=== PATIENT | female | born 1935 | race Caucasian/White ===

== ENCOUNTER → 2017-06-05 | Outpatient (CLI) | payer OTHER, BC ==
[2017-06-05 12:34] LABS: HEMATOCRIT 41.5 % (37-47); HEMOGLOBIN 13.8 g/dL (12.0-16.0); MEAN CELL VOLUME 87.2 fL (80-100); MEAN CORPUSCULAR HGB CONC 33.3 g/dl (32-36); MEAN PLATELET VOLUME 10.5 fL (7.4-10.4); PLATELET COUNT 301 K/uL (130-400); RED CELL DISTRIBUTION WIDTH CV 14.5 % (11.5-14.5); RED CELL DISTRIBUTION WIDTH SD 46.3 fL (36.4-46.3); WHITE BLOOD COUNT 5.52 K/uL (4.8-10.8)
[2017-06-05 13:44] LABS: BLOOD UREA NITROGEN 14 mg/dl (7-18); CARBON DIOXIDE 29 mmol/L (21-32); GLUCOSE 117 mg/dl (70-99); POTASSIUM 3.5 mmol/L (3.5-5.1); SODIUM 137 mmol/L (136-145)
== END | disposition home or self-care (01) ==
LOC: C.LABOAKS 12:55
PROVIDERS: ATTEND Nurse Practitioner
DX: I10 Essential (primary) hypertension (principal); R53.83 Other fatigue

== ENCOUNTER 2018-06-11 19:10 | Inpatient (IN) ==
[2018-06-11] MEDS ORDERED: SODIUM CHLORIDE 0.9% 500 ML IV SCH ×2 (19:45→21:30)
[2018-06-11 19:55] LABS: Basophils # (auto) 0.02 K/uL (0-0.2); Basophils % (auto) 0.2 %; Eosinophils # (auto) 0.15 K/uL (0-0.5); Eosinophils % (auto) 1.2 %; Hematocrit (blood only) 45.5 % (37-47); Hemoglobin 16.1 g/dL (12.0-16.0); Immature Granulocytes % (auto) 0.8 %; Lymphocytes # (auto) 1.62 K/uL (1.2-3.4); Lymphocytes % (auto) 12.6 %; Mean Corpuscular Hgb Conc 35.4 g/dL (32-36); Mean Corpuscular Volume 82.6 fL (80-100); Mean Platelet Volume 9.8 fL (7.4-10.4); Monocytes # (auto) 0.88 K/uL (0.11-0.59); Monocytes % (auto) 6.9 %; Neutrophils # (auto) 10.06 K/uL (1.4-6.5); Neutrophils % (auto) 78.3 %; Platelet Count 350 K/uL (130-400); RDW Coefficient of Variation 14.3 % (11.5-14.5); RDW Standard Deviation 43.1 fL (36.4-46.3); Red Blood Count 5.51 M/uL (4.2-5.4); White Blood Count 12.83 K/uL (4.8-10.8)
--- NOTE | 2018-06-11 20:05 | XRay Report ---
XR chest 1V portable CLINICAL HISTORY: weak eval for pna pain COMPARISON STUDY: No previous studies for comparison. FINDINGS: The bones soft tissues and hemidiaphragms are normal. The cardiomediastinal silhouette is n ormal. The lungs are clear. The pulmonary vasculature is normal. IMPRESSION: Negative chest. The above report was generated using voice recognition software. It may contain grammatical, syntax or spelling errors. Electronically signed by: Sanjay Abrams M.D. 06/11/2018 8:03 PM
[2018-06-11 20:12] LABS: iSTAT Creatinine 0.8 mg/dl (0.6-1.3); iSTAT Ionized Calcium 1.15 mmol/l (1.12-1.32)
[2018-06-11 20:13] LABS: Alanine Aminotransferase 40 U/L (12-78); Albumin Level 3.6 gm/dl (3.4-5.0); Aspartate Aminotransferase 31 U/L (15-37); Blood Urea Nitrogen 35 mg/dl (7-18); Calcium 9.3 mg/dl (8.5-10.1); Carbon Dioxide 25 mmol/L (21-32); Chloride 100 mmol/L (98-107); Est GFR (Non-African American) 54.4; Glucose 164 mg/dl (70-99); Sodium 137 mmol/L (136-145)
[2018-06-11 20:16] LABS: Magnesium 2.5 mg/dl (1.8-2.4)
[2018-06-11 20:21] LABS: Albumin Globulin Ratio 0.8 (0.9-2); Alkaline Phosphatase 115 U/L (45-117); Creatine Kinase MB 1.3 ng/ml (0.5-3.6); Globulin 4.3 gm/dl (2.5-4.0); Total Protein 7.9 gm/dl (6.4-8.2)
[2018-06-11] MEDS ORDERED: POTASSIUM CHLORIDE 10 MEQ TABCR PO STA (20:28)
[2018-06-11] MEDS ORDERED: METOPROLOL TARTRATE 1 MG/ML VIAL IV ONE (21:08)
[2018-06-11] MEDS ORDERED: POTASSIUM CHLORIDE / WTR 10 MEQ/100 ML PLCT IV STA (21:29)
[2018-06-11] MEDS ORDERED: METOPROLOL TARTRATE 1 MG/ML VIAL IV PRN (21:29)
[2018-06-11] MEDS ORDERED: LOSARTAN POTASSIUM 25 MG TAB PO STA (21:29)
[2018-06-11] MEDS ORDERED: ONDANSETRON INJ 2 MG/ML 2 ML VIAL IV PRN (22:43)
[2018-06-11] MEDS ORDERED: PIPERACILL/TAZOBAC CONSULT ACTIVE PRN (22:43)
[2018-06-11] MEDS ORDERED: SERTRALINE HCL 50 MG TABLET PO ONE (22:43)
[2018-06-11] MEDS ORDERED: NITROGLYCERIN SL 0.4 MG/TAB TAB SL PRN (22:43)
[2018-06-11] MEDS ORDERED: ACETAMINOPHEN 325 MG TAB PO PRN (22:43)
[2018-06-11] MEDS: NSS + 20MEQ KCL 20 MEQ/1,000 ML BAG IV SCH (22:45)
[2018-06-11] MEDS ORDERED: PATIENT'S HEIGHT AND/OR WEIGHT NEEDED SCH (23:00)
[2018-06-11] MEDS ORDERED: PIPERACILLIN/TAZOBACTAM 3.375 GM in DEXTROSE 5% 100 ML IV SCH (23:00)
[2018-06-11 23:12] LABS: Troponin I < 0.015 ng/ml (0-0.045)
[2018-06-11 23:13] LABS: INR 1.1 (0.9-1.1); Partial Thromboplastin Time 25.9 Seconds (21.0-31.0); Prothrombin Time 11.1 Seconds (9.0-12.0)
[2018-06-11] MEDS: HEPARIN SOD 5,000 UNIT/0.5 ML VIAL SQ SCH (23:44)
--- NOTE | 2018-06-11 23:52 | History and Physical Report ---
DATE OF ADMISSION: 06/11/2018 CHIEF COMPLAINT: Weakness. HISTORY OF PRESENT ILLNESS: This is an 82-year-old female with past medical history significant for hypertension, depression, recent diagnosis of shingles on her back about a month ago, finished prednisone and gabapentin, who lives at [facility]. She walks with a walker. Daughter helps her going out and getting food. On Sunday she went out to eat food and came back and sat on the couch and she is did not feel like getting up and she sat on the couch for whole until today. She did not feel like calling anyone. She did not eat anything. She did not take any medications. She wetted herself with bowel and bladder movements and today she decided to call her daughter and the daughter came and checked her and and cleaned her and brought the patinet to the ER. In the ER her labs showed hypokalemia. Vitals were stable, white count of 12, rest of the labs were okay. The patient went into SVT in the ER and the ER physician did a carotid massage which broke it, but later when I saw her, again she was in SVT ried carotid massage but was still in SVT.Given a dose of IV Lopressor, which brought her back to sinus rhythm. The patient also had decubitus ulcers in the coccyx region. Daughter said that they are there for 1 month. The patient denies any headache. No blurred visions. No earache. No runny nose, no sore throat, no difficulty swallowing. Denies any chest pain, no shortness of breath, no cough, no fever, no chills, no nausea, no vomiting, no abdominal pain and no swelling in the legs or rash. Currently resting comfortably and hemodynamically stable. ALLERGIES: No known drug allergies. PAST MEDICAL HISTORY: As mentioned above. PAST SURGICAL HISTORY: She had a right hip surgery. MEDICATIONS: The patient is on chlorthalidone 25 mg seems to be taken daily, losartan 50 mg daily, Zoloft 50 and 20 mg tablets daily, Crestor taking daily. Daughter says she is not taking her medications as was supposed to take them FAMILY HISTORY: Noncontributory. SOCIAL HISTORY: She states quit smoking about 2 years ago. Prior to that smoked on and off for a long time about pack a day. Alcohol occasional. Lives at the [facility]. REVIEW OF SYMPTOMS: As per HPI. Rest of review of systems negative. PHYSICAL EXAMINATION: GENERAL: The patient is of moderate build, not in acute distress. VITAL SIGNS: Temperature 36.8, pulse 84, respiratory rate 18, blood pressure 131/74, oxygen 97% on room air. HEENT: No pallor, no icterus. Pupils equal, round, and reactive to light. NECK: No JVD, no neck masses, no carotid bruits. CARDIOVASCULAR: S1, S2 heard, regular rate and rhythm, no murmur, no gallop. RESPIRATORY SYSTEM: Normal effort. No accessory muscle use. No wheezing, no crackles. ABDOMEN: Soft, bowel sounds present. Nontender. No distention. CENTRAL NERVOUS SYSTEM: Cranial nerves II-XII grossly intact. Nonfocal. EXTREMITIES: No edema, no erythema. Skin Stage 3-4 decubitus ulcers in coccyx region LABORATORY DATA: WBC 12.8, hemoglobin 16.1, hematocrit 45.5, platelets 350. Sodium 137, potassium 3, chloride 100, bicarbonate 25, BUN 35, creatinine 0.9, serum glucose 164, calcium 9.3, magnesium 2.5, total bilirubin 1, AST 31, ALT 40, alkaline phosphatase is 115, total creatine kinase 112, CK-MB 1.3, troponin less than 0.003, TSH 2.5. Chest x-ray, negative chest x-ray. EKG: Showed normal sinus rhythm, rate of 88, nonspecific ST abnormalities seen. ASSESSMENT AND PLAN: This is an 82-year-old female who presents with weakness. 1. Weakness. The patient was not able to get up from the couch since last Sunday. Recently had shingles and treated with prednisone and gabapentin, but no longer taking those medications. Her labs are okay, awaiting urinalysis. We will get PT, OT evaluation. Monitor in the hospital. 2. Supraventricular tachycardia. The patient has episodes of supraventricular tachycardia in the ER which was initially broke with carotid massage and second time was given IV Lopressor which helped. We will start her on IV Lopressor p.r.n. It could be from the dehydration or could be from hypokalemia. We will replace the potassium. We will monitor on tele floor. Serial cardiac enzymes, echocardiogram. Consult Cardiology for further recommendations. 3. Decubitus ulcer stage III to IV on the buttock region. We will get the cultures, wound care and was started on Zosyn. 4. Shingles from last 1 month, seems to be healed. The patient says the pain is much improved. Was treated with gabapentin and prednisone, but she says she is no longer taking them. 5. History of hypertension, seems to be on chlorthalidone and losartan, did not take this medication from last Sunday. Holding the chlorthalidone for Hypokalemia. Continue losartan with holding parameters. 6. Depression, on Zoloft. 7. Deep venous thrombosis prophylaxis. Heparin subQ. 8. Disposition: Monitor in tele floor. Level 1. Full code as per discussion with the daughter. PT and OT. Social service to help with discharge planning. WEN
--- NOTE | 2018-06-12 01:04 | Emergency Department Note ---
Entered by Summer Bernal acting as a scribe for History of Present Illness General Chief complaint: Weakness Stated complaint: WEAKNESS, ULCERS ON BUTTOCKS Source: patient Mode of arrival: EMS Limitations: no limitations History of Present Illness Provider complaint: Weakness Onset (ago): day(s) 3 Pain Consistency: + other (worsening) Quality: + other (weakness) Associated symptoms: + other (Additional symptoms: fatigue, sores on buttocks. Denies: abdominal pain, diarrhea, hematochezia, melena); no chest pain, no cough, no fever/chills, no nausea/vomiting and no shortness of breath Treatments prior to arrival: none The patient is an 82 year old female with no significant past medical history who presents to the Emergency Room with complaints of worsening weakness starting 3 days ago. The patient reports that she sat down on a recliner at home 3 days ago and was unable to get up until her daughter visited her today. She states that she thus did not eat and drink for 3 days and had to go to the bathroom on herself. She notes that she is tired but otherwise denies any cough, shortness of breath, abdominal pain, chest pain, vomiting, fevers, diarrhea, hematochezia, and melena. Per daughter, the patient lives by herself in the independent living care side of the [facility]. The daughter reports that she last visited the patient 5 days ago and has called her several times over the past few days. She states that the patient only confessed that she has been stuck in her chair today. The daughter notes that she and nursing staff at the [facility] subsequently went to the patient's home and helped her get up. Per daughter, the patient was able to tolerate jello, meat sticks, and water, and she urinated in the bathroom just before EMS convinced the patient to come to the ED. She adds the urine on the patient's recliner did not appear that dark and that the nurses noted several sores on the patient's buttocks. The patient denies a history of atrial fibrillation, and her daughter states that the patient normally sees the doctor at the [facility]. Home Medications Home Medications Medication Instructions Recorded Confirmed Type chlorthalidone 25 mg PO DIRECTED 06/11/18 06/11/18 History gabapentin 300 mg PO DIRECTED 06/11/18 06/11/18 History losartan 50 mg PO DIRECTED 06/11/18 06/11/18 History prednisone 20 mg PO DIRECTED 06/11/18 06/11/18 History sertraline [Zoloft] 25 mg PO DIRECTED 06/11/18 06/11/18 History sertraline [Zoloft] 50 mg PO DIRECTED 06/11/18 06/11/18 History Allergies Allergy/AdvReac Type Severity Reaction Status Date / Time No Known Allergies Allergy Verified 06/11/18 21:05 Past Med/Surg History Medical History No significant past medical history Social History Preferred Language: Occitan Communication Ability: Effective Digital Sales Director Required: No Beliefs That Will Affect Care: None Current Living Situation: Personal Care Facility Current Living Situation Comment: Lives at [facility] current occupational status: retired Other Information That Helps Us Care for You: No Feels Safe at Home: Yes Safety Concerns: Feels Safe At This Time Smoking Status: Never smoker Do You Dip or Chew Tobacco: No Second Hand Exposure: No Tobacco Cessation Education Requested by Patient: No Hx Alcohol Use: No Hx Substance Use: No Review of Systems See HPI for pertinent positives & negatives. and A total of 10 systems reviewed and were otherwise negative Physical Exam Vital Signs Vital Signs - 24 hr 06/11/18 19:16 06/11/18 19:19 06/11/18 19:24 Temperature 36.8 C Temperature Source Oral Sepsis Recent Fever Within 48 Hours No Sepsis Action Taken by Nursing No Action Required Pulse Rate 98 H 160 H 97 H Pulse Rate [Apical] Pulse Rate from SpO2 Sensor 98 H 159 H Pulse Rhythm [Apical] Pulse Strength [Apical] Respiratory Rate 22 22 22 Respiratory Effort / Characteristics Respiratory Depth Respiratory Pattern Blood Pressure 139/77 139/77 Blood Pressure [Right Arm] Blood Pressure Mean 97 97 Blood Pressure Mean [Right Arm] Pulse Oximetry 96 95 97 Oxygen Delivery Method Room Air 06/11/18 19:30 06/11/18 20:00 06/11/18 20:30 Temperature Temperature Source Sepsis Recent Fever Within 48 Hours Sepsis Action Taken by Nursing Pulse Rate 95 H 150 H 85 Pulse Rate [Apical] Pulse Rate from SpO2 Sensor 102 H Pulse Rhythm [Apical] Pulse Strength [Apical] Respiratory Rate 24 18 23 Respiratory Effort / Characteristics Respiratory Depth Respiratory Pattern Blood Pressure Blood Pressure [Right Arm] Blood Pressure Mean Blood Pressure Mean [Right Arm] Pulse Oximetry 96 Oxygen Delivery Method 06/11/18 20:52 06/11/18 21:04 06/11/18 21:10 Temperature Temperature Source Sepsis Recent Fever Within 48 Hours Sepsis Action Taken by Nursing Pulse Rate 168 H 152 H Pulse Rate [Apical] Pulse Rate from SpO2 Sensor Pulse Rhythm [Apical] Pulse Strength [Apical] Respiratory Rate 24 33 H Respiratory Effort / Characteristics Respiratory Depth Respiratory Pattern Blood Pressure 144/91 H Blood Pressure [Right Arm] Blood Pressure Mean 108 Blood Pressure Mean [Right Arm] Pulse Oximetry 97 Oxygen Delivery Method Room Air 06/11/18 21:13 06/11/18 21:16 06/11/18 21:17 Temperature Temperature Source Sepsis Recent Fever Within 48 Hours Sepsis Action Taken by Nursing Pulse Rate 161 H 84 77 Pulse Rate [Apical] Pulse Rate from SpO2 Sensor Pulse Rhythm [Apical] Pulse Strength [Apical] Respiratory Rate 18 16 Respiratory Effort / Characteristics Respiratory Depth Respiratory Pattern Blood Pressure 144/91 H 131/74 Blood Pressure [Right Arm] Blood Pressure Mean 93 Blood Pressure Mean [Right Arm] Pulse Oximetry Oxygen Delivery Method 06/11/18 21:30 06/11/18 21:31 06/11/18 21:32 Temperature Temperature Source Sepsis Recent Fever Within 48 Hours Sepsis Action Taken by Nursing Pulse Rate 73 72 74 Pulse Rate [Apical] Pulse Rate from SpO2 Sensor Pulse Rhythm [Apical] Pulse Strength [Apical] Respiratory Rate 19 20 16 Respiratory Effort / Characteristics Respiratory Depth Respiratory Pattern Blood Pressure 133/87 Blood Pressure [Right Arm] Blood Pressure Mean 102 Blood Pressure Mean [Right Arm] Pulse Oximetry 97 Oxygen Delivery Method Room Air 06/11/18 21:46 06/11/18 22:00 06/11/18 22:01 Temperature Temperature Source Sepsis Recent Fever Within 48 Hours Sepsis Action Taken by Nursing Pulse Rate 71 70 69 Pulse Rate [Apical] Pulse Rate from SpO2 Sensor Pulse Rhythm [Apical] Pulse Strength [Apical] Respiratory Rate 16 21 19 Respiratory Effort / Characteristics Respiratory Depth Respiratory Pattern Blood Pressure 145/83 H 136/74 Blood Pressure [Right Arm] Blood Pressure Mean 103 94 Blood Pressure Mean [Right Arm] Pulse Oximetry Oxygen Delivery Method 06/11/18 22:51 06/11/18 22:56 06/11/18 23:00 Temperature 36.6 C Temperature Source Oral Sepsis Recent Fever Within 48 Hours Sepsis Action Taken by Nursing Pulse Rate 71 Pulse Rate [Apical] 70 Pulse Rate from SpO2 Sensor Pulse Rhythm [Apical] Regular Pulse Strength [Apical] Normal Respiratory Rate 18 Respiratory Effort / Characteristics Non-Labored Spontaneous Non-Labored Spontaneous Respiratory Depth Normal Normal Respiratory Pattern Agonal Regular Blood Pressure Blood Pressure [Right Arm] 133/79 Blood Pressure Mean Blood Pressure Mean [Right Arm] 97 Pulse Oximetry 98 Oxygen Delivery Method Room Air Room Air Constitutional: Vital signs reviewed. Eyes: Pupils are equal round reactive to light. Conjunctiva are noninjected. ENT: Pharynx is clear without erythema or exudate. Mucous membranes are moist. Neck supple without meningeal signs. Respiratory: Clear to auscultation bilaterally. Breath sounds are equal bilaterally. Cardiovascular: Regular rate and rhythm. No rubs or gallops. GI: Soft, nondistended and nontender. Bowel sounds are present. Musculoskeletal: No peripheral edema. No lower extremity tenderness. Integumentary: No cyanosis. Decubiti on the buttocks bilaterally. Neurological: The patient is awake and alert. No focal deficits. Psychiatric: Normal affect. Course 1923: [facility] and a complete history and physical examination were performed. 2031: I checked on the patient and she has no complaints at this time. Her heart rate is in the 80s. I recommended hospitalization. The nurses are getting a cath urine from her. 2035: I reviewed the patient's case with Dr. Bunn - Awa Ruiz. Dr. Bunn will evaluate the patient for further management. Consultations Consultation #1: I reviewed the patient's case with Awa Mckeon. Dr. Bunn will evaluate the patient for further management. Time: 20:36 Administered Medications Heparin Sodium (Porcine) (Heparin Sodium (Porcine)) 5,000 units SQ Q8 [facility] Stop: 07/11/18 22:42 Last Admin: 06/11/18 23:44 Dose: 5,000 units Documented by: [id number] Cosigned by: [id number] Potassium Chloride/Sodium Chloride (Normal Saline W/20 Meq Kcl) 20 meq in 1,000 mls @ 100 mls/hr IV .Q10H ELSIE Stop: 07/11/18 21:28 Last Admin: 06/11/18 22:45 Dose: 100 mls/hr Documented by: [id number] Discontinued Medications Sodium Chloride (Nss) 500 mls @ 999 mls/hr IV .Q31M ELSIE Stop: 06/11/18 20:15 Last Infusion: 06/11/18 20:48 Dose: 0 mls/hr Documented by: [id number] Admin: 06/11/18 19:52 Dose: 999 mls/hr Documented by: [id number] Sodium Chloride (Nss) 500 mls @ 999 mls/hr IV .Q31M ELSIE Stop: 06/11/18 22:00 Last Infusion: 06/11/18 22:45 Dose: 0 mls/hr Documented by: [id number] Admin: 06/11/18 21:40 Dose: 999 mls/hr Documented by: [id number] Potassium Chloride (K John / Wtr) 10 meq in 100 mls @ 100 mls/hr IV Q1H STA Stop: 06/11/18 22:28 Last Infusion: 06/11/18 23:17 Dose: 0 mls/hr Documented by: [id number] Admin: 06/11/18 21:39 Dose: 100 mls/hr Documented by: [id number] Piperacillin Sod/Tazobactam (Sod 3.375 gm/ Dextrose) 115 mls @ 230 mls/hr IV TODAY@2300 ELSIE; Protocol Stop: 06/11/18 23:29 Last Infusion: 06/12/18 00:17 Dose: 0 mls/hr Documented by: [id number] Admin: 06/11/18 23:43 Dose: 230 mls/hr Documented by: [id number] Losartan Potassium (Cozaar) 25 mg PO NOW STA Stop: 06/11/18 21:30 Last Admin: 06/11/18 21:40 Dose: 25 mg Documented by: [id number] Metoprolol Tartrate (Lopressor) Confirm Administered Dose 5 mg IV .STK-MED ONE Stop: 06/11/18 21:09 Last Increment: 06/11/18 21:13 Dose: 2.5 mg Documented by: [id number] Miscellaneous (Patient's Height And/Or Weight Needed) 1 ea N/A Q2H [facility] Stop: 07/11/18 22:59 Last Admin: 06/11/18 23:54 Dose: Not Given Documented by: [id number] Potassium Chloride (Klor-Con M10) 20 meq PO NOW STA Stop: 06/11/18 20:29 Last Admin: 06/11/18 21:13 Dose: 20 meq Documented by: [id number] Sertraline HCl (Zoloft) 50 mg PO NOW ONE Stop: 06/11/18 22:44 Last Admin: 06/11/18 23:43 Dose: 50 mg Documented by: [id number] Medical Decision Making Differential Diagnosis Differential diagnosis includes: acute kidney injury, rhabdomyolysis, hyperkalemia, SVT, dehydration, infection. Medical Records Attestation: I reviewed the patient's medical records. I did perform a limited focused review of portions of the patient's old chart on the electronic medical record. The patient has had no recent pertinent visits to this hospital. Home Medications Current Medication List: was personally reviewed by me Laboratory Data Attestation: I reviewed the patient's lab results. Result diagrams: 06/11/18 19:40 06/11/18 19:40 Lab Results 06/11/18 06/11/18 06/11/18 Range/Units 19:40 19:40 19:40 WBC 12.83 H (4.8-10.8) K/uL RBC 5.51 H (4.2-5.4) M/uL Hgb 16.1 H (12.0-16.0) g/dL POC Hgb (12.0-16.0) g/dl Hct 45.5 (37-47) % POC Hct (37-47) % MCV 82.6 (80-100) fL MCH 29.2 (25-34) pg MCHC 35.4 (32-36) g/dL RDW Std Deviation 43.1 (36.4-46.3) fL RDW Coeff of Ranjana 14.3 (11.5-14.5) % Plt Count 350 (130-400) K/uL MPV 9.8 (7.4-10.4) fL Immature Gran % (Auto) 0.8 % Neut % (Auto) 78.3 % Lymph % (Auto) 12.6 % Runnels % (Auto) 6.9 % Eos % (Auto) 1.2 % Baso % (Auto) 0.2 % Immature Gran # (Auto) 0.10 H (0.00-0.02) K/uL Neut # (Auto) 10.06 H (1.4-6.5) K/uL Lymph # (Auto) 1.62 (1.2-3.4) K/uL Runnels # (Auto) 0.88 H (0.11-0.59) K/uL Eos # (Auto) 0.15 (0-0.5) K/uL Baso # (Auto) 0.02 (0-0.2) K/uL PT (9.0-12.0) Seconds INR (0.9-1.1) APTT (21.0-31.0) Seconds PTT Ratio POC Sodium (135-144) mEq/L Sodium 137 (136-145) mmol/L POC Potassium (3.3-5.0) mEq/L Potassium 3.0 L (3.5-5.1) mmol/L POC Chloride (101-112) mEq/L Chloride 100 (98-107) mmol/L Carbon Dioxide 25 (21-32) mmol/L POC Total CO2 (24-31) mEq/l Anion Gap 11.0 (3-11) POC Anion Gap (16-25) mmol/L POC BUN (7-18) mg/dl BUN 35 H (7-18) mg/dl Creatinine 0.97 (0.6-1.2) mg/dl POC Creatinine (0.6-1.3) mg/dl Est Cr Clr Drug Dosing Not Reportable Est GFR ( Amer) 63.0 Est GFR (Non-Af Amer) 54.4 BUN/Creatinine Ratio 36.0 H (10-20) Glucose 164 H (70-99) mg/dl POC Glucose (other) (70-99) mg/dl Calcium 9.3 (8.5-10.1) mg/dl POC Ioniz Calcium Massiel (1.12-1.32) mmol/l Magnesium 2.5 H (1.8-2.4) mg/dl Total Bilirubin 1.0 (0.2-1) mg/dl AST 31 (15-37) U/L ALT 40 (12-78) U/L Alkaline Phosphatase 115 (45-117) U/L Total Creatine Kinase 112 (26-192) U/L CK-MB (CK-2) 1.3 (0.5-3.6) ng/ml POC Troponin I (0-0.045) ng/ml Troponin I < 0.015 (0-0.045) ng/ml Total Protein 7.9 (6.4-8.2) gm/dl Albumin 3.6 (3.4-5.0) gm/dl Globulin 4.3 H (2.5-4.0) gm/dl Albumin/Globulin Ratio 0.8 L (0.9-2) TSH 2.590 (0.300-4.500) uIu/ml 06/11/18 06/11/18 06/11/18 Range/Units 19:40 19:48 19:50 WBC (4.8-10.8) K/uL RBC (4.2-5.4) M/uL Hgb (12.0-16.0) g/dL POC Hgb 17.0 H (12.0-16.0) g/dl Hct (37-47) % POC Hct 50 H (37-47) % MCV (80-100) fL MCH (25-34) pg MCHC (32-36) g/dL RDW Std Deviation (36.4-46.3) fL RDW Coeff of Ranjana (11.5-14.5) % Plt Count (130-400) K/uL MPV (7.4-10.4) fL Immature Gran % (Auto) % Neut % (Auto) % Lymph % (Auto) % Runnels % (Auto) % Eos % (Auto) % Baso % (Auto) % Immature Gran # (Auto) (0.00-0.02) K/uL Neut # (Auto) (1.4-6.5) K/uL Lymph # (Auto) (1.2-3.4) K/uL Runnels # (Auto) (0.11-0.59) K/uL Eos # (Auto) (0-0.5) K/uL Baso # (Auto) (0-0.2) K/uL PT 11.1 (9.0-12.0) Seconds INR 1.1 (0.9-1.1) APTT 25.9 (21.0-31.0) Seconds PTT Ratio 1.0 POC Sodium 138 (135-144) mEq/L Sodium (136-145) mmol/L POC Potassium 3.0 L (3.3-5.0) mEq/L Potassium (3.5-5.1) mmol/L POC Chloride 99 L (101-112) mEq/L Chloride (98-107) mmol/L Carbon Dioxide (21-32) mmol/L POC Total CO2 25 (24-31) mEq/l Anion Gap (3-11) POC Anion Gap 19.0 (16-25) mmol/L POC BUN 35 H (7-18) mg/dl BUN (7-18) mg/dl Creatinine (0.6-1.2) mg/dl POC Creatinine 0.8 (0.6-1.3) mg/dl Est Cr Clr Drug Dosing Est GFR ( Amer) Est GFR (Non-Af Amer) BUN/Creatinine Ratio (10-20) Glucose (70-99) mg/dl POC Glucose (other) 175 H (70-99) mg/dl Calcium (8.5-10.1) mg/dl POC Ioniz Calcium Massiel 1.15 (1.12-1.32) mmol/l Magnesium (1.8-2.4) mg/dl Total Bilirubin (0.2-1) mg/dl AST (15-37) U/L ALT (12-78) U/L Alkaline Phosphatase (45-117) U/L Total Creatine Kinase (26-192) U/L CK-MB (CK-2) (0.5-3.6) ng/ml POC Troponin I < 0.03 (0-0.045) ng/ml Troponin I (0-0.045) ng/ml Total Protein (6.4-8.2) gm/dl Albumin (3.4-5.0) gm/dl Globulin (2.5-4.0) gm/dl Albumin/Globulin Ratio (0.9-2) TSH (0.300-4.500) uIu/ml Imaging Data Radiologist's Impression: Radiology results as stated below per my review and th e radiologist's interpretation: XR chest 1V portable CLINICAL HISTORY: weak eval for pna pain COMPARISON STUDY: No previous studies for comparison. FINDINGS: The bones soft tissues and hemidiaphragms are normal. The cardiomediastinal silhouette is normal. The lungs are clear. The pulmonary vasculature is normal. IMPRESSION: Negative chest. The above report was generated using voice recognition software. It may contain grammatical, syntax or spelling errors. Electronically signed by: Sanjay Abrams M.D. 06/11/2018 8:03 PM ECG Data Attestation: I personally reviewed and interpreted this ECG as follows: Indication: weakness Rate (beats per minute): 88 Rhythm: normal sinus Findings: + other (flattened T waves, QRS is 74 ms); no ST elevation Blood Pressure Blood Pressure Findings: Normal blood pressure MDM Narrative I did evaluate the patient as noted above. Patient is presenting with generalized weakness. She sat down on Sunday and has not been able to get up since. She was unable to eat or drink or get to the bathroom. Her daughter found her today. While I was examining the patient the patient went into SVT. I did perform a carotid massage and she was converted back to normal sinus rhythm. She was asymptomatic during this time and did not notice any palpitations or shortness of breath or chest pain. IV access was established. The patient was placed on a continuous radiation monitor. I did order and personally review the patient's 12-lead EKG as described above. She has no signs of acute ischemia. I did order and personally reviewed the images of the patient's chest x-ray as described above. There is no evidence of pneumonia. I did order a urine analysis. I did order and review the patient's blood work as noted in the electronic medical record. She has hypokalemia and hypomagnesemia. Her renal function is unremarkable. She does appear slightly hemoconcentrated consistent with diet dehydration. She was given normal saline IV. I did discuss the test results with the patient. I did recommend hospitalization for further care and evaluation. She was given oral potassium here. I did discuss case with the hospitalist and trimming caser. Impression & Plan Generalized weakness, Ambulatory dysfunction, Hypokalemia, Hypermagnesemia, Sacral decubitus ulcer, SVT (supraventricular tachycardia) Discharge Plan Visit Data *Final* Discharge Date/Time: 06/11/18 22:06 Chief Complaint: Weakness Stated Complaint: WEAKNESS, ULCERS ON BUTTOCKS ED Provider: Eliel Palomo Discharge Problem: Generalized weakness, Ambulatory dysfunction, Hypokalemia, Hypermagnesemia, Sacral decubitus ulcer, SVT (supraventricular tachycardia) Patient Disposition: Admitted As Inpatient Discharge Instructions Interventions: ED Discharge Assessment Last Done: 06/11/18 22:06 Discharge Problem: Sacral decubitus ulcer Qualifiers: Pressure injury stage: unspecified pressure injury stage Qualified Code(s): L89.159 - Pressure ulcer of sacral region, unspecified stage The scribe's documentation has been prepared under my direction and personally reviewed by me in its entirety. I confirm that the note above accurately reflects all work, treatment, procedures, and medical decision making performed by me.
[2018-06-12] MEDS: PIPERACILLIN/TAZOBACTAM 3.375 GM in DEXTROSE 5% 100 ML IV SCH ×3 (03:48→20:30)
[2018-06-12 05:13] LABS: Basophils # (auto) 0.04 K/uL (0-0.2); Basophils % (auto) 0.4 %; Eosinophils # (auto) 0.56 K/uL (0-0.5); Hematocrit (blood only) 38.2 % (37-47); Hemoglobin 13.4 g/dL (12.0-16.0); Immature Granulocytes # (auto) 0.06 K/uL (0.00-0.02); Immature Granulocytes % (auto) 0.6 %; Lymphocytes # (auto) 2.21 K/uL (1.2-3.4); Lymphocytes % (auto) 23.7 %; Mean Corpuscular Hgb Conc 35.1 g/dL (32-36); Mean Corpuscular Volume 82.7 fL (80-100); Mean Platelet Volume 9.7 fL (7.4-10.4); Monocytes # (auto) 0.82 K/uL (0.11-0.59); Monocytes % (auto) 8.8 %; Neutrophils # (auto) 5.62 K/uL (1.4-6.5); Neutrophils % (auto) 60.5 %; Platelet Count 297 K/uL (130-400); RDW Coefficient of Variation 14.6 % (11.5-14.5); RDW Standard Deviation 44.1 fL (36.4-46.3); Red Blood Count 4.62 M/uL (4.2-5.4); White Blood Count 9.31 K/uL (4.8-10.8)
[2018-06-12 05:49] LABS: BUN Creatinine Ratio 38.9 (10-20); Calcium 8.2 mg/dl (8.5-10.1); Creatinine Clr Calc Pharmacy 55.2 ml/min; Est GFR (African American) 93.5; Est GFR (Non-African American) 80.7; Magnesium 2.2 mg/dl (1.8-2.4)
[2018-06-12 05:53] LABS: Troponin I 0.02 ng/ml (0-0.045)
[2018-06-12] MEDS: HEPARIN SOD 5,000 UNIT/0.5 ML VIAL SQ SCH ×3 (05:58→21:42)
[2018-06-12 06:12] LABS: Estimated Average Glucose 134 mg/dl; Hemoglobin A1C 6.3 % (4.5-5.6)
[2018-06-12] MEDS ORDERED: PERFLUTREN LIPID MICROSPHERE (DEFINITY) IV ONE (07:15)
[2018-06-12] MEDS: LACTOBACILLUS ACIDOPHILUS 1 GM PACK PO SCH ×3 (07:39→18:11)
[2018-06-12] MEDS: NSS + 20MEQ KCL 20 MEQ/1,000 ML BAG IV SCH (08:20)
[2018-06-12] MEDS: LOSARTAN POTASSIUM 50 MG TAB PO SCH (08:21)
[2018-06-12] MEDS: SERTRALINE HCL 50 MG TABLET PO SCH (08:21)
[2018-06-12] MEDS ORDERED: GABAPENTIN 300 MG CAP PO SCH (09:00)
--- NOTE | 2018-06-12 10:46 | Cardiology Consultation ---
Date of Consultation June 12, 2018 Assessment & Plan (1) SVT (supraventricular tachycardia): At this time patient is in sinus rhythm. She does not have any subjective symptoms of her heart racing. Apparently her heart rate has come back into the fast heart rhythm when she gets up from a seated position. Her echocardiogram reveals normal LVEF. I think at this time it is most prudent to hold off on further changes in her medication until her next potassium results are available which are to be drawn in a few minutes at 11 AM. Repeat troponin is also to be drawn at that time as well. Her proceeding to troponin levels were within normal limits. (2) Hypokalemia: Await potassium level. Once potassium is normalized, will likely start low-dose metoprolol tartrate, perhaps 25 mg twice daily. History of Present Illness Attending Physician: Harsha Rogers MD History of Present Illness Noelle Song is an 82 year old female seen in cardiology consultation per the request of Dr Bunn for the evaluation of paroxysmal supraventricular tachycardia. The patient tells me that she does not follow with cardiology on a routine basis and has never had any heart difficulty in the past. She was referred to the emergency room yesterday having had several days of profound weakness. She could not get up off her couch. In the emergency room she had been noted to have profound hypokalemia with potassium level of 3 mmol/L. She had 2 brief episodes of narrow complex tachycardia in the range of 150 bpm in the emergency room first of which was apparently terminated with a carotid massage and second of which was treated with IV metoprolol. She rested well after arrival to the telemetry floor overnight last night. She had a recurrent episode of narrow complex tachycardia in the range of 150 bpm at 451 this morning and again at just about 8 AM this morning. Currently sinus rhythm in the 80 bpm range is present on telemetry. Her telemetry was also notable for an episode of bradycardia at 747 this morning with heart rates in the 40 bpm range. P waves appear to be visible without pause or AV block. Allergies Allergy/AdvReac Type Severity Reaction Status Date / Time No Known Allergies Allergy Verified 06/11/18 21:05 Home Medications Home Medications Medication Instructions Recorded Confirmed Type chlorthalidone 25 mg PO DIRECTED 06/11/18 06/11/18 History gabapentin 300 mg PO DIRECTED 06/11/18 06/11/18 History losartan 50 mg PO DIRECTED 06/11/18 06/11/18 History prednisone 20 mg PO DIRECTED 06/11/18 06/11/18 History sertraline [Zoloft] 25 mg PO DIRECTED 06/11/18 06/11/18 History sertraline [Zoloft] 50 mg PO DIRECTED 06/11/18 06/11/18 History Patient History Medical History No significant past medical history Social History Preferred Language: Citizen Of [place] Communication Ability: Effective Treasury Assistant Required: No Beliefs That Will Affect Care: None Current Living Situation: Personal Care Facility Current Living Situation Comment: Lives at [facility] current occupational status: retired Other Information That Helps Us Care for You: No Feels Safe at Home: Yes Safety Concerns: Feels Safe At This Time Smoking Status: Never smoker Do You Dip or Chew Tobacco: No Second Hand Exposure: No Tobacco Cessation Education Requested by Patient: No Hx Alcohol Use: No Hx Substance Use: No Review of Systems Review of Systems: All systems reviewed & are unremarkable except as noted in HPI & below Physical Exam Physical Exam: General: no acute distress and stated age Eyes: conjunctiva are pink and non-injected, sclera clear Neck: normal jugular venous pulse, no hepatojugular reflux Chest: normal shape and normal respiratory effort Lungs: clear to auscultation and percussion Cardiac Exam: - regular heart sounds, no murmurs, rubs, or gallops, no jugular venous distention Abdomen: abdomen soft, non-tender, no abnormal masses and no hepatosplenomegaly Musculoskeletal: no gait disturbance, no weakness Extremities: no edema and no cyanosis Neuro:awake, coversant, follows commands, no focal motor deficits Psych: appropriate affect and insight. Results & Data Vital Signs (Past 12 Hours) Vital Signs Temp Pulse Pulse Resp BP BP Pulse Ox 06/12/18 08:11 134 H 107/71 06/12/18 08:00 66 06/12/18 07:07 36.5 C 68 18 121/65 96 06/12/18 03:19 36.4 C L 70 16 116/72 95 06/11/18 23:00 71 06/11/18 22:51 36.6 C 70 18 133/79 98 Diagnostic Findings EKG performed 06/11/2018 at 1943 revealed normal sinus rhythm 80 bpm with mild nonspecific T wave flattening. Repeat tracing this morning 06/12/2018 revealed sinus rhythm with occasional premature atrial contractions and ongoing nonspecific diffuse T wave flattening. An echocardiogram was performed this morning reviewed independently by the undersigned that revealed mild concentric left ventricular hypertrophy. The left ventricular wall motion was normal without regional wall motion abnormality's. Left ventricular systolic function was normal with qualitative left ventricular ejection fraction of 60 to 65%. Grade 1 diastolic dysfunction was noted. Medications Administered Current Inpatient Medications Acetaminophen (Tylenol) 650 mg PO Q4H PRN PRN Reason: Pain or Fever Stop: 07/11/18 22:42 Gabapentin (Neurontin) 300 mg PO QAM [facility] Stop: 07/12/18 08:59 Last Admin: 06/12/18 08:21 Dose: 300 mg Documented by: Heparin Sodium (Porcine) (Heparin Sodium (Porcine)) 5,000 units SQ Q8 [facility] Stop: 07/11/18 22:42 Last Admin: 06/12/18 05:58 Dose: 5,000 units Documented by: Potassium Chloride/Sodium Chloride (Normal Saline W/20 Meq Kcl) 20 meq in 1,000 mls @ 100 mls/hr IV .Q10H [facility] Stop: 07/11/18 21:28 Last Admin: 06/12/18 08:20 Dose: 100 mls/hr Documented by: Piperacillin Sod/Tazobactam (Sod 3.375 gm/ Dextrose) 115 mls @ 28.75 mls/hr IV Q8H [facility]; Protocol Stop: 06/22/18 03:59 Last Infusion: 06/12/18 07:38 Dose: Infused Documented by: Lactobacillus Acidophilus (Floranex Granules/Powder Packet) 1 gm PO TIDM [facility] Stop: 07/12/18 07:59 Last Admin: 06/12/18 07:39 Dose: 1 gm Documented by: Losartan Potassium (Cozaar) 50 mg PO QAM [facility] Stop: 07/12/18 08:59 Last Admin: 06/12/18 08:21 Dose: 50 mg Documented by: Metoprolol Tartrate (Lopressor) 2.5 mg IV Q4 PRN PRN Reason: Tachycardia Stop: 07/11/18 21:28 Last Admin: 06/12/18 08:11 Dose: 2.5 mg Documented by: Miscellaneous Information (Consult) 1 ea N/A UD PRN PRN Reason: Consult Stop: 07/11/18 22:42 Nitroglycerin (Nitrostat) 0.4 mg UD PRN PRN Reason: Chest Pain Stop: 07/11/18 22:42 Ondansetron HCl (Zofran) 4 mg IV Q6H PRN PRN Reason: Nausea Stop: 07/11/18 22:42 Sertraline HCl (Zoloft) 50 mg PO [facility] Stop: 07/12/18 08:59 Last Admin: 06/12/18 08:21 Dose: 50 mg Documented by:
[2018-06-12 11:26] LABS: BUN Creatinine Ratio 33.4 (10-20); Calcium 8.3 mg/dl (8.5-10.1); Creatinine Clr Calc Pharmacy 47.7 ml/min; Est GFR (African American) 78.4; Est GFR (Non-African American) 67.6; Potassium 3.3 mmol/L (3.5-5.1)
[2018-06-12 11:31] LABS: Troponin I 0.017 ng/ml (0-0.045)
[2018-06-12] MEDS ORDERED: POTASSIUM CHLORIDE 20 MEQ TABCR PO STA (11:41)
[2018-06-12] MEDS ORDERED: METOPROLOL TARTRATE 25 MG TAB PO STA (13:29)
--- NOTE | 2018-06-12 16:53 | Hospitalist Progress Note ---
Date of Service June 12, 2018 Assessment & Plan (1) Hypokalemia: This is an 82-year-old female who presents with weakness. Weakness -described as patient not being able to get up from couch for several days -unclear what is the primary cause of weakness -multiple differentials are being treated including treating hypokalemia, possible infection, and supraventricular tachycardia -patient being evaluated by PT/OT Hypokalemia -admission potassium is 3 and after potassium supplements in IV fluids, the serum potassium 3.3 on 06/12/18; oral potassium given -check serum potassium on 06/13/18 Supraventricular tachycardia -2 brief episodes of narrow complex tachycardia in the range of 150 bpm in the emergency room first of which was apparently terminated with a carotid massage and second of which was treated with IV metoprolol -while on telemetry on 06/12/18 patient had a recurrent episode of narrow complex tachycardia in the range of 150 bpm at 4:51 AM and again at just about 8 AM this morning; also episode of bradycardia in the 40 bpms rang at 7:47 AM -cardiology service started patient on low dose oral metoprolol; continue monitoring on telemetry Decubitus ulcer stage III to IV on the buttock region. -started on Zosyn by admitting hospitalist, will continue -wound care -follow wound care culture, blood culture, send urinalysis Monitor urine output in case of urinary retention -send urine for urinalysis when ready History of shingles -was treated in the past 1 month Hypertension -blood pressure controlled and holding chlorthalidone and holding losartan Depression -on Zoloft. Deep venous thrombosis prophylaxis -Heparin subcutaneous daughter [phone]; [phone] Subjective This AM the patient on telemetry had episodes of supraventricular tachycardia. Patient was started on beta ute by cardiology service denies chest pain or shortness of breath. denies palpitations. denies lightheadedness. Patient reports she has been able to ambulate. Patient has not urinated yet Physical Exam Constitutional: WD/WN, vitals as above Eyes: PERRL, conjunctivae normal, anicteric sclerae EOM intact bilaterally ENMT: external ear and nose normal, oropharynx normal Neck: trachea midline, no thyromegaly Respiratory: normal respiratory effort, lungs clear to auscultation Cardiovascular: Rate/Rhythm: regular rhythm and + bradycardic Gastrointestinal (Abdomen): normal bowel sounds, soft, nontender, no hepatosplenomegaly Musculoskeletal: Head/Neck/Chest: normocephalic and head atraumatic Neurologic: PERRL, EOMI, accommodation nl, no face palsy, no dysarthria Psychiatric: Orientation: alert and oriented x 3 Results & Data Vital Signs (Past 12 Hours) Vital Signs Temp Pulse Pulse Pulse Resp BP BP 06/12/18 15:11 36.5 C 65 18 104/62 06/12/18 12:00 36.9 C 69 20 105/63 06/12/18 08:11 134 H 107/71 06/12/18 08:00 66 06/12/18 07:07 36.5 C 68 18 121/65 Pulse Ox 06/12/18 15:11 97 06/12/18 12:00 97 06/12/18 08:11 06/12/18 08:00 06/12/18 07:07 96
[2018-06-12 18:00] LABS: Appearance Urine Clear (Clear); Bacteria Urine Automated 3+ (Negative); Bilirubin Urine Negative (Negative); Blood Urine Negative (Negative); Color Urine Dark Yellow; Glucose Urine UA Negative (Negative); Ketones Urine Trace (Negative); Leukocyte Esterase Urine Trace (Negative); Nitrite Urine Negative (Negative); Protein Urine Negative (Negative); RBC Urine Automated 0-4 /hpf (0-4); Specific Gravity Urine 1.027 (1.000-1.030); Urobilinogen Urine Negative (Negative)
[2018-06-12] MEDS: METOPROLOL TARTRATE 25 MG TAB PO SCH (20:31)
[2018-06-13] MEDS: PIPERACILLIN/TAZOBACTAM 3.375 GM in DEXTROSE 5% 100 ML IV SCH ×3 (04:08→20:55)
[2018-06-13 06:07] LABS: Basophils # (auto) 0.06 K/uL (0-0.2); Basophils % (auto) 0.7 %; Eosinophils # (auto) 1.08 K/uL (0-0.5); Hematocrit (blood only) 39.7 % (37-47); Hemoglobin 13.5 g/dL (12.0-16.0); Immature Granulocytes % (auto) 1.1 %; Lymphocytes # (auto) 2.28 K/uL (1.2-3.4); Lymphocytes % (auto) 25.4 %; Mean Corpuscular Volume 84.1 fL (80-100); Mean Platelet Volume 10.4 fL (7.4-10.4); Monocytes # (auto) 0.76 K/uL (0.11-0.59); Monocytes % (auto) 8.5 %; Neutrophils # (auto) 4.71 K/uL (1.4-6.5); Neutrophils % (auto) 52.3 %; Platelet Count 299 K/uL (130-400); RDW Coefficient of Variation 14.7 % (11.5-14.5); RDW Standard Deviation 45.6 fL (36.4-46.3); Red Blood Count 4.72 M/uL (4.2-5.4); White Blood Count 8.99 K/uL (4.8-10.8)
[2018-06-13] MEDS: HEPARIN SOD 5,000 UNIT/0.5 ML VIAL SQ SCH ×3 (06:08→20:56)
[2018-06-13 06:37] LABS: BUN Creatinine Ratio 32.7 (10-20); Calcium 8.6 mg/dl (8.5-10.1); Creatinine Clr Calc Pharmacy 60.2 ml/min; Est GFR (African American) 95.8; Est GFR (Non-African American) 82.7; Magnesium 2.3 mg/dl (1.8-2.4); Potassium 3.6 mmol/L (3.5-5.1)
[2018-06-13 06:45] LABS: Albumin Globulin Ratio 0.8 (0.9-2); Bilirubin,Total 0.5 mg/dl (0.2-1); Globulin 3.6 gm/dl (2.5-4.0); Total Protein 6.6 gm/dl (6.4-8.2)
[2018-06-13] MEDS ORDERED: POTASSIUM CHLORIDE 20 MEQ TABCR PO STA (07:02)
[2018-06-13] MEDS: SERTRALINE HCL 50 MG TABLET PO SCH (08:19)
[2018-06-13] MEDS: METOPROLOL TARTRATE 25 MG TAB PO SCH ×2 (08:19→20:56)
[2018-06-13] MEDS: LACTOBACILLUS ACIDOPHILUS 1 GM PACK PO SCH ×3 (08:20→18:03)
[2018-06-13] MEDS: LOSARTAN POTASSIUM 50 MG TAB PO SCH (08:20)
[2018-06-13] MEDS ORDERED: TAMSULOSIN HCL 0.4 MG CAP PO ONE (10:59)
--- NOTE | 2018-06-13 11:52 | Cardiology Progress Note ---
Date of Service June 13, 2018 Assessment & Plan (1) SVT (supraventricular tachycardia): 2 additional non sustained episodes of SVT this AM around 7:09 AM, likely before AM dose of beta ute. No symptoms. Tolerating metoprolol 12.5 mg BID. No bradycardia or pauses noted. Patient is asymptomatic (2) Hypokalemia: Potassium 3.6 this AM. Received 20 meq of potassium Goal > 4. If she is discharged on home dose chlorthalidone, recommend supplementation. Supervising Physician Co-Signing Physician Notes I personally performed a history and physical examination on the patient. Agree with Tho Chauhan PA-C's findings and plans as documented with additions as below. S: Patient denies subjective palpitations. SR in 60-70 bpm range noted at present. Exam: Awake and oriented. CV: Regular, no murmurs, no edema Data: Per my interpretaton EKG this am revealed an atrial tachycardia at 125 bpm. Low atrial focus given findings of negative Pw axis in inferior leads. Plan: continue low dose metoprolol. I do not however believe the patients brief runs of tachcycardia explain her presenting symptoms. No significant bradycardia. No indication for pacemaker at present. Subjective Patient resting in bed comfortably. She denies chest pain or unusual shortness of breath. No sense of palpitations or tachypalpitations. No dizziness, syncope or near syncope. Review of Systems Review of Systems: All systems reviewed & are unremarkable except as noted in HPI & below Physical Exam Physical Exam: General: NAD. A+Ox3. HEENT: Normocephalic. Atraumatic. PERRL. EOMI. Conjunctiva and sclera clear. NECK: No carotid bruits. No JVD. Carotid upstrokes are brisk. Heart: RRR. S1 and S2 noted without murmur, rubs, gallops. PMI non displaced. Lungs: Clear to auscultation and percussion. No wheezes, rhonchi, rales. Abdomen: Normal bowel sounds. Soft. Nontender. No masses or organomegaly. No abdominal bruits. Extremities: No edema. No clubbing or cyanosis. Pulses: radial=2/4, posterior tibial=2/4, dorsalis pedis = 2/4. NEURO: No focal deficits. PSYCH: Normal. Results & Data Vital Signs (Past 12 Hours) Vital Signs Temp Pulse Pulse Resp BP BP Pulse Ox 06/13/18 07:37 66 06/13/18 07:03 37.0 C 66 16 141/83 H 95 06/13/18 03:21 36.7 C 69 16 145/82 H 93 06/13/18 01:16 110 H Laboratory Results 06/13/18 06/13/18 06/12/18 Range/Units 05:17 05:17 17:45 WBC 8.99 (4.8-10.8) K/uL RBC 4.72 (4.2-5.4) M/uL Hgb 13.5 (12.0-16.0) g/dL Hct 39.7 (37-47) % MCV 84.1 (80-100) fL MCH 28.6 (25-34) pg MCHC 34.0 (32-36) g/dL RDW Std Deviation 45.6 (36.4-46.3) fL RDW Coeff of Ranjana 14.7 H (11.5-14.5) % Plt Count 299 (130-400) K/uL MPV 10.4 (7.4-10.4) fL Immature Gran % (Auto) 1.1 % Neut % (Auto) 52.3 % Lymph % (Auto) 25.4 % [place] % (Auto) 8.5 % Eos % (Auto) 12.0 % Baso % (Auto) 0.7 % Immature Gran # (Auto) 0.10 H (0.00-0.02) K/uL Neut # (Auto) 4.71 (1.4-6.5) K/uL Lymph # (Auto) 2.28 (1.2-3.4) K/uL [place] # (Auto) 0.76 H (0.11-0.59) K/uL Eos # (Auto) 1.08 H (0-0.5) K/uL Baso # (Auto) 0.06 (0-0.2) K/uL Sodium 139 (136-145) mmol/L Potassium 3.6 (3.5-5.1) mmol/L Chloride 109 H (98-107) mmol/L Carbon Dioxide 23 (21-32) mmol/L Anion Gap 6.0 (3-11) BUN 21 H (7-18) mg/dl Creatinine 0.65 (0.6-1.2) mg/dl Est Cr Clr Drug Dosing 60.2 ml/min Est GFR ( Amer) 95.8 Est GFR (Non-Af Amer) 82.7 BUN/Creatinine Ratio 32.7 H (10-20) Glucose 128 H (70-99) mg/dl Calcium 8.6 (8.5-10.1) mg/dl Magnesium 2.3 (1.8-2.4) mg/dl Total Bilirubin 0.5 D (0.2-1) mg/dl AST 32 (15-37) U/L ALT 45 (12-78) U/L Alkaline Phosphatase 91 (45-117) U/L Total Protein 6.6 (6.4-8.2) gm/dl Albumin 3.0 L (3.4-5.0) gm/dl Globulin 3.6 (2.5-4.0) gm/dl Albumin/Globulin Ratio 0.8 L (0.9-2) Urine Color Dark Yellow Urine Appearance Clear (Clear) Urine pH 6.0 (4.5-7.5) Ur Specific [place] 1.027 (1.000-1.030) Urine Protein Negative (Negative) Urine Glucose (UA) Negative (Negative) Urine Ketones Trace H (Negative) Urine Blood Negative (Negative) Urine Nitrite Negative (Negative) Urine Bilirubin Negative (Negative) Urine Urobilinogen Negative (Negative) Ur Leukocyte Esterase Trace H (Negative) Urine WBC (Auto) 5-10 H (0-5) /hpf Urine RBC (Auto) 0-4 (0-4) /hpf U Hyaline Cast (Auto) 1-5 (0-5) /lpf U Epithel Cells (Auto) 5-10 H (0-5) /lpf Urine Bacteria (Auto) 3+ H (Negative) Diagnostic Findings Telemetry reviewed: 2 episodes of non sustained atrial tach/SVT noted this AM lasting approx 60 seconds. Otherwise NSR without pauses or significant bradycardia.
--- NOTE | 2018-06-13 11:55 | Hospitalist Progress Note ---
Date of Service June 13, 2018 Assessment & Plan (1) Hypokalemia: This is an 82-year-old female who presents with weakness. Weakness -described as patient not being able to get up from couch for several days -unclear what is the primary cause of weakness -multiple differentials are being treated including treating hypokalemia, possible infection, and supraventricular tachycardia -patient being evaluated by PT/OT Hypokalemia -admission potassium is 3 and after potassium supplements in IV fluids, the serum potassium 3.3 on 06/12/18; oral potassium given -serum potassium is 3.6 on 06/13/18 and additional oral potassium was given Supraventricular tachycardia -2 brief episodes of narrow complex tachycardia in the range of 150 bpm in the emergency room first of which was apparently terminated with a carotid massage and second of which was treated with IV metoprolol -while on telemetry on 06/12/18 patient had a recurrent episode of narrow complex tachycardia in the range of 150 bpm at 4:51 AM and again at just about 8 AM this morning; also episode of bradycardia in the 40 bpms rang at 7:47 AM -cardiology service started patient on low dose oral metoprolol; continue monitoring on telemetry -06/13/18: Despite being started on metoprolol by cardiology service yesterday, patient had 2 minute run of tachycardia of 125 beats per minutes which is described as an accelerated junctional rhythm; have requested cardiology service to re-assess and whether any indication for pacemaker Decubitus ulcer stage III to IV on the buttock region. -started on Zosyn by admitting hospitalist on admission on since 06/11/18, will continue for now -wound care -wound culture Corynebacterium species; Quantity Moderate; No Sensitivities to Follow; Low Counts of Probable Skin [place] -follow blood culture, urine culture urinary retention -patient had straight cath because of urinary retention on 06/12/18 as per nurse -await urine culture, already on Zosyn antibiotic since 06/11/18, patient has 3+ bacteria in the urine, continue Zosyn for now -start tamsulosin send urine for urinalysis when ready History of shingles -was treated in the past 1 month Hypertension -blood pressure controlled and holding chlorthalidone -will resume home dose losartan 50 mg daily Depression -on Zoloft. Deep venous thrombosis prophylaxis -Heparin subcutaneous daughters [phone]; [phone] Subjective Patient is not in distress. Despite being started on metoprolol by cardiology service yesterday, patient had 2 minute run of tachycardia of 125 beats per minutes which is described as an accelerated junctional rhythm. Patient does not appear to have experienced palpitations. she denies chest pain. no shortness of breath. However she may be a poor historian. Patient reports that she is able to urinate on her own but as per nurse patient needed to be straight catheterized yesterday. Physical Exam Physical Exam: Constitutional: WD/WN Eyes: PERRL, conjunctivae normal, anicteric sclerae EOM intact bilaterally ENMT: external ear and nose normal, oropharynx normal Neck: trachea midline, no thyromegaly Respiratory: normal respiratory effort, lungs clear to auscultation Cardiovascular: Rate/Rhythm: regular rhythm and + bradycardic Gastrointestinal (Abdomen): normal bowel sounds, soft, nontender, no hepatosplenomegaly Musculoskeletal: Head/Neck/Chest: normocephalic and head atraumatic Neurologic: PERRL, EOMI, accommodation nl, no face palsy, no dysarthria Psychiatric: Orientation: alert and oriented x 3 Results & Data Vital Signs (Past 12 Hours) Vital Signs Temp Pulse Pulse Resp BP BP Pulse Ox 06/13/18 07:37 66 06/13/18 07:03 37.0 C 66 16 141/83 H 95 06/13/18 03:21 36.7 C 69 16 145/82 H 93 06/13/18 01:16 110 H
[2018-06-14] MEDS: PIPERACILLIN/TAZOBACTAM 3.375 GM in DEXTROSE 5% 100 ML IV SCH (04:37)
[2018-06-14] MEDS: HEPARIN SOD 5,000 UNIT/0.5 ML VIAL SQ SCH ×3 (05:37→21:02)
[2018-06-14 06:42] LABS: Creatinine Clr Calc Pharmacy 67.5 ml/min; Est GFR (African American) 99.5; Est GFR (Non-African American) 85.8
[2018-06-14] MEDS: LACTOBACILLUS ACIDOPHILUS 1 GM PACK PO SCH ×2 (07:55→11:36)
[2018-06-14] MEDS: SERTRALINE HCL 50 MG TABLET PO SCH (07:55)
[2018-06-14] MEDS: LOSARTAN POTASSIUM 50 MG TAB PO SCH (07:55)
--- NOTE | 2018-06-14 10:12 | Urology Progress Note ---
Date of Service June 14, 2018 Assessment & Plan (1) Urinary incontinence, overflow: 82yo F presented with weakness, SVT episode, decubitus, voiding dysfunction. Mixed presentation of urinary retention and incontinence. This could be a chronic finding, unclear how long pt has been dealing with this. Normal kidney function, UC&S prelim negative which is encouraging. Will begin bladder scans qSHIFT. Straight cath for PVR >400cc. If need to straight cath more than one additional time, okay to place indwelling catheter to allow for bladder rest and maximal drainage - order placed. This may also be beneficial to avoid incontinence episodes while treating decubitus. Will check a renal US to assess baseline, for upper tract damage related to overflow incontinence. Planning for discharge to rehab, working on arrangements. If catheter is ultimately placed - please maintain for 7-10days. Okay for passive voiding trial at rehab facility - if unable to void in 8 hours, replace catheter. Will arrange for close outpatient follow-up within 2 weeks, to be arranged by our office. Thank you for allowing us to participate in the acute care of Ms. Song. Please reconsult us with additional questions, concerns or changes in patient status. Subjective 82yo F with PMHx HTN, depression, resident at the [place], was admitted to [facility] on 06/11 for weakness, incontinence of bowel and bladder, found sitting on her couch for a full day without eating. Found to be in SVT at the time, with a decubitus on coccyx. We were consulted to assist in management of voiding dysfunction, concern for urinary retention. She has never previously been evaluated by our service, or any urology service. Denies any previous issues with incontinence, kidney stones, hematuria. Denies previous pelvic surgeries. I am concerned she is not the best historian however. She did require straight cath for retention on 06/12. Since then she has had episodes of urinary incontinence. Acknowledges urge to void, however sensation of incontinence, feels she "just sweating". Per nursing, she was bladder scanned for >300cc after incontinence episode. This AM she is incontinent of urine, moderate volume but states she needs to void. She has been able to ambulate to the bathroom to void. Denies dysuria, urgency/frequency. Denies suprapubic, abdominal or flank pain. Labs reviewed, creatinine within normal limits. UC&S prelim negative. No leukocytosis. Review of Systems Constitutional: no fever, no chills and no sweats Eyes: no problem reported Ear, Nose, Mouth, Throat: no tinnitus Respiratory: no dyspnea Cardiovascular: no chest pain Gastrointestinal: no abdominal pain, no nausea and no vomiting Genitourinary: no dysuria Musculoskeletal: no back pain Integumentary: no acne and no rash Neurologic: no falls and no paralysis Psychiatric: no hopelessness Endocrine: no fatigue and no polyphagia Hematologic / Lymphatic: no easy bleeding and no coagulopathy Allergy / Immunological: no lip swelling Physical Exam Constitutional: well nourished; not ill appearing Eyes: no nystagmus ENMT: Ears: + hearing impairment; no external ear abnormality Neck: trachea midline Respiratory: no respiratory distress and does not use accessory muscles Cardiovascular: Rate/Rhythm: regular rhythm Gastrointestinal (Abdomen): Inspection/Auscultation: abdomen not distended and no abdominal edema Percussion/Palpation: abdomen soft Musculoskeletal: Head/Neck/Chest: normocephalic and head atraumatic Skin: + rash and + ulcer Psychiatric: Orientation: alert and oriented x 3 Genitourinary: no CVA tenderness suprapubic pain upon palpation, slightly distended - pt states she needs to void Results & Data Vital Signs (Past 12 Hours) Vital Signs Temp Pulse Pulse Resp BP Pulse Ox 06/14/18 07:59 68 06/14/18 07:32 36.4 C L 67 18 160/75 H 98 06/14/18 03:12 36.6 C 76 22 152/81 H 97 06/14/18 02:13 65 06/13/18 23:08 36.3 C L 68 18 158/90 H 98 Laboratory Results Laboratory Results - last 48 hr 06/12/18 06/12/18 06/13/18 10:51 17:45 05:17 WBC 8.99 RBC 4.72 Hgb 13.5 Hct 39.7 MCV 84.1 MCH 28.6 MCHC 34.0 RDW Std Deviation 45.6 RDW Coeff of Ranjana 14.7 H Plt Count 299 MPV 10.4 Immature Gran % (Auto) 1.1 Neut % (Auto) 52.3 Lymph % (Auto) 25.4 Randall % (Auto) 8.5 Eos % (Auto) 12.0 Baso % (Auto) 0.7 Immature Gran # (Auto) 0.10 H Neut # (Auto) 4.71 Lymph # (Auto) 2.28 Randall # (Auto) 0.76 H Eos # (Auto) 1.08 H Baso # (Auto) 0.06 Sodium 136 Potassium 3.3 L Chloride 107 Carbon Dioxide 24 Anion Gap 5.0 BUN 27 H Creatinine 0.81 Est Cr Clr Drug Dosing 47.7 Est GFR ( Amer) 78.4 Est GFR (Non-Af Amer) 67.6 BUN/Creatinine Ratio 33.4 H Glucose 156 H Calcium 8.3 L Magnesium Total Bilirubin AST ALT Alkaline Phosphatase Troponin I 0.017 Total Protein Albumin Globulin Albumin/Globulin Ratio Urine Color Dark Yellow Urine Appearance Clear Urine pH 6.0 Ur Specific [place] 1.027 Urine Protein Negative Urine Glucose (UA) Negative Urine Ketones Trace H Urine Blood Negative Urine Nitrite Negative Urine Bilirubin Negative Urine Urobilinogen Negative Ur Leukocyte Esterase Trace H Urine WBC (Auto) 5-10 H Urine RBC (Auto) 0-4 U Hyaline Cast (Auto) 1-5 U Epithel Cells (Auto) 5-10 H Urine Bacteria (Auto) 3+ H 06/13/18 06/14/18 06/14/18 05:17 05:28 07:17 WBC RBC Hgb Hct MCV MCH MCHC RDW Std Deviation RDW Coeff of Ranjana Plt Count MPV Immature Gran % (Auto) Neut % (Auto) Lymph % (Auto) Randall % (Auto) Eos % (Auto) Baso % (Auto) Immature Gran # (Auto) Neut # (Auto) Lymph # (Auto) Randall # (Auto) Eos # (Auto) Baso # (Auto) Sodium 139 Potassium 3.6 4.1 Chloride 109 H Carbon Dioxide 23 Anion Gap 6.0 BUN 21 H Creatinine 0.65 0.58 L Est Cr Clr Drug Dosing 60.2 67.5 Est GFR ( Amer) 95.8 99.5 Est GFR (Non-Af Amer) 82.7 85.8 BUN/Creatinine Ratio 32.7 H Glucose 128 H Calcium 8.6 Magnesium 2.3 Total Bilirubin 0.5 D AST 32 ALT 45 Alkaline Phosphatase 91 Troponin I Total Protein 6.6 Albumin 3.0 L Globulin 3.6 Albumin/Globulin Ratio 0.8 L Urine Color Urine Appearance Urine pH Ur Specific [place] Urine Protein Urine Glucose (UA) Urine Ketones Urine Blood Urine Nitrite Urine Bilirubin Urine Urobilinogen Ur Leukocyte Esterase Urine WBC (Auto) Urine RBC (Auto) U Hyaline Cast (Auto) U Epithel Cells (Auto) Urine Bacteria (Auto)
--- NOTE | 2018-06-14 10:36 | Hospitalist Progress Note ---
Date of Service June 14, 2018 Assessment & Plan (1) Hypokalemia: This is an 82-year-old female who presents with weakness. Weakness -described as patient not being able to get up from couch for several days -unclear what is the primary cause of weakness -multiple differentials are being treated including treating hypokalemia, possible infection, and supraventricular tachycardia -patient being evaluated by PT/OT and evaluations suggest need for inpatient physical therapy, therapeutic case manager is coordinating post-hospital disposition Hypokalemia -admission potassium is 3 and after potassium supplements in IV fluids, the serum potassium 3.3 on 06/12/18; oral potassium given -serum potassium is 3.6 on 06/13/18 and additional oral potassium was given -06/14/18 potassium is 4.1 Supraventricular tachycardia -2 brief episodes of narrow complex tachycardia in the range of 150 bpm in the emergency room first of which was apparently terminated with a carotid massage and second of which was treated with IV metoprolol -while on telemetry on 06/12/18 patient had a recurrent episode of narrow complex tachycardia in the range of 150 bpm at 4:51 AM and again at just about 8 AM this morning; also episode of bradycardia in the 40 bpms rang at 7:47 AM -cardiology service started patient on low dose oral metoprolol; continue monitoring on telemetry -06/13/18: Despite being started on metoprolol by cardiology service yesterday, patient had 2 minute run of tachycardia of 125 beats per minutes which is tammie cribed as an accelerated junctional rhythm -06/14/18: brief run of tachycardia recorded at 4:43 AM -no need for pacemaker as per recent cardiology evaluations, continue metoprolol as heart rates generally stable and controlled Decubitus ulcer stage III to IV on the buttock region. -started on Zosyn by admitting hospitalist on admission on since 06/11/18, will continue for now -wound care -wound culture Corynebacterium species; Quantity Moderate; No Sensitivities to Follow; Low Counts of Probable Skin Gayle -by 06/14/18 the admission blood culture has returned as no growth and no bacteria for urinary tract infection was identified so Zosyn is stopped urinary retention -patient had straight cath because of urinary retention on 06/12/18 as per nurse and urine analysis was sent -started on tamsulosin on 06/13/18 as urinary retention continued -by 06/14/18 the admission blood culture has returned as no growth and no bacteria for urinary tract infection was identified so Zosyn is stopped -urology consulted on 06/14/18 in case of continued urinary retention but patient nurse reported recent urinary incontinence History of shingles -was treated in the past 1 month Hypertension -continue home dose losartan 50 mg daily -will avoid home medication chlorthalidone 25mg daily to avoid hypokalemia; will initiate amlodipine 10 mg daily as substitute Depression -on Zoloft. Deep venous thrombosis prophylaxis -Heparin subcutaneous daughters [phone]; [phone] Subjective Nurse report that patient recently incontinent with the urination. When physician and nurse turned patient over to look at buttock ulcer, patient had defecated on the without knowing that she made bowel movement. Patient thought she was sweating. Patient denies acute pain. no vomiting. no chest pain. no shortness of breath. no lightheadedness Physical Exam Constitutional: WD/WN, vitals as above Eyes: PERRL, conjunctivae normal, anicteric sclerae EOM intact bilaterally ENMT: external ear and nose normal, oropharynx normal Neck: trachea midline, no thyromegaly Respiratory: normal respiratory effort, lungs clear to auscultation Cardiovascular: Rate/Rhythm: regular rhythm and + bradycardic Gastrointestinal (Abdomen): normal bowel sounds, soft, nontender, no hepatosplenomegaly Musculoskeletal: Head/Neck/Chest: normocephalic and head atraumatic Neurologic: PERRL, EOMI, accommodation nl, no face palsy, no dysarthria Psychiatric: Orientation: alert and cooperative Results & Data Vital Signs (Past 12 Hours) Vital Signs Temp Pulse Pulse Resp BP Pulse Ox 06/14/18 07:59 68 06/14/18 07:32 36.4 C L 67 18 160/75 H 98 06/14/18 03:12 36.6 C 76 22 152/81 H 97 06/14/18 02:13 65 06/13/18 23:08 36.3 C L 68 18 158/90 H 98
[2018-06-14] MEDS: AMLODIPINE BESYLATE 5 MG TAB PO SCH (11:35)
--- NOTE | 2018-06-14 11:35 | Cardiology Progress Note ---
Date of Service June 14, 2018 Assessment & Plan (1) SVT (supraventricular tachycardia): 1 non sustained episode of atrial tach/SVT occuring around 4 AM. No symptoms. No bradycardia or pauses noted on low-dose beta-ute. For ease of medication compliance will transition to metoprolol succinate 25 mg daily. Patient is asymptomatic No further cardiac testing warranted. Stable from cardiac perspective. Will sign off. Please notify on-call professional security officer with additional questions or concerns. (2) Hypokalemia: Potassium improved. Goal > 4. If she is discharged on home dose chlorthalidone, recommend supplementation or close monitoring of potassium levels as an outpatient.. Supervising Physician Co-Signing Physician Notes Supervising Physician Attestation: I have personally performed a history and physical examination on the patient. I agree with the physician janitorial assistant's findings and plan as documented with the following additions. Subjective: Patient without any cardiac complaints. Denies palpitations. Exam: Regular rhythm, no murmurs, no edema Data: Telemetry reveals a short salvos of narrow complex tachycardia, likely atrial tachycardia Assessment and Plan: Atrial tachycardia, continue beta-ute, patient to transition to Toprol 25 mg daily. DVT prophylaxis: Continue subcu heparin -Patient stable for transfer to rehab from cardiac perspective. Alverto Mccoy, DO Subjective Patient resting comfortably in bed this morning. She offers no acute complaints. She has no sensation of palpitations or tachypalpitations. No dizziness, syncope or near syncope. No recent chest pain or unusual shortness of breath. Telemetry reviewed which demonstrated normal sinus rhythm without significant bradycardia or pauses. She had one nonsustained episode of atrial tachycardia/SVT around 4 AM. Review of Systems Review of Systems: All systems reviewed & are unremarkable except as noted in HPI & below Physical Exam Constitutional: WD/WN, vitals as above + obese Eyes: PERRL, conjunctivae normal, anicteric sclerae Neck: trachea midline, no thyromegaly Respiratory: normal respiratory effort, lungs clear to auscultation Cardiovascular: Rate/Rhythm: regular rate and regular rhythm Heart Sounds: normal S1 and normal S2; no murmur Gastrointestinal (Abdomen): normal bowel sounds, soft, nontender, no hepatosplenomegaly Musculoskeletal: no cyanosis or clubbing, extremities motor strength 5/5 Neurologic: PERRL, EOMI, accommodation nl, no face palsy, no dysarthria Results & Data Vital Signs (Past 12 Hours) Vital Signs Temp Pulse Pulse Resp BP Pulse Ox 06/14/18 07:59 68 06/14/18 07:32 36.4 C L 67 18 160/75 H 98 06/14/18 03:12 36.6 C 76 22 152/81 H 97 06/14/18 02:13 65
[2018-06-14] MEDS: METOPROLOL SUCC 25MG EXT REL TAB PO SCH (11:36)
--- NOTE | 2018-06-14 14:41 | Ultrasound Report ---
US renal/blad retro comp HISTORY: Incontinence overflow incontinence, r/o upper tract damage COMPARISON: None. FINDINGS: Right kidney: Maximum dimension 10.8 cm. No evidence for hydronephrosis. Normal corticomedullary diff erentiation and cortical thickness. Left kidney: Maximum dimension 10.2 cm. No evidence for hydronephrosis. Normal corticomedullary diff erentiation and cortical thickness. Bladder: No bladder wall thickening. The bilateral ureteral jets were identified. IMPRESSION: Normal renal ultrasound. The above report was generated using voice recognition software. It may contain grammatical, syntax or spelling errors. Electronically signed by: Sanjay Abrams M.D. 06/14/2018 2:40 PM
[2018-06-14] MEDS: METOPROLOL TARTRATE 25 MG TAB PO SCH (20:54)
[2018-06-14] MEDS: TAMSULOSIN HCL 0.4 MG CAP PO SCH (21:01)
[2018-06-14] MEDS ORDERED: MICONAZOLE NITRATE POWDER 43 GM EXT PRN (21:08)
[2018-06-15] MEDS: HEPARIN SOD 5,000 UNIT/0.5 ML VIAL SQ SCH ×3 (05:51→20:48)
[2018-06-15] MEDS: AMLODIPINE BESYLATE 5 MG TAB PO SCH (07:20)
[2018-06-15] MEDS: LOSARTAN POTASSIUM 50 MG TAB PO SCH (07:20)
[2018-06-15] MEDS: METOPROLOL SUCC 25MG EXT REL TAB PO SCH (07:20)
[2018-06-15] MEDS: SERTRALINE HCL 50 MG TABLET PO SCH (07:20)
[2018-06-15 09:24] LABS: BUN Creatinine Ratio 11.7 (10-20); Calcium 8.7 mg/dl (8.5-10.1); Creatinine Clr Calc Pharmacy 54.8 ml/min; Est GFR (African American) 90.4
[2018-06-15 09:50] LABS: Folate (Folic Acid) 6.44 ng/ml (>5.38)
--- NOTE | 2018-06-15 12:33 | Hospitalist Progress Note ---
Date of Service June 15, 2018 Assessment & Plan (1) Hypokalemia: This is an 82-year-old female who presents with weakness. Weakness -described as patient not being able to get up from couch for several days -unclear what is the primary cause of weakness -multiple differentials are being treated including treating hypokalemia, possible infection, and supraventricular tachycardia -normal B12 and folic acid levels, normal TSH, RPR pending -patient being evaluated by PT/OT and evaluations suggest need for inpatient physical therapy, porter sample case is coordinating post-hospital disposition Hypokalemia likely from history of diuretic use of HCTZ -admission potassium is 3 and after potassium supplements in IV fluids, the serum potassium 3.3 on 06/12/18; oral potassium given -serum potassium is 3.6 on 06/13/18 and additional oral potassium was given -06/14/18 serum potassium is 4.1 -06/15/18 serum potassium is 4 Supraventricular tachycardia -2 brief episodes of narrow complex tachycardia in the range of 150 bpm in the emergency room first of which was apparently terminated with a carotid massage and second of which was treated with IV metoprolol -while on telemetry on 06/12/18 patient had a recurrent episode of narrow complex tachycardia in the range of 150 bpm at 4:51 AM and again at just about 8 AM this morning; also episode of bradycardia in the 40 bpms rang at 7:47 AM -cardiology service started patient on low dose oral metoprolol; continue monitoring on telemetry -06/13/18: Despite being started on metoprolol by cardiology service yesterday, patient had 2 minute run of tachycardia of 125 beats per minutes which is described as an accelerated junctional rhythm -06/14/18: brief run of tachycardia recorded at 4:43 AM -no need for pacemaker as per recent cardiology evaluations, continue metoprolol as heart rates generally stable and controlled Decubitus ulcer stage III to IV on the buttock region. -started on Zosyn by admitting hospitalist on admission on since 06/11/18, will continue for now -wound care -wound culture Corynebacterium species; Quantity Moderate; No Sensitivities to Follow; Low Counts of Probable Skin Gayle -by 06/14/18 the admission blood culture has returned as no growth and no bacteria for urinary tract infection was identified so Zosyn is stopped urinary retention -patient had straight cath because of urinary retention on 06/12/18 as per nurse and urine analysis was sent -started on tamsulosin on 06/13/18 as urinary retention continued -by 06/14/18 the admission blood culture has returned as no growth and no bacteria for urinary tract infection was identified so Zosyn is stopped -urology consulted on 06/14/18 in case of continued urinary retention but patient nurse reported recent urinary incontinence History of shingles -was treated in the past 1 month Hypertension -continue home dose losartan 50 mg daily -will avoid home medication chlorthalidone 25mg daily to avoid hypokalemia; will continue amlodipine 10 mg daily as initiated on this hospital admission as substitute Depression -on Zoloft. Deep venous thrombosis prophylaxis -Heparin subcutaneous daughters [phone]; [phone] Subjective Patient sitting up in chair. eating the food. no vomiting. patient appears to have been able to urinate without barbosa. patient denies acute pain. no headache or lightheadedness. she appears to be responding to questions appropriately Physical Exam Constitutional: WD/WN, vitals as above Eyes: PERRL, conjunctivae normal, anicteric sclerae EOM intact bilaterally ENMT: external ear and nose normal, oropharynx normal Neck: trachea midline, no thyromegaly Respiratory: normal respiratory effort, lungs clear to auscultation Cardiovascular: Rate/Rhythm: regular rhythm and + bradycardic Gastrointestinal (Abdomen): normal bowel sounds, soft, nontender, no hepatosplenomegaly Musculoskeletal: Head/Neck/Chest: normocephalic and head atraumatic Neurologic: PERRL, EOMI, accommodation nl, no face palsy, no dysarthria Psychiatric: Orientation: alert and cooperative Results & Data Vital Signs (Past 12 Hours) Vital Signs Temp Pulse Resp BP Pulse Ox 06/15/18 08:00 36.6 C 67 18 135/80 97
[2018-06-15] MEDS: TAMSULOSIN HCL 0.4 MG CAP PO SCH (20:48)
[2018-06-16] MEDS: HEPARIN SOD 5,000 UNIT/0.5 ML VIAL SQ SCH ×3 (05:29→21:11)
[2018-06-16] MEDS: LOSARTAN POTASSIUM 50 MG TAB PO SCH (07:50)
[2018-06-16] MEDS: METOPROLOL SUCC 25MG EXT REL TAB PO SCH (07:50)
[2018-06-16] MEDS: SERTRALINE HCL 50 MG TABLET PO SCH (07:50)
[2018-06-16] MEDS: AMLODIPINE BESYLATE 5 MG TAB PO SCH (07:50)
--- NOTE | 2018-06-16 13:42 | Hospitalist Progress Note ---
Date of Service June 16, 2018 Assessment & Plan (1) Hypokalemia: This is an 82-year-old female who presents with weakness. Weakness -described as patient not being able to get up from couch for several days -unclear what is the primary cause of weakness -multiple differentials are being treated including treating hypokalemia, possible infection, and supraventricular tachycardia -normal B12 and folic acid levels, normal TSH, RPR pending -patient being evaluated by PT/OT and evaluations suggest need for inpatient physical therapy, business case analyst is coordinating post-hospital disposition Hypokalemia likely from history of diuretic use of HCTZ -admission potassium is 3 and after potassium supplements in IV fluids, the serum potassium 3.3 on 06/12/18; oral potassium given -serum potassium is 3.6 on 06/13/18 and additional oral potassium was given -06/14/18 serum potassium is 4.1 -06/15/18 serum potassium is 4 Supraventricular tachycardia -2 brief episodes of narrow complex tachycardia in the range of 150 bpm in the emergency room first of which was apparently terminated with a carotid massage and second of which was treated with IV metoprolol -while on telemetry on 06/12/18 patient had a recurrent episode of narrow complex tachycardia in the range of 150 bpm at 4:51 AM and again at just about 8 AM this morning; also episode of bradycardia in the 40 bpms rang at 7:47 AM -cardiology service started patient on low dose oral metoprolol; continue monitoring on telemetry -06/13/18: Despite being started on metoprolol by cardiology service yesterday, patient had 2 minute run of tachycardia of 125 beats per minutes which is described as an accelerated junctional rhythm -06/14/18: brief run of tachycardia recorded at 4:43 AM -no need for pacemaker as per recent cardiology evaluations, continue metoprolol as heart rates generally stable and controlled Decubitus ulcer stage III to IV on the buttock region. -started on Zosyn by admitting hospitalist on admission on since 06/11/18, will continue for now -wound care -wound culture Corynebacterium species; Quantity Moderate; No Sensitivities to Follow; Low Counts of Probable Skin Gayle -by 06/14/18 the admission blood culture has returned as no growth and no bacteria for urinary tract infection was identified so Zosyn is stopped -buttock ulcers healing urinary retention -patient had straight cath because of urinary retention on 06/12/18 as per nurse and urine analysis was sent -started on tamsulosin on 06/13/18 as urinary retention continued -by 06/14/18 the admission blood culture has returned as no growth and no bacteria for urinary tract infection was identified so Zosyn is stopped -urology consulted on 06/14/18 in case of continued urinary retention but patient nurse reported recent urinary incontinence -since 06/14/18 it would appear that the urinary retention has resolved and patient should continue tamsulosin History of shingles -was treated in the past 1 month Hypertension -continue home dose losartan 50 mg daily -will avoid home medication chlorthalidone 25mg daily to avoid hypokalemia; will continue amlodipine 10 mg daily as initiated on this hospital admission as substitute Depression -on Zoloft. Deep venous thrombosis prophylaxis -Heparin subcutaneous daughters [phone]; [phone] Subjective patient denies pain. she reports she is urinating. she has difficulty getting up from the chair on her own and needed support of the nurse and physician to stand up. patient denies dizziness. denies chest pain or shortness of breath. no vomiting. Physical Exam Constitutional: WD/WN, vitals as above Eyes: PERRL, conjunctivae normal, anicteric sclerae EOM intact bilaterally ENMT: external ear and nose normal, oropharynx normal Neck: trachea midline, no thyromegaly Respiratory: normal respiratory effort, lungs clear to auscultation Cardiovascular: Rate/Rhythm: regular rhythm and + bradycardic Gastrointestinal (Abdomen): normal bowel sounds, soft, nontender, no hepatosplenomegaly Musculoskeletal: Head/Neck/Chest: normocephalic and head atraumatic Skin: buttock ulcers healing Neurologic: PERRL, EOMI, accommodation nl, no face palsy, no dysarthria Psychiatric: Orientation: alert and cooperative Results & Data Vital Signs (Past 12 Hours) Vital Signs Temp Pulse Resp BP Pulse Ox 06/16/18 09:08 36.9 C 66 16 104/66 96 06/16/18 08:16 36.6 C 71 19 145/74 H 98
[2018-06-16] MEDS: TAMSULOSIN HCL 0.4 MG CAP PO SCH (21:12)
[2018-06-17] MEDS: HEPARIN SOD 5,000 UNIT/0.5 ML VIAL SQ SCH ×3 (05:50→21:32)
[2018-06-17] MEDS: LOSARTAN POTASSIUM 50 MG TAB PO SCH (08:36)
[2018-06-17] MEDS: METOPROLOL SUCC 25MG EXT REL TAB PO SCH (08:36)
[2018-06-17] MEDS: SERTRALINE HCL 50 MG TABLET PO SCH (08:36)
[2018-06-17] MEDS: AMLODIPINE BESYLATE 5 MG TAB PO SCH (08:36)
--- NOTE | 2018-06-17 17:19 | Hospitalist Progress Note ---
Date of Service June 17, 2018 Assessment & Plan (1) Hypokalemia: This is an 82-year-old female who presents with weakness. Weakness -described as patient not being able to get up from couch for several days -unclear what is the primary cause of weakness -multiple differentials are being treated including treating hypokalemia, possible infection, and supraventricular tachycardia -normal B12 and folic acid levels, normal TSH, RPR pending -patient being evaluated by PT/OT and evaluations suggest need for inpatient physical therapy, correctional counselor/case manager is coordinating post-hospital disposition Hypokalemia likely from history of diuretic use of HCTZ -admission potassium is 3 and after potassium supplements in IV fluids, the serum potassium 3.3 on 06/12/18; oral potassium given -serum potassium is 3.6 on 06/13/18 and additional oral potassium was given -06/14/18 serum potassium is 4.1 -06/15/18 serum potassium is 4 Supraventricular tachycardia -2 brief episodes of narrow complex tachycardia in the range of 150 bpm in the emergency room first of which was apparently terminated with a carotid massage and second of which was treated with IV metoprolol -while on telemetry on 06/12/18 patient had a recurrent episode of narrow complex tachycardia in the range of 150 bpm at 4:51 AM and again at just about 8 AM this morning; also episode of bradycardia in the 40 bpms rang at 7:47 AM -cardiology service started patient on low dose oral metoprolol; continue monitoring on telemetry -06/13/18: Despite being started on metoprolol by cardiology service yesterday, patient had 2 minute run of tachycardia of 125 beats per minutes which is described as an accelerated junctional rhythm -06/14/18: brief run of tachycardia recorded at 4:43 AM -no need for pacemaker as per recent cardiology evaluations, continue metoprolol as heart rates generally stable and controlled Decubitus ulcer stage II to III on the buttock region. -started on Zosyn by admitting hospitalist on admission on since 06/11/18, will continue for now -wound care -wound culture Corynebacterium species; Quantity Moderate; No Sensitivities to Follow; Low Counts of Probable Skin Gayle -by 06/14/18 the admission blood culture has returned as no growth and no bacteria for urinary tract infection was identified so Zosyn is stopped -buttock ulcers healing urinary retention -patient had straight cath because of urinary retention on 06/12/18 as per nurse and urine analysis was sent -started on tamsulosin on 06/13/18 as urinary retention continued -by 06/14/18 the admission blood culture has returned as no growth and no bacteria for urinary tract infection was identified so Zosyn is stopped -urology consulted on 06/14/18 in case of continued urinary retention but patient nurse reported recent urinary incontinence -since 06/14/18 it would appear that the urinary retention has resolved and patient should continue tamsulosin History of shingles -was treated in the past 1 month Hypertension -continue home dose losartan 50 mg daily -will avoid home medication chlorthalidone 25mg daily to avoid hypokalemia; will continue amlodipine 10 mg daily as initiated on this hospital admission as substitute Depression -on Zoloft. Deep venous thrombosis prophylaxis -Heparin subcutaneous daughters [phone]; [phone] Subjective Patient denies acute pain. mentating well. as per physical therapy notes, patient appears to be making progress with rolling walker but tires easily. Patient denies lightheadedness. no chest pain. no shortness of breath. no abdomen pain. no vomiting. Physical Exam Constitutional: WD/WN, vitals as above Eyes: PERRL, conjunctivae normal, anicteric sclerae EOM intact bilaterally ENMT: external ear and nose normal, oropharynx normal Neck: trachea midline, no thyromegaly Respiratory: normal respiratory effort, lungs clear to auscultation Cardiovascular: Rate/Rhythm: regular rhythm and + bradycardic Gastrointestinal (Abdomen): normal bowel sounds, soft, nontender, no hepatosplenomegaly Musculoskeletal: Head/Neck/Chest: normocephalic and head atraumatic Neurologic: PERRL, EOMI, accommodation nl, no face palsy, no dysarthria Psychiatric: Orientation: alert and cooperative Results & Data Vital Signs (Past 12 Hours) Vital Signs Temp Pulse Resp BP BP Pulse Ox 06/17/18 15:00 36.6 C 62 18 97/63 L 96 06/17/18 07:18 36.9 C 77 127/72 95
[2018-06-17] MEDS: TAMSULOSIN HCL 0.4 MG CAP PO SCH (21:31)
[2018-06-18] MEDS: HEPARIN SOD 5,000 UNIT/0.5 ML VIAL SQ SCH ×2 (06:13→14:25)
[2018-06-18] MEDS: AMLODIPINE BESYLATE 5 MG TAB PO SCH (07:34)
[2018-06-18] MEDS: LOSARTAN POTASSIUM 50 MG TAB PO SCH (07:34)
[2018-06-18] MEDS: METOPROLOL SUCC 25MG EXT REL TAB PO SCH (07:34)
[2018-06-18] MEDS: SERTRALINE HCL 50 MG TABLET PO SCH (07:34)
--- NOTE | 2018-06-18 11:04 | Hospitalist Progress Note ---
Date of Service June 18, 2018 Assessment & Plan (1) Hypokalemia: This is an 82-year-old female who presents with weakness. Weakness -described as patient not being able to get up from couch for several days -unclear what is the primary cause of weakness -multiple differentials are being treated including treating hypokalemia, possible infection, and supraventricular tachycardia -normal B12 and folic acid levels, normal TSH, RPR pending -patient being evaluated by PT/OT and evaluations suggest need for inpatient physical therapy, nurse case manager is coordinating post-hospital disposition Hypokalemia likely from history of diuretic use of HCTZ -admission potassium is 3 and after potassium supplements in IV fluids, the serum potassium 3.3 on 06/12/18; oral potassium given -serum potassium is 3.6 on 06/13/18 and additional oral potassium was given -06/14/18 serum potassium is 4.1 -06/15/18 serum potassium is 4 Supraventricular tachycardia -2 brief episodes of narrow complex tachycardia in the range of 150 bpm in the emergency room first of which was apparently terminated with a carotid massage and second of which was treated with IV metoprolol -while on telemetry on 06/12/18 patient had a recurrent episode of narrow complex tachycardia in the range of 150 bpm at 4:51 AM and again at just about 8 AM this morning; also episode of bradycardia in the 40 bpms rang at 7:47 AM -cardiology service started patient on low dose oral metoprolol; continue monitoring on telemetry -06/13/18: Despite being started on metoprolol by cardiology service yesterday, patient had 2 minute run of tachycardia of 125 beats per minutes which is described as an accelerated junctional rhythm -06/14/18: brief run of tachycardia recorded at 4:43 AM -no need for pacemaker as per recent cardiology evaluations, continue metoprolol as heart rates generally stable as sinus rhythm and heart rate is controlled Decubitus ulcer stage II to III on the buttock region. -started on Zosyn by admitting hospitalist on admission on since 06/11/18, will continue for now -wound care with miconazole. Patient should have miconazole (Desenex) applied to buttocks daily for the next 10 days -wound culture: Corynebacterium species; Quantity Moderate; No Sensitivities to Follow; Low Counts of Probable Skin Gayle -by 06/14/18 the admission blood culture has returned as no growth and no bacteria for urinary tract infection was identified so Zosyn is stopped -buttock ulcers healing urinary retention -patient had straight cath because of urinary retention on 06/12/18 as per nurse and urine analysis was sent -started on tamsulosin on 06/13/18 as urinary retention continued -by 06/14/18 the admission blood culture has returned as no growth and no bacteria for urinary tract infection was identified so Zosyn is stopped -urology consulted on 06/14/18 in case of continued urinary retention but patient nurse reported recent urinary incontinence -since 06/14/18 it would appear that the urinary retention has resolved and patient should continue tamsulosin History of shingles -was treated in the past 1 month Hypertension -continue home dose losartan 50 mg daily -will avoid home medication chlorthalidone 25mg daily to avoid hypokalemia; will continue amlodipine 10 mg daily as initiated on this hospital admission as substitute Depression -on Zoloft. Deep venous thrombosis prophylaxis -Heparin subcutaneous daughters [phone]; [phone] Discharge Diagnosis Weakness, Supraventricular tachycardia (intermittent, and heart rate and rhythm is now controlled), pressure injury of sacral region stage 3 (in better stages of healing), Hypertension, Hypokalemia (treated), Urinary retention (resolved) Disposition: patient is to be discharge to [facility] on 06/18/[facility] for physical rehabilitation. Patient should avoid chlorathalidone. Patient should take amlodipine 10 mg daily instead with the losartan 50 mg daily Patient should take metoprolol succinate 25 mg daily Patient should take tamsulosin daily Patient should have miconazole (Desenex) applied to buttocks daily for the next 10 days Subjective Patient seen and examined in the room with occupational therapy. Patient denies abdomen pain. no chest pain. no shortness of breath. no vomiting. she reports she has been able to use the bathroom Physical Exam Constitutional: WD/WN, vitals as above Eyes: PERRL, conjunctivae normal, anicteric sclerae EOM intact bilaterally ENMT: external ear and nose normal, oropharynx normal Neck: trachea midline, no thyromegaly normal visual inspection Respiratory: normal respiratory effort, lungs clear to auscultation Cardiovascular: RRR, no murmur, no edema Gastrointestinal (Abdomen): normal bowel sounds, soft, nontender, no hepatosplenomegaly Musculoskeletal: Head/Neck/Chest: normocephalic and head atraumatic Skin: + ulcer (buttock ulcers in stages of healing) Neurologic: PERRL, EOMI, accommodation nl, no face palsy, no dysarthria CN's II-XI intact bilaterally Psychiatric: A+Ox3, euthymic affect Results & Data Vital Signs (Past 12 Hours) Vital Signs Temp Pulse Resp BP Pulse Ox 06/18/18 08:08 36.2 C L 71 20 124/70 98 06/17/18 23:36 36.4 C L 66 20 135/68 97
--- NOTE | 2018-06-18 11:20 | Discharge Summary ---
Date of Service June 18, 2018 Admission HPI Per Admitting Provider DATE OF ADMISSION: 06/11/2018 CHIEF COMPLAINT: Weakness. HISTORY OF PRESENT ILLNESS: This is an 82-year-old female with past medical history significant for hypertension, depression, recent diagnosis of shingles on her back about a month ago, finished prednisone and gabapentin, who lives at [facility]. She walks with a walker. Daughter helps her going out and getting food. On Sunday she went out to eat food and came back and sat on the couch and she is did not feel like getting up and she sat on the couch for whole until today. She did not feel like calling anyone. She did not eat anything. She did not take any medications. She wetted herself with bowel and bladder movements and today she decided to call her daughter and the daughter came and checked her and and cleaned her and brought the patinet to the ER. In the ER her labs showed hypokalemia. Vitals were stable, white count of 12, rest of the labs were okay. The patient went into SVT in the ER and the ER physician did a carotid massage which broke it, but later when I saw her, again she was in SVT ried carotid massage but was still in SVT.Given a dose of IV Lopressor, which brought her back to sinus rhythm. The patient also had decubitus ulcers in the coccyx region. Daughter said that they are there for 1 month. The patient denies any headache. No blurred visions. No earache. No runny nose, no sore throat, no difficulty swallowing. Denies any chest pain, no shortness of breath, no cough, no fever, no chills, no nausea, no vomiting, no abdominal pain and no swelling in the legs or rash. Currently resting comfortably and hemodynamically stable. ALLERGIES: No known drug allergies. PAST MEDICAL HISTORY: As mentioned above. PAST SURGICAL HISTORY: She had a right hip surgery. MEDICATIONS: The patient is on chlorthalidone 25 mg seems to be taken daily, losartan 50 mg daily, Zoloft 50 and 20 mg tablets daily, Crestor taking daily. Daughter says she is not taking her medications as was supposed to take them FAMILY HISTORY: Noncontributory. SOCIAL HISTORY: She states quit smoking about 2 years ago. Prior to that smoked on and off for a long time about pack a day. Alcohol occasional. Lives at the [facility]. REVIEW OF SYMPTOMS: As per HPI. Rest of review of systems negative. Admission Exam Per Admitting Provider PHYSICAL EXAMINATION: GENERAL: The patient is of moderate build, not in acute distress. VITAL SIGNS: Temperature 36.8, pulse 84, respiratory rate 18, blood pressure 131/74, oxygen 97% on room air. HEENT: No pallor, no icterus. Pupils equal, round, and reactive to light. NECK: No JVD, no neck masses, no carotid bruits. CARDIOVASCULAR: S1, S2 heard, regular rate and rhythm, no murmur, no gallop. RESPIRATORY SYSTEM: Normal effort. No accessory muscle use. No wheezing, no crackles. ABDOMEN: Soft, bowel sounds present. Nontender. No distention. CENTRAL NERVOUS SYSTEM: Cranial nerves II-XII grossly intact. Nonfocal. EXTREMITIES: No edema, no erythema. Skin Stage 3-4 decubitus ulcers in coccyx region Principal Diagnosis Weakness, Supraventricular tachycardia (intermittent, and heart rate and rhythm is now controlled), pressure injury of sacral region stage 3 (in better stages of healing), Hypertension, Hypokalemia (treated), Urinary retention (resolved) Discharge Exam Constitutional WD/WN, vitals as above Eyes PERRL, conjunctivae normal, anicteric sclerae EOM intact bilaterally ENMT external ear and nose normal, oropharynx normal Neck trachea midline, no thyromegaly normal visual inspection Respiratory normal respiratory effort, lungs clear to auscultation Cardiovascular RRR, no murmur, no edema Gastrointestinal (Abdomen) normal bowel sounds, soft, nontender, no hepatosplenomegaly Musculoskeletal Head/Neck/Chest: normocephalic and head atraumatic Skin + ulcer (buttock ulcers in stages of healing) Neurologic PERRL, EOMI, accommodation nl, no face palsy, no dysarthria CN's II-XI intact bilaterally Psychiatric A+Ox3, euthymic affect Orientation: alert and cooperative Discharge Data Allergies Allergy/AdvReac Type Severity Reaction Status Date / Time No Known Allergies Allergy Verified 06/11/18 21:05 Consultations 06/11/18 20:38 ED Decision to Admit Stat 06/11/18 22:43 Consult Case Management - Discharge Planning Routine 06/12/18 08:00 Consult Cardiology Routine 06/14/18 07:45 Consult Urology Routine Ordered Studies 06/14/18 10:00 US renal/blad retro comp Routine Hospital Course (1) Hypokalemia: This is an 82-year-old female who presents with weakness. Weakness -described as patient not being able to get up from couch for several days -unclear what is the primary cause of weakness -multiple differentials are being treated including treating hypokalemia, possible infection, and supraventricular tachycardia -normal B12 and folic acid levels, normal TSH, RPR pending -patient being evaluated by PT/OT and evaluations suggest need for inpatient physical therapy, oil field caser is coordinating post-hospital disposition Hypokalemia likely from history of diuretic use of HCTZ -admission potassium is 3 and after potassium supplements in IV fluids, the serum potassium 3.3 on 06/12/18; oral potassium given -serum potassium is 3.6 on 06/13/18 and additional oral potassium was given -06/14/18 serum potassium is 4.1 -06/15/18 serum potassium is 4 Supraventricular tachycardia -2 brief episodes of narrow complex tachycardia in the range of 150 bpm in the emergency room first of which was apparently terminated with a carotid massage and second of which was treated with IV metoprolol -while on telemetry on 06/12/18 patient had a recurrent episode of narrow complex tachycardia in the range of 150 bpm at 4:51 AM and again at just about 8 AM this morning; also episode of bradycardia in the 40 bpms rang at 7:47 AM -cardiology service started patient on low dose oral metoprolol; continue monitoring on telemetry -06/13/18: Despite being started on metoprolol by cardiology service yesterday, patient had 2 minute run of tachycardia of 125 beats per minutes which is described as an accelerated junctional rhythm -06/14/18: brief run of tachycardia recorded at 4:43 AM -no need for pacemaker as per recent cardiology evaluations, continue metoprolol as heart rates generally stable as sinus rhythm and heart rate is controlled Decubitus ulcer stage II to III on the buttock region. -started on Zosyn by admitting hospitalist on admission on since 06/11/18, will continue for now -wound care with miconazole. Patient should have miconazole (Desenex) applied to buttocks daily for the next 10 days -wound culture: Corynebacterium species; Quantity Moderate; No Sensitivities to Follow; Low Counts of Probable Skin Gayle -by 06/14/18 the admission blood culture has returned as no growth and no bacteria for urinary tract infection was identified so Zosyn is stopped -buttock ulcers healing urinary retention -patient had straight cath because of urinary retention on 06/12/18 as per nurse and urine analysis was sent -started on tamsulosin on 06/13/18 as urinary retention continued -by 06/14/18 the admission blood culture has returned as no growth and no bacteria for urinary tract infection was identified so Zosyn is stopped -urology consulted on 06/14/18 in case of continued urinary retention but patient nurse reported recent urinary incontinence -since 06/14/18 it would appear that the urinary retention has resolved and patient should continue tamsulosin History of shingles -was treated in the past 1 month Hypertension -continue home dose losartan 50 mg daily -will avoid home medication chlorthalidone 25mg daily to avoid hypokalemia; will continue amlodipine 10 mg daily as initiated on this hospital admission as substitute Depression -on Zoloft. Deep venous thrombosis prophylaxis -Heparin subcutaneous daughters [phone]; [phone] Discharge Diagnosis Weakness, Supraventricular tachycardia (intermittent, and heart rate and rhythm is now controlled), pressure injury of sacral region stage 3 (in better stages of healing), Hypertension, Hypokalemia (treated), Urinary retention (resolved) Disposition: patient is to be discharge to [facility] on 06/18/18 for physical rehabilitation. Patient should avoid chlorathalidone. Patient should take amlodipine 10 mg daily instead with the losartan 50 mg daily Patient should take metoprolol succinate 25 mg daily Patient should take tamsulosin daily Patient should have miconazole (Desenex) applied to buttocks daily for the next 10 days Total Time Total Time Spent Total Time Spent (In Minutes): 40 minute Total Time Includes: Examination of the Patient, Discharge Planning, Medication Reconciliation and Communication With Other Providers Discharge Plan Discharge Items Patient Disposition: Transfer [facility] Reason For Visit: WEAKNESS Discharge Diagnosis: Weakness, Supraventricular tachycardia, pressure injury of sacral region stage 3, Hypertension, Urinary retention (resolved), Hypokalemia (treated) Condition: Good Discharge Goals: Improve function Activity: Resume your previous activity Non-emergency contact: Primary Care Provider Call non-emergency contact if: you have any medication questions Follow-up/Referrals: RHONDA, [Primary Care Provider] - Diet: Regular Addtl Provider Instructions: Disposition: patient is to be discharge to [facility] on 06/18/18 for physical rehabilitation. Patient should avoid chlorathalidone. Patient should take amlodipine 10 mg daily instead with the losartan 50 mg daily Patient should take metoprolol succinate 25 mg daily Patient should take tamsulosin daily Patient should have miconazole (Desenex) applied to buttocks daily for the next 10 days Prescriptions: New amlodipine [Norvasc] 5 mg Tablet 10 mg PO QAM 30 Days Qty: 60 RF: 0 tamsulosin 0.4 mg Capsule 0.4 mg PO HS 30 Days Qty: 30 RF: 0 metoprolol succinate 25 mg Tablet Extended Release 24 Hr 25 mg PO QAM 30 Days Qty: 30 RF: 0 Desenex 2 % Powder 1 appful/day EXT DAILY 10 Days Qty: 1 RF: 0 Continued losartan 50 mg Tablet 50 mg PO DIRECTED RF: 0 sertraline [Zoloft] 50 mg Tablet 50 mg PO DIRECTED RF: 0 Discontinued prednisone 20 mg Tablet 20 mg PO DIRECTED RF: 0 chlorthalidone 25 mg Tablet 25 mg PO DIRECTED RF: 0 gabapentin 300 mg Capsule 300 mg PO DIRECTED RF: 0 sertraline [Zoloft] 25 mg Tablet 25 mg PO DIRECTED RF: 0 Stand-Alone Forms: [facility] Discharge Orders: Discharge Order (Routine); Ordered 06/18/18 Ordered By: Harsha Rogers Skilled Items Patient informed of condition?: Yes DNR: No Discharge Level of Care: Skilled Communicable Disease: No Discharge Prognosis: Stable Admission Data Admit Date/Time: 06/11/18 21:12 Attending Provider: Harsha Rogers Admit Provider: Luke Bunn Primary Care Provider: RHONDA Other Providers: Luke Bunn ; Jose Armando Iniguez ; Alverto Mccoy ; Charles Padilla ; Eliel Ordonez ; Rajesh Gomez ; Sanjay Gates ; Alba Chauhan ; Anaid Amaya ; Jose Armando Thomason Service: Medical
== END 2018-06-18 15:27 | DRG 308 ==
LOC: ED 19:10 → 2S 21:12 → SUATTDRO 21:12 → 2S 22:06 → 2W 06-14 14:20 → 4E 06-16 08:59

== ENCOUNTER 2019-07-12 15:48 | Inpatient (IN) ==
--- NOTE | 2019-07-12 17:03 | Emergency Department Note ---
History of Present Illness General Chief complaint: Shortness of Breath/Dyspnea Stated complaint: FEVER, COVID RULE OUT Time Seen by Provider: 07/12/19 16:26 Source: patient Mode of arrival: EMS Limitations: no limitations History of Present Illness Provider complaint: Fever, shortness of breath Onset (ago): day(s) Current Pain Intensity: 0 Exacerbated By: + movement Associated symptoms: + cough, + fever/chills, + shortness of breath and + weakness Treatments prior to arrival: none This is an 84-year-old female sent in via EMS from the [facility] due to fever and increased shortness of breath. Patient states yesterday she noticed she was more winded than usual with getting up and walking to the bathroom. Upon her usual checks by staff they noted she had a fever. States symptoms continued today and she felt weak and washed out. Slightly decreased appetite. Patient denies any vomiting or diarrhea. No difficulty urinating. Patient denies chest pain or abdominal pain. Patient denies any rhinorrhea, nasal congestion, or sore throat. Patient denies any worsening cough. Patient denies any prior history of pneumonia. States there have been coronavirus positive individuals at the [facility], although states she has been staying in her room and has not been around anyone that she knows is positive. Patient denies any history of asthma or COPD, denies any prior history of smoking. Patient denies any history of [place] or CHF. Pt states she is feeling improved here with oxygen in place. Pt seen during a time of high acuity and national emergency pandemic while wea ring PPE. Home Medications Home Medications Medication Instructions Recorded Confirmed Type losartan 50 mg PO QAM 06/11/18 07/12/19 History sertraline [Zoloft] 50 mg PO HS 06/11/18 07/12/19 History multivitamin with minerals 1 tab PO QAM 07/05/18 07/12/19 History [Multiple Vitamin-Minerals] tamsulosin 0.4 mg PO QPM 07/05/18 07/12/19 History thiamine HCl (vitamin B1) 100 mg PO QAM 07/05/18 07/12/19 History amlodipine 10 mg tablet 10 mg PO QAM 08/02/18 07/12/19 History metoprolol succinate 25 mg capsule 25 mg PO QAM 08/02/18 07/12/19 History sprinkle, ext. release 24 hr acetaminophen [Tylenol] 650 mg PO QID PRN MDD 3G 07/12/19 07/12/19 History cholecalciferol (vitamin D3) 125 mcg PO QAM 07/12/19 07/12/19 History menthol-zinc oxide [Calmoseptine] 1 applic TOPICAL BID PRN 07/12/19 07/12/19 H istory mirtazapine 7.5 mg PO HS 07/12/19 07/12/19 History Allergies Allergy/AdvReac Type Severity Reaction Status Date / Time No Known Allergies Allergy Verified 07/12/19 17:52 Past Med/Surg History Medical History Diverticulosis of large intestine without perforation or abscess without bleeding (Chronic) Essential (primary) hypertension (Chronic) Major depressive disorder, recurrent, mild (Chronic) Neuralgia and neuritis, unspecified (Chronic) No significant past medical history Osteoarthritis (Chronic) Other obesity due to excess calories (Chronic) Other postherpetic nervous system involvement (Chronic) Shingles (Resolved) Surgical History S/P hip replacement (Resolved) Social History Preferred Language: Danish Communication Ability: Effective User Experience Team Lead Required: No Beliefs That Will Affect Care: None marital status: / Current Living Situation: Personal Care Facility Current Living Situation Comment: Lives at [facility] current occupational status: retired Other Information That Helps Us Care for You: No Feels Safe at Home: Yes Safety Concerns: Feels Safe At This Time Smoking Status: Former smoker Second Hand Exposure: No ; Hx Alcohol Use: No Hx Substance Use: No Review of Systems See HPI for pertinent positives & negatives. and A total of 10 systems reviewed and were otherwise negative Physical Exam Vital Signs Vital Signs - 24 hr 07/14/19 07:00 07/14/19 08:00 07/14/19 11:19 Temperature 36.9 C Temperature Source Oral Pulse Rate 68 Pulse Rate [Right Finger] 62 Respiratory Rate 18 Respiratory Effort / Characteristics Non-Labored Spontaneous SOB on Exertion Respiratory Depth Normal Respiratory Pattern Regular Blood Pressure [Right Arm] 123/67 Blood Pressure Mean [Right Arm] 85 Blood Pressure Position [Right Arm] Lying Pulse Oximetry 95 Oxygen Delivery Method Room Air Room Air GENERAL: alert, well appearing, well nourished, no distress, non-toxic, oxygen via nasal cannula in place EYE EXAM: normal conjunctiva, PERRL and EOM's grossly intact OROPHARYNX: no exudate, no erythema, lips, buccal mucosa, and tongue normal and mucous membranes are moist NECK: supple, no nuchal rigidity, no adenopathy, non-tender, no stridor LUNGS: Normal chest wall mechanics, no wheezes, no retractions, no tripoding HEART: no murmurs, S1 normal and S2 normal ABDOMEN: abdomen soft, non-tender, normo-active bowel sounds, no masses, no rebound or guarding. BACK: Back is symmetrical on inspection and there is no deformity, no midline tenderness, no CVA tenderness. SKIN: no rashes and no bruising UPPER EXTREMITIES: upper extremities are grossly normal. FROM, nml pulses b/l. LOWER EXTREMITIES: No pitting edema. FROM, nml pulses b/l. NEURO EXAM: Normal sensorium, cranial nerves II-XII grossly intact, normal speech, no gross weakness of arms, no gross weakness of legs. Gross sensation intact. Course Course 1950: I spoke with nursing staff from the [facility]. They state patient's tempe rature yesterday was 100. In the state earlier today it was 99.4. 2009: A different credit and loan collections supervisor from the [facility] called back to provide additional information. She states yesterday patient's temperature ranged from 100.4- 100.9. She was given Tylenol, and only appeared slightly short of breath with e xertion. Patient does not wear oxygen. This morning she was 98.2. However as the day progressed she developed a slight fever again and appeared more short of breath with any exertion. Patient's room air sats for them on a check of vitals were 92%, however with any movement even in bed she feels markedly more short of breath. They had not noticed any other changes in her condition. Administered Medications Amlodipine Besylate (Norvasc) 10 mg PO [facility] Stop: 08/12/19 08:59 Last Admin: 07/14/19 08:31 Dose: 10 mg Documented by: [id number] Admin: 07/13/19 09:08 Dose: 10 mg Documented by: [id number] Calamine/Phenol (Calmoseptine) 1 appln EXT BID PRN PRN Reason: Skin Irritation Stop: 08/12/19 17:03 Last Admin: 07/13/19 22:30 Dose: 1 appln Documented by: [id number] Cephalexin HCl (Keflex) 500 mg PO BID [facility]; Protocol Stop: 07/19/19 14:29 Last Admin: 07/14/19 20:20 Dose: 500 mg Documented by: [id number] Admin: 07/14/19 17:40 Dose: 500 mg Documented by: [id number] Heparin Sodium/Dextrose (Heparin Sodium/Dextrose) 25,000 units in 500 mls @ 22 mls/hr IV .[id number] [facility]; Protocol Stop: 08/13/19 21:59 Last Admin: 07/14/19 22:06 Dose: 1,100 units/hr, 22 mls/hr Documented by: [id number] Cosigned by: [id number] Ioversol (Optiray 320 125ml) 118 ml IV ONCE PRN PRN Reason: Interaction Checking Stop: 07/18/19 18:11 Last Admin: 07/14/19 18:12 Dose: 1 ml Documented by: [id number] Losartan Potassium (Cozaar) 50 mg PO [facility] Stop: 08/12/19 08:59 Last Admin: 07/14/19 08:31 Dose: 50 mg Documented by: [id number] Admin: 07/13/19 09:08 Dose: 50 mg Documented by: [id number] Metoprolol Succinate (Toprol Xl) 25 mg PO [facility] Stop: 08/12/19 08:59 Last Admin: 07/14/19 08:32 Dose: 25 mg Documented by: [id number] Admin: 07/13/19 09:09 Dose: 25 mg Documented by: [id number] Mirtazapine (Remeron) 7.5 mg PO [facility] Stop: 08/12/19 20:59 Last Admin: 07/14/19 20:21 Dose: 7.5 mg Documented by: [id number] Admin: 07/13/19 20:42 Dose: 7.5 mg Documented by: [id number] Multivitamins/Minerals (Multivitamin W/ Minerals Tab) [facility] Stop: 08/12/19 08:59 Last Admin: 07/14/19 08:32 Dose: 1 tab Documented by: [id number] Admin: 07/13/19 09:09 Dose: 1 tab Documented by: [id number] Sertraline HCl (Zoloft) 50 mg PO HS [facility] Stop: 08/12/19 20:59 Last Admin: 07/14/19 20:21 Dose: 50 mg Documented by: [id number] Admin: 07/13/19 20:42 Dose: 50 mg Documented by: [id number] Tamsulosin HCl (Flomax) 0.4 mg PO QPM [facility] Stop: 08/12/19 20:59 Last Admin: 07/14/19 20:20 Dose: 0.4 mg Documented by: [id number] Admin: 07/13/19 20:42 Dose: 0.4 mg Documented by: [id number] Thiamine HCl (Vitamin B-1) 100 mg PO QAM [facility] Stop: 08/12/19 08:59 Last Admin: 07/14/19 08:31 Dose: 100 mg Documented by: [id number] Admin: 07/13/19 09:08 Dose: 100 mg Documented by: [id number] Discontinued Medications Aspirin (Aspirin) 324 mg PO NOW STA Stop: 07/12/19 20:54 Last Admin: 07/12/19 21:36 Dose: 324 mg Documented by: [id number] Enoxaparin Sodium (Lovenox) 40 mg SQ Q24H [facility] Stop: 08/12/19 08:59 Last Admin: 07/14/19 08:30 Dose: 40 mg Documented by: [id number] Admin: 07/13/19 09:09 Dose: 40 mg Documented by: [id number] Enoxaparin Sodium (Lovenox) 80 mg SQ Q12H [facility] Stop: 08/13/19 19:59 Last Admin: 07/14/19 20:28 Dose: Not Given Documented by: [id number] Furosemide (Lasix) 20 mg PO NOW STA Stop: 07/13/19 17:07 Last Admin: 07/13/19 17:32 Dose: 20 mg Documented by: [id number] Sodium Chloride (Nss 1000ml) 1,000 mls @ 150 mls/hr IV .[id number] [facility] Stop: 08/11/19 16:59 Last Admin: 07/13/19 06:14 Dose: Not Given Documented by: [id number] Admin: 07/13/19 00:42 Dose: Not Given Documented by: [id number] Admin: 07/12/19 21:36 Dose: Not Given Documented by: [id number] Furosemide 20 mg/ Syringe 2 mls @ 4 mls/min IV ONE ONE Stop: 07/14/19 12:01 Last Admin: 07/14/19 12:02 Dose: 4 mls/min Documented by: [id number] Heparin Sodium (Porcine) 5,000 (units/ Syringe) 5 mls @ 10 mls/min IV NOW ONE Stop: 07/14/19 22:01 Last Admin: 07/14/19 22:05 Dose: 10 mls/min Documented by: [id number] Cosigned by: [id number] Medical Decision Making Differential Diagnosis Differential diagnoses includes but is not limited to pneumonia, bronchitis, COPD/Asthma exacerbation, pneumothorax, pulmonary embolism, congestive heart failure, acute coronary syndrome, or viral syndrome Medical Records Attestation: I reviewed the patient's medical records. Home Medications Current Medication List: was personally reviewed by me Laboratory Data Attestation: I reviewed the patient's lab results. Result diagrams: 07/14/19 06:01 07/14/19 06:01 Lab Results 07/12/19 07/12/19 07/12/19 Range/Units 17:15 17:15 17:15 WBC (4.8-10.8) K/uL RBC (4.2-5.4) M/uL Hgb (12.0-16.0) g/dL Hct (37-47) % MCV (80-100) fL MCH (25-34) pg MCHC (32-36) g/dL RDW Std Deviation (36.4-46.3) fL RDW Coeff of Ranjana (11.5-14.5) % Plt Count (130-400) K/uL MPV (7.4-10.4) fL Immature Gran % (Auto) % Neut % (Auto) % Lymph % (Auto) % [place] % (Auto) % Eos % (Auto) % Baso % (Auto) % Immature Gran # (Auto) (0.00-0.02) K/uL Neut # (Auto) (1.4-6.5) K/uL Lymph # (Auto) (1.2-3.4) K/uL [place] # (Auto) (0.11-0.59) K/uL Eos # (Auto) (0-0.5) K/uL Baso # (Auto) (0-0.2) K/uL Absolute Nucleated RBC (0-0) K/uL Nucleated RBC % (auto) % PT (9.0-12.0) Seconds INR (0.9-1.1) APTT (21.0-31.0) Seconds PTT Ratio Sodium (136-145) mmol/L Potassium (3.5-5.1) mmol/L Chloride (98-107) mmol/L Carbon Dioxide (21-32) mmol/L Anion Gap (3-11) BUN (7-18) mg/dl Creatinine (0.6-1.2) mg/dl Est Cr Clr Drug Dosing ml/min Est GFR ( Amer) Est GFR (Non-Af Amer) BUN/Creatinine Ratio (10-20) Glucose (70-99) mg/dl Lactate (0.4-2.0) mmol/L Calcium (8.5-10.1) mg/dl Magnesium (1.8-2.4) mg/dl Total Bilirubin (0.2-1) mg/dl AST (15-37) U/L ALT (12-78) U/L Alkaline Phosphatase (45-117) U/L Troponin I (0-0.045) ng/ml NT-Pro-B Natriuret Pep (0-1800) pg/ml Total Protein (6.4-8.2) gm/dl Albumin (3.4-5.0) gm/dl Globulin (2.5-4.0) gm/dl Albumin/Globulin Ratio (0.9-2) Procalcitonin (0-0.5) ng/ml Urine Color Urine Appearance (Clear) Urine pH (4.5-7.5) Ur Specific [place] (1.000-1.030) Urine Protein (Negative) Urine Glucose (UA) (Negative) Urine Ketones (Negative) Urine Blood (Negative) Urine Nitrite (Negative) Urine Bilirubin (Negative) Urine Urobilinogen (Negative) Ur Leukocyte Esterase (Negative) Urine WBC (Auto) (0-5) /hpf Urine RBC (Auto) (0-4) /hpf U Hyaline Cast (Auto) (0-5) /lpf U Epithel Cells (Auto) (0-5) /lpf Urine Bacteria (Auto) (Negative) Urine Yeast Nasal Screen MRSA (PCR) (Negative) Adenovirus (PCR) (NotDetected) B. pertussis DNA (PCR) (NotDetected) B.parapertussis DNA PCR (NotDetected) C. pneumoniae DNA (PCR) (NotDetected) Coronavirus OC43 (PCR) (NotDetected) Coronavirus HKU1 (PCR) (NotDetected) Coronavirus 229E (PCR) (NotDetected) COVID-19 PCR NEGATIVE (Negative) Coronavirus NL63 (PCR) (NotDetected) Human Metapneumovir PCR (NotDetected) Influenza Type A (PCR) Neg for Influ A (Neg) Influenza Type B (PCR) Neg for Influ B (Neg) M. pneumoniae (PCR) (NotDetected) Parainfluenza 1 (PCR) (NotDetected) Parainfluenza 2 (PCR) (NotDetected) Parainfluenza 3 (PCR) (NotDetected) Parainfluenza 4 (PCR) (NotDetected) RSV (PCR) (NotDetected) Entero/Rhino (PCR) (NotDetected) SARS-CoV-2 RNA (RT-PCR) Cancelled 07/12/19 07/12/19 07/12/19 Range/Units 17:15 17:56 17:56 WBC 10.17 (4.8-10.8) K/uL RBC 4.96 (4.2-5.4) M/uL Hgb 13.4 (12.0-16.0) g/dL Hct 41.8 (37-47) % MCV 84.3 (80-100) fL MCH 27.0 (25-34) pg MCHC 32.1 (32-36) g/dL RDW Std Deviation 45.3 (36.4-46.3) fL RDW Coeff of Ranjana 14.6 H (11.5-14.5) % Plt Count 246 (130-400) K/uL MPV 10.0 (7.4-10.4) fL Immature Gran % (Auto) 0.7 % Neut % (Auto) 70.9 % Lymph % (Auto) 17.6 % [place] % (Auto) 8.0 % Eos % (Auto) 2.4 % Baso % (Auto) 0.4 % Immature Gran # (Auto) 0.07 H (0.00-0.02) K/uL Neut # (Auto) 7.22 H (1.4-6.5) K/uL Lymph # (Auto) 1.79 (1.2-3.4) K/uL [place] # (Auto) 0.81 H (0.11-0.59) K/uL Eos # (Auto) 0.24 (0-0.5) K/uL Baso # (Auto) 0.04 (0-0.2) K/uL Absolute Nucleated RBC (0-0) K/uL Nucleated RBC % (auto) % PT 10.4 (9.0-12.0) Seconds INR 1.0 (0.9-1.1) APTT 23.2 (21.0-31.0) Seconds PTT Ratio 0.8 Sodium (136-145) mmol/L Potassium (3.5-5.1) mmol/L Chloride (98-107) mmol/L Carbon Dioxide (21-32) mmol/L Anion Gap (3-11) BUN (7-18) mg/dl Creatinine (0.6-1.2) mg/dl Est Cr Clr Drug Dosing ml/min Est GFR ( Amer) Est GFR (Non-Af Amer) BUN/Creatinine Ratio (10-20) Glucose (70-99) mg/dl Lactate (0.4-2.0) mmol/L Calcium (8.5-10.1) mg/dl Magnesium (1.8-2.4) mg/dl Total Bilirubin (0.2-1) mg/dl AST (15-37) U/L ALT (12-78) U/L Alkaline Phosphatase (45-117) U/L Troponin I (0-0.045) ng/ml NT-Pro-B Natriuret Pep (0-1800) pg/ml Total Protein (6.4-8.2) gm/dl Albumin (3.4-5.0) gm/dl Globulin (2.5-4.0) gm/dl Albumin/Globulin Ratio (0.9-2) Procalcitonin (0-0.5) ng/ml Urine Color Urine Appearance (Clear) Urine pH (4.5-7.5) Ur Specific [place] (1.000-1.030) Urine Protein (Negative) Urine Glucose (UA) (Negative) Urine Ketones (Negative) Urine Blood (Negative) Urine Nitrite (Negative) Urine Bilirubin (Negative) Urine Urobilinogen (Negative) Ur Leukocyte Esterase (Negative) Urine WBC (Auto) (0-5) /hpf Urine RBC (Auto) (0-4) /hpf U Hyaline Cast (Auto) (0-5) /lpf U Epithel Cells (Auto) (0-5) /lpf Urine Bacteria (Auto) (Negative) Urine Yeast Nasal Screen MRSA (PCR) (Negative) Adenovirus (PCR) Not Detected (NotDetected) B. pertussis DNA (PCR) Not Detected (NotDetected) B.parapertussis DNA PCR Not Detected (NotDetected) C. pneumoniae DNA (PCR) Not Detected (NotDetected) Coronavirus OC43 (PCR) Not Detected (NotDetected) Coronavirus HKU1 (PCR) Not Detected (NotDetected) Coronavirus 229E (PCR) Not Detected (NotDetected) COVID-19 PCR (Negative) Coronavirus NL63 (PCR) Not Detected (NotDetected) Human Metapneumovir PCR Not Detected (NotDetected) Influenza Type A (PCR) Not Detected (Neg) Influenza Type B (PCR) Not Detected (Neg) M. pneumoniae (PCR) Not Detected (NotDetected) Parainfluenza 1 (PCR) Not Detected (NotDetected) Parainfluenza 2 (PCR) Not Detected (NotDetected) Parainfluenza 3 (PCR) Not Detected (NotDetected) Parainfluenza 4 (PCR) Not Detected (NotDetected) RSV (PCR) Not Detected (NotDetected) Entero/Rhino (PCR) Not Detected (NotDetected) SARS-CoV-2 RNA (RT-PCR) 07/12/19 07/12/19 07/12/19 Range/Units 17:56 17:56 17:57 WBC (4.8-10.8) K/uL RBC (4.2-5.4) M/uL Hgb (12.0-16.0) g/dL Hct (37-47) % MCV (80-100) fL MCH (25-34) pg MCHC (32-36) g/dL RDW Std Deviation (36.4-46.3) fL RDW Coeff of Ranjana (11.5-14.5) % Plt Count (130-400) K/uL MPV (7.4-10.4) fL Immature Gran % (Auto) % Neut % (Auto) % Lymph % (Auto) % [place] % (Auto) % Eos % (Auto) % Baso % (Auto) % Immature Gran # (Auto) (0.00-0.02) K/uL Neut # (Auto) (1.4-6.5) K/uL Lymph # (Auto) (1.2-3.4) K/uL [place] # (Auto) (0.11-0.59) K/uL Eos # (Auto) (0-0.5) K/uL Baso # (Auto) (0-0.2) K/uL Absolute Nucleated RBC (0-0) K/uL Nucleated RBC % (auto) % PT (9.0-12.0) Seconds INR (0.9-1.1) APTT (21.0-31.0) Seconds PTT Ratio Sodium 140 (136-145) mmol/L Potassium 4.0 (3.5-5.1) mmol/L Chloride 111 H (98-107) mmol/L Carbon Dioxide 24 (21-32) mmol/L Anion Gap 5.0 (3-11) BUN 17 (7-18) mg/dl Creatinine 1.03 (0.6-1.2) mg/dl Est Cr Clr Drug Dosing 40.3 ml/min Est GFR ( Amer) 57.8 Est GFR (Non-Af Amer) 49.9 BUN/Creatinine Ratio 16.0 (10-20) Glucose 114 H (70-99) mg/dl Lactate 1.3 (0.4-2.0) mmol/L Calcium 8.7 (8.5-10.1) mg/dl Magnesium 2.4 (1.8-2.4) mg/dl Total Bilirubin 0.3 (0.2-1) mg/dl AST 12 L (15-37) U/L ALT 19 (12-78) U/L Alkaline Phosphatase 128 H (45-117) U/L Troponin I 0.211 H* (0-0.045) ng/ml NT-Pro-B Natriuret Pep 2255 H (0-1800) pg/ml Total Protein 7.7 (6.4-8.2) gm/dl Albumin 3.4 (3.4-5.0) gm/dl Globulin 4.3 H (2.5-4.0) gm/dl Albumin/Globulin Ratio 0.8 L (0.9-2) Procalcitonin < 0.05 (0-0.5) ng/ml Urine Color Urine Appearance (Clear) Urine pH (4.5-7.5) Ur Specific [place] (1.000-1.030) Urine Protein (Negative) Urine Glucose (UA) (Negative) Urine Ketones (Negative) Urine Blood (Negative) Urine Nitrite (Negative) Urine Bilirubin (Negative) Urine Urobilinogen (Negative) Ur Leukocyte Esterase (Negative) Urine WBC (Auto) (0-5) /hpf Urine RBC (Auto) (0-4) /hpf U Hyaline Cast (Auto) (0-5) /lpf U Epithel Cells (Auto) (0-5) /lpf Urine Bacteria (Auto) (Negative) Urine Yeast Nasal Screen MRSA (PCR) (Negative) Adenovirus (PCR) (NotDetected) B. pertussis DNA (PCR) (NotDetected) B.parapertussis DNA PCR (NotDetected) C. pneumoniae DNA (PCR) (NotDetected) Coronavirus OC43 (PCR) (NotDetected) Coronavirus HKU1 (PCR) (NotDetected) Coronavirus 229E (PCR) (NotDetected) COVID-19 PCR (Negative) Coronavirus NL63 (PCR) (NotDetected) Human Metapneumovir PCR (NotDetected) Influenza Type A (PCR) (Neg) Influenza Type B (PCR) (Neg) M. pneumoniae (PCR) (NotDetected) Parainfluenza 1 (PCR) (NotDetected) Parainfluenza 2 (PCR) (NotDetected) Parainfluenza 3 (PCR) (NotDetected) Parainfluenza 4 (PCR) (NotDetected) RSV (PCR) (NotDetected) Entero/Rhino (PCR) (NotDetected) SARS-CoV-2 RNA (RT-PCR) 07/13/19 07/13/19 07/13/19 Range/Units 00:51 04:14 04:14 WBC 9.46 (4.8-10.8) K/uL RBC 4.53 (4.2-5.4) M/uL Hgb 12.8 (12.0-16.0) g/dL Hct 38.2 (37-47) % MCV 84.3 (80-100) fL MCH 28.3 (25-34) pg MCHC 33.5 (32-36) g/dL RDW Std Deviation 44.8 (36.4-46.3) fL RDW Coeff of Ranjana 14.5 (11.5-14.5) % Plt Count 210 (130-400) K/uL MPV 10.1 (7.4-10.4) fL Immature Gran % (Auto) 0.5 % Neut % (Auto) 65.5 % Lymph % (Auto) 21.5 % [place] % (Auto) 7.9 % Eos % (Auto) 4.3 % Baso % (Auto) 0.3 % Immature Gran # (Auto) 0.05 H (0.00-0.02) K/uL Neut # (Auto) 6.19 (1.4-6.5) K/uL Lymph # (Auto) 2.03 (1.2-3.4) K/uL [place] # (Auto) 0.75 H (0.11-0.59) K/uL Eos # (Auto) 0.41 (0-0.5) K/uL Baso # (Auto) 0.03 (0-0.2) K/uL Absolute Nucleated RBC (0-0) K/uL Nucleated RBC % (auto) % PT (9.0-12.0) Seconds INR (0.9-1.1) APTT (21.0-31.0) Seconds PTT Ratio Sodium (136-145) mmol/L Potassium (3.5-5.1) mmol/L Chloride (98-107) mmol/L Carbon Dioxide (21-32) mmol/L Anion Gap (3-11) BUN (7-18) mg/dl Creatinine (0.6-1.2) mg/dl Est Cr Clr Drug Dosing ml/min Est GFR ( Amer) Est GFR (Non-Af Amer) BUN/Creatinine Ratio (10-20) Glucose (70-99) mg/dl Lactate (0.4-2.0) mmol/L Calcium (8.5-10.1) mg/dl Magnesium (1.8-2.4) mg/dl Total Bilirubin (0.2-1) mg/dl AST (15-37) U/L ALT (12-78) U/L Alkaline Phosphatase (45-117) U/L Troponin I 0.099 H* (0-0.045) ng/ml NT-Pro-B Natriuret Pep (0-1800) pg/ml Total Protein (6.4-8.2) gm/dl Albumin (3.4-5.0) gm/dl Globulin (2.5-4.0) gm/dl Albumin/Globulin Ratio (0.9-2) Procalcitonin (0-0.5) ng/ml Urine Color Urine Appearance (Clear) Urine pH (4.5-7.5) Ur Specific [place] (1.000-1.030) Urine Protein (Negative) Urine Glucose (UA) (Negative) Urine Ketones (Negative) Urine Blood (Negative) Urine Nitrite (Negative) Urine Bilirubin (Negative) Urine Urobilinogen (Negative) Ur Leukocyte Esterase (Negative) Urine WBC (Auto) (0-5) /hpf Urine RBC (Auto) (0-4) /hpf U Hyaline Cast (Auto) (0-5) /lpf U Epithel Cells (Auto) (0-5) /lpf Urine Bacteria (Auto) (Negative) Urine Yeast Nasal Screen MRSA (PCR) Negative (Negative) Adenovirus (PCR) (NotDetected) B. pertussis DNA (PCR) (NotDetected) B.parapertussis DNA PCR (NotDetected) C. pneumoniae DNA (PCR) (NotDetected) Coronavirus OC43 (PCR) (NotDetected) Coronavirus HKU1 (PCR) (NotDetected) Coronavirus 229E (PCR) (NotDetected) COVID-19 PCR (Negative) Coronavirus NL63 (PCR) (NotDetected) Human Metapneumovir PCR (NotDetected) Influenza Type A (PCR) (Neg) Influenza Type B (PCR) (Neg) M. pneumoniae (PCR) (NotDetected) Parainfluenza 1 (PCR) (NotDetected) Parainfluenza 2 (PCR) (NotDetected) Parainfluenza 3 (PCR) (NotDetected) Parainfluenza 4 (PCR) (NotDetected) RSV (PCR) (NotDetected) Entero/Rhino (PCR) (NotDetected) SARS-CoV-2 RNA (RT-PCR) 07/13/19 07/13/19 07/13/19 Range/Units 04:14 09:00 12:23 WBC (4.8-10.8) K/uL RBC (4.2-5.4) M/uL Hgb (12.0-16.0) g/dL Hct (37-47) % MCV (80-100) fL MCH (25-34) pg MCHC (32-36) g/dL RDW Std Deviation (36.4-46.3) fL RDW Coeff of Ranjana (11.5-14.5) % Plt Count (130-400) K/uL MPV (7.4-10.4) fL Immature Gran % (Auto) % Neut % (Auto) % Lymph % (Auto) % [place] % (Auto) % Eos % (Auto) % Baso % (Auto) % Immature Gran # (Auto) (0.00-0.02) K/uL Neut # (Auto) (1.4-6.5) K/uL Lymph # (Auto) (1.2-3.4) K/uL [place] # (Auto) (0.11-0.59) K/uL Eos # (Auto) (0-0.5) K/uL Baso # (Auto) (0-0.2) K/uL Absolute Nucleated RBC (0-0) K/uL Nucleated RBC % (auto) % PT (9.0-12.0) Seconds INR (0.9-1.1) APTT (21.0-31.0) Seconds PTT Ratio Sodium 142 (136-145) mmol/L Potassium 3.7 (3.5-5.1) mmol/L Chloride 112 H (98-107) mmol/L Carbon Dioxide 25 (21-32) mmol/L Anion Gap 5.0 (3-11) BUN 15 (7-18) mg/dl Creatinine 0.76 (0.6-1.2) mg/dl Est Cr Clr Drug Dosing 53.7 ml/min Est GFR ( Amer) 83.5 Est GFR (Non-Af Amer) 72.0 BUN/Creatinine Ratio 19.2 (10-20) Glucose 119 H (70-99) mg/dl Lactate (0.4-2.0) mmol/L Calcium 8.3 L (8.5-10.1) mg/dl Magnesium (1.8-2.4) mg/dl Total Bilirubin 0.5 (0.2-1) mg/dl AST 14 L (15-37) U/L ALT 18 (12-78) U/L Alkaline Phosphatase 112 (45-117) U/L Troponin I 0.060 H* (0-0.045) ng/ml NT-Pro-B Natriuret Pep (0-1800) pg/ml Total Protein 7.1 (6.4-8.2) gm/dl Albumin 3.2 L (3.4-5.0) gm/dl Globulin 3.9 (2.5-4.0) gm/dl Albumin/Globulin Ratio 0.8 L (0.9-2) Procalcitonin (0-0.5) ng/ml Urine Color Yellow Urine Appearance Cloudy A (Clear) Urine pH 5.5 (4.5-7.5) Ur Specific [place] 1.022 (1.000-1.030) Urine Protein Negative (Negative) Urine Glucose (UA) Negative (Negative) Urine Ketones Trace H (Negative) Urine Blood Negative (Negative) Urine Nitrite Negative (Negative) Urine Bilirubin Negative (Negative) Urine Urobilinogen Negative (Negative) Ur Leukocyte Esterase 1+ H (Negative) Urine WBC (Auto) 1-5 (0-5) /hpf Urine RBC (Auto) 0-4 (0-4) /hpf U Hyaline Cast (Auto) 1-5 (0-5) /lpf U Epithel Cells (Auto) >30 H (0-5) /lpf Urine Bacteria (Auto) 4+ H (Negative) Urine Yeast Not Reportable Nasal Screen MRSA (PCR) (Negative) Adenovirus (PCR) (NotDetected) B. pertussis DNA (PCR) (NotDetected) B.parapertussis DNA PCR (NotDetected) C. pneumoniae DNA (PCR) (NotDetected) Coronavirus OC43 (PCR) (NotDetected) Coronavirus HKU1 (PCR) (NotDetected) Coronavirus 229E (PCR) (NotDetected) COVID-19 PCR (Negative) Coronavirus NL63 (PCR) (NotDetected) Human Metapneumovir PCR (NotDetected) Influenza Type A (PCR) (Neg) Influenza Type B (PCR) (Neg) M. pneumoniae (PCR) (NotDetected) Parainfluenza 1 (PCR) (NotDetected) Parainfluenza 2 (PCR) (NotDetected) Parainfluenza 3 (PCR) (NotDetected) Parainfluenza 4 (PCR) (NotDetected) RSV (PCR) (NotDetected) Entero/Rhino (PCR) (NotDetected) SARS-CoV-2 RNA (RT-PCR) 07/14/19 07/14/19 Range/Units 06:01 06:01 WBC 7.92 (4.8-10.8) K/uL RBC 4.53 (4.2-5.4) M/uL Hgb 12.5 (12.0-16.0) g/dL Hct 38.1 (37-47) % MCV 84.1 (80-100) fL MCH 27.6 (25-34) pg MCHC 32.8 (32-36) g/dL RDW Std Deviation 44.0 (36.4-46.3) fL RDW Coeff of Ranjana 14.4 (11.5-14.5) % Plt Count 233 (130-400) K/uL MPV 10.4 (7.4-10.4) fL Immature Gran % (Auto) % Neut % (Auto) % Lymph % (Auto) % [place] % (Auto) % Eos % (Auto) % Baso % (Auto) % Immature Gran # (Auto) (0.00-0.02) K/uL Neut # (Auto) (1.4-6.5) K/uL Lymph # (Auto) (1.2-3.4) K/uL [place] # (Auto) (0.11-0.59) K/uL Eos # (Auto) (0-0.5) K/uL Baso # (Auto) (0-0.2) K/uL Absolute Nucleated RBC 0.04 H (0-0) K/uL Nucleated RBC % (auto) 0.5 % PT (9.0-12.0) Seconds INR (0.9-1.1) APTT (21.0-31.0) Seconds PTT Ratio Sodium 138 (136-145) mmol/L Potassium (3.5-5.1) mmol/L Chloride 107 (98-107) mmol/L Carbon Dioxide 23 (21-32) mmol/L Anion Gap 8.0 (3-11) BUN 13 (7-18) mg/dl Creatinine 0.79 (0.6-1.2) mg/dl Est Cr Clr Drug Dosing 51.3 ml/min Est GFR ( Amer) 79.7 Est GFR (Non-Af Amer) 68.7 BUN/Creatinine Ratio 16.6 (10-20) Glucose 124 H (70-99) mg/dl Lactate (0.4-2.0) mmol/L Calcium 8.6 (8.5-10.1) mg/dl Magnesium (1.8-2.4) mg/dl Total Bilirubin (0.2-1) mg/dl AST (15-37) U/L ALT (12-78) U/L Alkaline Phosphatase (45-117) U/L Troponin I (0-0.045) ng/ml NT-Pro-B Natriuret Pep 1212 (0-1800) pg/ml Total Protein (6.4-8.2) gm/dl Albumin (3.4-5.0) gm/dl Globulin (2.5-4.0) gm/dl Albumin/Globulin Ratio (0.9-2) Procalcitonin (0-0.5) ng/ml Urine Color Urine Appearance (Clear) Urine pH (4.5-7.5) Ur Specific [place] (1.000-1.030) Urine Protein (Negative) Urine Glucose (UA) (Negative) Urine Ketones (Negative) Urine Blood (Negative) Urine Nitrite (Negative) Urine Bilirubin (Negative) Urine Urobilinogen (Negative) Ur Leukocyte Esterase (Negative) Urine WBC (Auto) (0-5) /hpf Urine RBC (Auto) (0-4) /hpf U Hyaline Cast (Auto) (0-5) /lpf U Epithel Cells (Auto) (0-5) /lpf Urine Bacteria (Auto) (Negative) Urine Yeast Nasal Screen MRSA (PCR) (Negative) Adenovirus (PCR) (NotDetected) B. pertussis DNA (PCR) (NotDetected) B.parapertussis DNA PCR (NotDetected) C. pneumoniae DNA (PCR) (NotDetected) Coronavirus OC43 (PCR) (NotDetected) Coronavirus HKU1 (PCR) (NotDetected) Coronavirus 229E (PCR) (NotDetected) COVID-19 PCR (Negative) Coronavirus NL63 (PCR) (NotDetected) Human Metapneumovir PCR (NotDetected) Influenza Type A (PCR) (Neg) Influenza Type B (PCR) (Neg) M. pneumoniae (PCR) (NotDetected) Parainfluenza 1 (PCR) (NotDetected) Parainfluenza 2 (PCR) (NotDetected) Parainfluenza 3 (PCR) (NotDetected) Parainfluenza 4 (PCR) (NotDetected) RSV (PCR) (NotDetected) Entero/Rhino (PCR) (NotDetected) SARS-CoV-2 RNA (RT-PCR) Imaging Data Radiologist's Impression: XR chest 1V portable CLINICAL HISTORY: SEPSIS COMPARISON STUDY: 06/11/2018 FINDINGS: The heart is mildly enlarged. There is stable mild interstitial thickening. There are minor right basilar atelectatic changes. There is no lobar consolidation.[ IMPRESSION: No significant change from the prior study. Stable cardiomegaly and mild interstitial thickening. No evidence of lobar consolidation. ACT 112: Negative or not required by law. Electronically signed by: Kaden Duron M.D. 07/12/2019 6:12 PM ECG Data Attestation: I personally reviewed and interpreted this ECG as follows: Indication: + SOB/dyspnea Rate (beats per minute): 76 Rhythm: + normal sinus ECG Intervals/blocks: + Normal QRS and + Normal QT ECG [place]: + Normal ECG ST segments: + Normal ST segments Additional Comments: low voltage Blood Pressure Blood Pressure Findings: Elevated blood pressure Blood Pressure Disposition: further management by hospitalist MDM Narrative Pt sent from [facility] due to fever, increased dyspnea with exertion. Staff concerned about possible COVID as there have been cases there. Pt has been in her room. Pt states she feels well except for being slightly winded with exertion. Pt placed on oxygen and no distress in the ER except with movement/exertion. Pt afebrile here. VS stable. CXR with pneumonia, effusion, chf. PT with risk factors for CAD. Pt found to have elevated troponin and BNP. Given pending COVD testing, pt not sent immediately for CT to also r/o PE. This was discussed with and deferred to the hospitalist. No obvious LE edema or calf tenderness to suggest DVT and no hx in patient of DVT/PE. Pt aware of all results and in agreement with plan. An order was placed for continuous cardiac monitoring. The monitor shows a rate of 80_ with _normal sinus rhythm_ rhythm. Impression & Plan Acute dyspnea, Fever, Elevated troponin Discharge Plan Visit Data *Final* Discharge Date/Time: 07/12/19 23:17 Chief Complaint: Shortness of Breath/Dyspnea Stated Complaint: FEVER, COVID RULE OUT ED Provider: Marti Dutton Discharge Problem: Acute dyspnea, Fever, Elevated troponin Patient Disposition: Admitted As Inpatient Discharge Instructions Interventions: ED Discharge Assessment Last Done: 07/12/19 23:17 Discharge Problem: Fever Qualifiers: Fever type: unspecified Qualified Code(s): R50.9 - Fever, unspecified
[2019-07-12 17:57] LABS: Influenza A virus by PCR Neg for Influ A (Neg); Influenza B virus by PCR Neg for Influ B (Neg)
[2019-07-12 18:08] LABS: Basophils # (auto) 0.04 K/uL (0-0.2); Basophils % (auto) 0.4 %; Eosinophils # (auto) 0.24 K/uL (0-0.5); Eosinophils % (auto) 2.4 %; Hematocrit (blood only) 41.8 % (37-47); Hemoglobin 13.4 g/dL (12.0-16.0); Immature Granulocytes # (auto) 0.07 K/uL (0.00-0.02); Immature Granulocytes % (auto) 0.7 %; Lymphocytes # (auto) 1.79 K/uL (1.2-3.4); Lymphocytes % (auto) 17.6 %; Mean Corpuscular Hgb Conc 32.1 g/dL (32-36); Mean Corpuscular Volume 84.3 fL (80-100); Monocytes # (auto) 0.81 K/uL (0.11-0.59); Neutrophils # (auto) 7.22 K/uL (1.4-6.5); Neutrophils % (auto) 70.9 %; Platelet Count 246 K/uL (130-400); RDW Coefficient of Variation 14.6 % (11.5-14.5); RDW Standard Deviation 45.3 fL (36.4-46.3); Red Blood Count 4.96 M/uL (4.2-5.4); White Blood Count 10.17 K/uL (4.8-10.8)
--- NOTE | 2019-07-12 18:13 | XRay Report ---
XR chest 1V portable CLINICAL HISTORY: SEPSIS COMPARISON STUDY: 06/11/2018 FINDINGS: The heart is mildly enlarged. There is stable mild interstitial thickening. There are minor right basilar atelectatic changes. There is no lobar consolidation.[ IMPRESSION: No significant change from the prior study. Stable cardiomegaly and mild interstitial thi ckening. No evidence of lobar consolidation. ACT 112: Negative or not required by law. Electronically signed by: Kaden Duron M.D. 07/12/2019 6:12 PM
[2019-07-12 18:23] LABS: Albumin Level 3.4 gm/dl (3.4-5.0); Calcium 8.7 mg/dl (8.5-10.1); Creatinine Clr Calc Pharmacy 40.3 ml/min; Est GFR (African American) 57.8; Est GFR (Non-African American) 49.9; Magnesium 2.4 mg/dl (1.8-2.4); Partial Thromboplastin Ratio 0.8; Partial Thromboplastin Time 23.2 Seconds (21.0-31.0); Prothrombin Time 10.4 Seconds (9.0-12.0)
[2019-07-12 18:36] LABS: Albumin Globulin Ratio 0.8 (0.9-2); Bilirubin,Total 0.3 mg/dl (0.2-1); Globulin 4.3 gm/dl (2.5-4.0); Total Protein 7.7 gm/dl (6.4-8.2); Troponin I 0.211 ng/ml (0-0.045)
[2019-07-12] MEDS ORDERED: ASPIRIN CHEW 324 MG PO STA (20:53)
[2019-07-12] MEDS: SODIUM CHLORIDE 0.9% 1000ML 1,000 ML IV SCH (21:36)
--- NOTE | 2019-07-12 23:01 | History & Physical Report ---
Date of Service July 12, 2019 Assessment & Plan Admission and Anticipated Discharge Date Admission Date: Noelle is an 84-year-old female with a history of hypertension who presents with 1 day of fever, shortness of breath with new oxygen requirement, new right upper quadrant abdominal tenderness on exam, and 1 to 2 days of increased urinary frequency without dysuria. Acute hypoxic respiratory failure No prior oxygen requirement, currently requiring 3 L nasal cannula oxygen Patient denies cough or other respiratory symptoms. Chest x-ray unremarkable on admission CTchest noncontrast pending Procalcitonin negative, no leukocytosis Differential includes viral illness Supplemental oxygen as needed Empiric antibiotics deferred at this time, continue to follow clinically Elevated troponin Troponin 0.211, BNP to 255 on admission Patient without history of cardiac disease EKG shows no acute ischemic findings Trend troponin every 8 hours x2 Differential includes viral illness with possible carditis Right upper quadrant tenderness New per patient, focally tender without rebound. Alk phos mildly elevated CTabdomen noncontrast pending N.p.o. pending imaging Polyuria without dysuria/hematuria UA pending No leukocytosis Nonfasting glucose on admission 114 Hypertension Continue amlodipine 10 mg Continue metoprolol succinate 25 mg daily Continue losartan 50 mg daily History of SVT Continue metoprolol as above Depression Continue sertraline 50 mg daily DVT prophylaxis: Enoxaparin 40 mg subcu daily CODE STATUS: DNR/DNI, discussed with patient Diet: N.p.o. pending above eval Disposition: Med/surge with telemetry History of Present Illness Chief Complaint: Shortness of breath Primary Care Provider: Tomer Belcehr MD Patient is an 84-year-old female with a past medical history of SVT and hypertension who presents with 1 day of shortness of breath with a fever to approximately 100 F at [facility]. At bedside she endorses that she has been short of breath for 1 day without a cough or sputum production. She notes that walking to the bathroom increases her shortness of breath. She does not have a normal home oxygen requirement. She denies a history of asthma/COPD, denies history of heart disease including congestive heart failure and MT. No tobacco use in the last 4 years, 1 pack/week sporadic use prior to this. She has not had any chest pain, jaw pain, or shoulder pain. She is not had any lightheadedness or dizziness. She has not had a feeling that she is going to pass out. She endorses increased urinary output without dysuria or blood in the urine for 2 to 3 days. She denies abdominal and lower back pain. She lives alone at the [facility] and has been mostly quarantining, she denies any recent sick contacts. Medical history: Patient denies history of medical problems. Surgical history: Reviewed Medications: Reviewed Allergies: No known drug allergies Social: Denies alcohol use. Denies tobacco use in the last 4 years, 1 pack/week sporadic tobacco use prior to this. She lives alone at the [facility]. No recent sick contacts. Denies recreational drug use. CODE STATUS: DNR/DNI. Discussed with patient. Patient reports she would not want chest compressions if her heart were to stop, and would not want intubation if she were not able to breathe on her own. Allergies Allergy/AdvReac Type Severity Reaction Status Date / Time No Known Allergies Allergy Verified 07/12/19 17:52 Home Medications Home Medications Medication Instructions Recorded Confirmed Type losartan 50 mg PO QAM 06/11/18 07/12/19 History sertraline [Zoloft] 50 mg PO HS 06/11/18 07/12/19 History multivitamin with minerals 1 tab PO QAM 07/05/18 07/12/19 History [Multiple Vitamin-Minerals] tamsulosin 0.4 mg PO QPM 07/05/18 07/12/19 History thiamine HCl (vitamin B1) 100 mg PO QAM 07/05/18 07/12/19 History amlodipine 10 mg tablet 10 mg PO QAM 08/02/18 07/12/19 History metoprolol succinate 25 mg capsule 25 mg PO QAM 08/02/18 07/12/19 History sprinkle, ext. release 24 hr acetaminophen [Tylenol] 650 mg PO QID PRN MDD 3G 07/12/19 07/12/19 History cholecalciferol (vitamin D3) 125 mcg PO QAM 07/12/19 07/12/19 History menthol-zinc oxide [Calmoseptine] 1 applic TOPICAL BID PRN 07/12/19 07/12/19 History mirtazapine 7.5 mg PO HS 07/12/19 07/12/19 History Past Med/Surg History Medical History Diverticulosis of large intestine without perforation or abscess without bleeding (Chronic) Essential (primary) hypertension (Chronic) Major depressive disorder, recurrent, mild (Chronic) Neuralgia and neuritis, unspecified (Chronic) No significant past medical history Osteoarthritis (Chronic) Other obesity due to excess calories (Chronic) Other postherpetic nervous system involvement (Chronic) Shingles (Resolved) Surgical History S/P hip replacement (Resolved) Social History Preferred Language: Qatari Communication Ability: Effective Licensing Services Clerk Required: No Beliefs That Will Affect Care: None Current Living Situation: Personal Care Facility Current Living Situation Comment: Lives at [facility] current occupational status: retired Other Information That Helps Us Care for You: No Feels Safe at Home: Yes Safety Concerns: Feels Safe At This Time Smoking Status: Former smoker Second Hand Exposure: No ; Hx Alcohol Use: No Hx Substance Use: No Review of Systems Review of Systems: Constitutional: Endorses fever. Eyes: Denies double vision, vision change, eye pain ENT: Denies ear pain, sore throat, sinus pain Cardiovascular: Denies Chest pain, chest pressure, palpitations. Respiratory: See HPI Gastrointestinal: Denies abdominal pain, nausea, vomiting, constipation, diarrhea. Denies pain with meals. Genitourinary: Denies pain with urination, urinary urgency. Endorses 2 days of increased urinary frequency. Musculoskeletal: Denies acute weakness, muscle aches/pain, joint aches/pain Integumentary:Denies acute rash, lesions, bruising Neurological: Denies headache, numbness, tingling, focal weakness Physical Exam Physical Exam: General: A&Ox3. NAD. Cooperative. HEENT: Atraumatic, normocephalic. Neck supple. No cervical or clavicular lymphadenopathy. Oropharynx tacky, no overt dental caries or purulence. Upper dental retainer in place. Pulm: Radiating upper airway wheeze present. No rales, no rhonchi. Symmetrical chest rise. No respiratory distress. Patient breathing on 3 L nasal cannula. Cardiac: RRR, -mrg. Radial pulses intact and symmetrical. Abdominal: Right upper quadrant focally tender to palpation. No left-sided abdominal tenderness. No epigastric tenderness. No rebound tenderness. Abdomen soft. Bowel sounds intact. Extremities: Moving all extremities equally. PT pulses intact bilaterally, radial pulses intact bilaterally. Sensation is soft touch intact in fingertips and ankles. Results & Data Results & Data ([facility]) Vital Signs (Past 12 Hours) Vital Signs Temp Pulse Pulse Resp BP BP Pulse Ox 07/12/19 22:01 71 20 97 07/12/19 22:00 75 25 H 149/91 H 97 07/12/19 21:31 73 23 98 07/12/19 21:30 72 21 152/83 H 96 07/12/19 21:02 76 22 97 07/12/19 21:01 79 22 126/54 L 97 07/12/19 21:00 82 24 98 07/12/19 20:31 79 17 147/89 H 96 07/12/19 20:30 67 23 96 07/12/19 20:19 66 21 155/84 H 97 07/12/19 20:18 67 21 155/84 H 98 07/12/19 20:01 75 24 141/84 H 97 07/12/19 20:00 88 24 96 07/12/19 19:31 75 20 167/60 H 99 07/12/19 19:30 77 22 94 07/12/19 19:02 66 24 97 07/12/19 19:01 68 19 152/60 H 96 07/12/19 19:00 66 21 97 07/12/19 18:45 64 21 99 07/12/19 18:31 70 19 167/73 H 99 07/12/19 18:30 66 21 97 07/12/19 18:15 66 22 98 07/12/19 18:02 71 20 98 07/12/19 18:01 69 27 H 134/68 97 07/12/19 17:31 69 23 148/84 H 94 07/12/19 17:00 69 23 143/66 H 99 07/12/19 16:55 77 23 97 07/12/19 16:42 72 24 139/74 98 07/12/19 16:01 79 22 154/54 H 96 07/12/19 15:57 83 26 H 165/90 H 96 07/12/19 15:48 37.3 C 77 23 165/90 H 97 Code Status & VTE Plan VTE Prophylaxis Plan VTE Prophylaxis will be ordered: Yes Supervising Physician Co-Signing Physician Notes Attending addendum: I have physically seen this patient, have supervised the medical residents activities, and agree with the H&P unless as otherwise noted. Assessment and Plan: Acute respiratory failure with hypoxia- Continue nasal cannula 3 L oxygen, titrate to keep pulse ox 92 to 94%. Duonebs every 4 hours while awake and every 2 hours when necessary. Guaifenesin extended release 600 mg p.o. twice daily Elevated troponin/non-STEMI/hypertension/SVT- The patient will be admitted to telemetry for serial cardiac enzymes, serial EKG's, cardiac rhythm monitoring and a 2-D echocardiogram with Dopplers. Assess for potential for SBE, pericarditis, myocarditis etc. Continue amlodipine, losartan and metoprolol succinate with hold parameters. Remaining orders and notations as noted. Resident Activity Tracking Resident Involvement: Resident Care Provided Care Provided: Adult [facility]
[2019-07-13] MEDS ORDERED: ACETAMINOPHEN 325 MG TAB PO PRN ×2 (00:38)
[2019-07-13] MEDS: SODIUM CHLORIDE 0.9% 1000ML 1,000 ML IV SCH ×2 (00:42→06:14)
[2019-07-13 04:34] LABS: Basophils # (auto) 0.03 K/uL (0-0.2); Basophils % (auto) 0.3 %; Eosinophils # (auto) 0.41 K/uL (0-0.5); Eosinophils % (auto) 4.3 %; Hematocrit (blood only) 38.2 % (37-47); Hemoglobin 12.8 g/dL (12.0-16.0); Immature Granulocytes # (auto) 0.05 K/uL (0.00-0.02); Immature Granulocytes % (auto) 0.5 %; Lymphocytes # (auto) 2.03 K/uL (1.2-3.4); Lymphocytes % (auto) 21.5 %; Mean Corpuscular Hemoglobin 28.3 pg (25-34); Mean Corpuscular Hgb Conc 33.5 g/dL (32-36); Mean Corpuscular Volume 84.3 fL (80-100); Mean Platelet Volume 10.1 fL (7.4-10.4); Monocytes # (auto) 0.75 K/uL (0.11-0.59); Monocytes % (auto) 7.9 %; Neutrophils # (auto) 6.19 K/uL (1.4-6.5); Neutrophils % (auto) 65.5 %; Platelet Count 210 K/uL (130-400); RDW Coefficient of Variation 14.5 % (11.5-14.5); RDW Standard Deviation 44.8 fL (36.4-46.3); Red Blood Count 4.53 M/uL (4.2-5.4); White Blood Count 9.46 K/uL (4.8-10.8)
[2019-07-13 04:57] LABS: Albumin Level 3.2 gm/dl (3.4-5.0); BUN Creatinine Ratio 19.2 (10-20); Calcium 8.3 mg/dl (8.5-10.1); Creatinine Clr Calc Pharmacy 53.7 ml/min; Est GFR (African American) 83.5; Potassium 3.7 mmol/L (3.5-5.1)
[2019-07-13 05:00] LABS: Albumin Globulin Ratio 0.8 (0.9-2); Bilirubin,Total 0.5 mg/dl (0.2-1); Globulin 3.9 gm/dl (2.5-4.0); Total Protein 7.1 gm/dl (6.4-8.2)
--- NOTE | 2019-07-13 07:33 | CT Scan Report ---
CT chest wo con CT DOSE: HISTORY: SoB, acute new oxygen requirement TECHNIQUE: Multiaxial CT images of the chest were performed without contrast. A dose lowering techni que was utilized adhering to the principles of ALARA. COMPARISON: None. FINDINGS: The lungs are clear. The mediastinal vascular structures are within normal limits. No media stinal or hilar lymphadenopathy. No pleural effusion or pneumothorax. Limited views of the upper abdo men demonstrate a normal liver and spleen. Slight nonspecific bilateral interstitial prominence. IMPRESSION: 1. Slight interstitial prominence throughout both hemithoraces. 2. Otherwise no acute process the chest. ACT 112: Negative or not required by law. The above report was generated using voice recognition software. It may contain grammatical, syntax or spelling errors. Electronically signed by: Sanjay Abrams M.D. 07/13/2019 7:32 AM
--- NOTE | 2019-07-13 07:35 | CT Scan Report ---
CT abd pelvis wo con CT DOSE: 2312.14 mGy.cm HISTORY: Pain. Nausea. RUQ pain + elevated alk phos TECHNIQUE: Multiaxial CT images of the abdomen and pelvis were performed without contrast. A dose lo wering technique was utilized adhering to the principles of ALARA. COMPARISON STUDY: None. FINDINGS: Slight basilar interstitial prominence. Configuration of liver spleen and pancreas are laura sly unremarkable. Several nonobstructing cortical calcification left kidney. No evidence for renal hydronephrosis. Nonobstructive bowel pattern. Atherosclerotic change of the abdominal and pelvic arterial vasculature . Postoperative changes to the right hip and right femur. IMPRESSION: No acute process. Incidental findings as noted. ACT 112: Negative or not required by law. The above report was generated using voice recognition software. It may contain grammatical, syntax or spelling errors. Electronically signed by: Sanjay Abrams M.D. 07/13/2019 7:34 AM
--- NOTE | 2019-07-13 07:45 | Electrocardiogram Report ---
Test Reason : Blood Pressure : / mmHG Vent. Rate : 076 BPM Atrial Rate : 076 BPM P-R Int : 160 ms QRS Dur : 074 ms QT Int : 406 ms P-R-T Axes : 051 016 -08 degrees QTc Int : 456 ms Normal sinus rhythm with sinus arrhythmia Low voltage QRS Nonspecific T wave abnormality Abnormal ECG When compared with ECG of 13-JUN-2018 05:09, Vent. rate has decreased BY 49 BPM T wave inversion no longer evident in Inferior leads Nonspecific T wave abnormality no longer evident in Lateral leads Confirmed by Kris Sommers ([id number]) on 07/13/2019 7:44:32 AM Referred By: REFERRED SELF Confirmed By:Kris Sommers
[2019-07-13] MEDS: THIAMINE HCL 100 MG TAB PO SCH (09:08)
[2019-07-13] MEDS: LOSARTAN POTASSIUM 50 MG TAB PO SCH (09:08)
[2019-07-13] MEDS: AMLODIPINE BESYLATE 5 MG TAB PO SCH (09:08)
[2019-07-13] MEDS: METOPROLOL SUCC 25MG EXT REL TAB PO SCH (09:09)
[2019-07-13] MEDS: ENOXAPARIN INJ 40 MG/0.4 ML SYR SQ SCH (09:09)
[2019-07-13] MEDS: CEROVITE ADV FORMULA TAB PO SCH (09:09)
[2019-07-13 09:33] LABS: Appearance Urine Cloudy (Clear); Bacteria Urine Automated 4+ (Negative); Bilirubin Urine Negative (Negative); Blood Urine Negative (Negative); Color Urine Yellow; Epithelial Cell Urine Auto >30 /lpf (0-5); Glucose Urine UA Negative (Negative); Ketones Urine Trace (Negative); Leukocyte Esterase Urine 1+ (Negative); Nitrite Urine Negative (Negative); Protein Urine Negative (Negative); Specific Gravity Urine 1.022 (1.000-1.030); Urobilinogen Urine Negative (Negative); pH Urine 5.5 (4.5-7.5)
[2019-07-13 09:50] LABS: RBC Urine Automated 0-4 /hpf (0-4)
[2019-07-13 10:02] LABS: Adenovirus PCR Not Detected (NotDetected); Bordetella parapertussis PCR Not Detected (NotDetected); Bordetella pertussis PCR Not Detected (NotDetected); Chlamydia pneumoniae PCR Not Detected (NotDetected); Coronavirus 229E PCR Not Detected (NotDetected); Coronavirus HKU1 PCR Not Detected (NotDetected); Coronavirus NL63 PCR Not Detected (NotDetected); Coronavirus OC43PCR Not Detected (NotDetected); Human Metapneumovirus PCR Not Detected (NotDetected); Influenza A PCR Not Detected (NotDetected); Influenza B PCR Not Detected (NotDetected); Mycoplasma pneumoniae PCR Not Detected (NotDetected); Parainfluenza Virus 1 PCR Not Detected (NotDetected); Parainfluenza Virus 2 PCR Not Detected (NotDetected); Parainfluenza Virus 3 PCR Not Detected (NotDetected); Parainfluenza Virus 4 PCR Not Detected (NotDetected); Respiratory Syncytial VirusPCR Not Detected (NotDetected); Rhinovirus/Enterovirus PCR Not Detected (NotDetected)
--- NOTE | 2019-07-13 13:16 | Ultrasound Report ---
US abdomen limited HISTORY: Pain. Nausea. Gallbladder, liver. COMPARISON: None. FINDINGS: Pancreas: The pancreas demonstrates a normal echotexture. Liver: Unremarkable. Gallbladder: No gallbladder wall thickening. No gallstones. CBD: 5 mm Right kidney: No hydronephrosis. IMPRESSION: No significant abnormality identified within the within the right upper quadrant. ACT 112: Negative or not required by law. The above report was generated using voice recognition software. It may contain grammatical, syntax or spelling errors. Electronically signed by: Sanjay Abrams M.D. 07/13/2019 1:15 PM
--- NOTE | 2019-07-13 14:46 | Hospitalist Progress Note ---
Date of Service July 13, 2019 Assessment & Plan (1) Dyspnea on exertion: Not entirely clear cause. Had some reported hypoxemia at [facility]; however, here she is 95% on room air. Does get short of breath with speaking or moving around the room. - BNP elevated to [address] chest on 07/12 showed interstitial prominence. - Will get echo (Last one in 06/2018 showed EF 60-65%, mild LVH, and Grade I diastolic dysfunction) - Will trial single low-dose Lasix PO to see if this improves her shortness of breath - Monitor Cr with gentle diuresis (2) Essential (primary) hypertension: BP is 125/70 today. - Continue home meds Admission and Anticipated Discharge Date Admission Date: July 12, 2019 Subjective She feels short of breath with speaking or moving still, though less so when just sitting and resting. Reports no fevers/chills, chest pain, abdominal pain, nausea, or vomiting. Physical Exam Constitutional: WD/WN, vitals as above Eyes: EOM intact bilaterally; no conjunctival abnormality ENMT: external ear and nose normal, oropharynx normal Neck: trachea midline, no thyromegaly normal visual inspection Respiratory: normal respiratory effort, lungs clear to auscultation no respiratory distress Cardiovascular: RRR, no murmur, no edema Gastrointestinal (Abdomen): Inspection/Auscultation: abdomen normal to inspection; abdomen not distended Musculoskeletal: no cyanosis or clubbing, extremities motor strength 5/5 Skin: no rashes, warm and dry Neurologic: moves all extremities and awake Psychiatric: Orientation: alert, oriented to person and cooperative Results & Data Results & Data ([facility]) Vital Signs (Past 12 Hours) Vital Signs Temp Pulse Resp BP Pulse Ox 07/13/19 11:51 36.9 C 71 16 125/69 93 07/13/19 08:00 36.5 C 82 18 111/76 97 07/13/19 04:44 36.4 C L 64 22 128/54 L 98 PG Care Time/CCT Total # of Minutes Spent Total Time Spent with Patient: Total time spent is greater than 50% in coordination of care (as documented) at patient's floor/unit and/or counseling patient: Coding Level of Care Code 04490 Subseq Hosp Care Lvl 2 Diagnoses Dyspnea on exertion R06.00 Essential (primary) hypertension I10
[2019-07-13] MEDS ORDERED: MENTHOL-ZINC OXIDE 360 APPLN/120 GM TUBE EXT PRN (17:04)
[2019-07-13] MEDS ORDERED: FUROSEMIDE 20 MG TAB PO STA (17:06)
[2019-07-13] MEDS: SERTRALINE HCL 50 MG TABLET PO SCH (20:42)
[2019-07-13] MEDS: MIRTAZAPINE TAB 15 MG TAB PO SCH (20:42)
[2019-07-13] MEDS: TAMSULOSIN HCL 0.4 MG CAP PO SCH (20:42)
--- NOTE | 2019-07-13 22:22 | Billing Data ---
Date of Service July 13, 2019 Coding Level of Care Code 48046 Initial Inpt Care Lvl 3
[2019-07-14 06:19] LABS: Hematocrit (blood only) 38.1 % (37-47); Hemoglobin 12.5 g/dL (12.0-16.0); Mean Corpuscular Hemoglobin 27.6 pg (25-34); Mean Corpuscular Hgb Conc 32.8 g/dL (32-36); Mean Corpuscular Volume 84.1 fL (80-100); Mean Platelet Volume 10.4 fL (7.4-10.4); Nucleated RBC # (auto) 0.04 K/uL (0-0); Nucleated RBC % (auto) 0.5 %; Platelet Count 233 K/uL (130-400); RDW Coefficient of Variation 14.4 % (11.5-14.5); Red Blood Count 4.53 M/uL (4.2-5.4); White Blood Count 7.92 K/uL (4.8-10.8)
[2019-07-14 06:54] LABS: BUN Creatinine Ratio 16.6 (10-20); Calcium 8.6 mg/dl (8.5-10.1); Creatinine Clr Calc Pharmacy 51.3 ml/min; Est GFR (African American) 79.7; Est GFR (Non-African American) 68.7
[2019-07-14] MEDS: ENOXAPARIN INJ 40 MG/0.4 ML SYR SQ SCH (08:30)
[2019-07-14] MEDS: LOSARTAN POTASSIUM 50 MG TAB PO SCH (08:31)
[2019-07-14] MEDS: THIAMINE HCL 100 MG TAB PO SCH (08:31)
[2019-07-14] MEDS: AMLODIPINE BESYLATE 5 MG TAB PO SCH (08:31)
[2019-07-14] MEDS: CEROVITE ADV FORMULA TAB PO SCH (08:32)
[2019-07-14] MEDS: METOPROLOL SUCC 25MG EXT REL TAB PO SCH (08:32)
--- NOTE | 2019-07-14 09:21 | XCELERA ---
[id number]
[2019-07-14] MEDS ORDERED: FUROSEMIDE 20 MG in SYRINGE 0 ML IV ONE (12:00)
--- NOTE | 2019-07-14 15:00 | Ultrasound Report ---
US venous doppler LE BI HISTORY: Pain. Edema. edema of legs COMPARISON STUDY: None. FINDINGS: Normal evaluation of the right leg. Venous flow is unremarkable. Left leg shows acute deep venous thrombosis within the popliteal posterior tibial and peroneal veins. IMPRESSION: 1. Normal venous Doppler right leg. 2. Acute deep venous thrombosis left leg. ACT 112: Negative or not required by law. The above report was generated using voice recognition software. It may contain grammatical, syntax or spelling errors. Electronically signed by: Sanjay Abrams M.D. 07/14/2019 2:59 PM
--- NOTE | 2019-07-14 16:12 | Hospitalist Progress Note ---
Date of Service July 14, 2019 Assessment & Plan (1) Dyspnea on exertion: To date the following have been negative - * biofire respiratory panel * COVID-19 * chest x-ray * CT chest except for minimal interstitial prominence * echo is largely normal Yesterday was given lasix to see if some of her symptoms were due to pulmonary edema. Reported feeling some better today. I gave an additional dose of lasix IV today. Concurrently I also sent her for LE dopplers of the legs to r/o DVT. LLE doppler + for DVT. Thus, she could have PEs as the cause of her dyspnea. Will need CTA chest to exclude such. While waiting for CTA chest -- lovenox 1mg/kg BID. (2) DVT (deep venous thrombosis): LLE. Suspect due to sedentary lifestyle in the midst of lockdown/isolation from COVID-19. Start lovenox 1mg/kg BID. Good candidate for novel agent (xarelto, eliquis if cost is not prohibitive). Check CTA chest -- r/o PE given her dyspnea. (3) Essential (primary) hypertension: Cont home meds (4) SVT (supraventricular tachycardia): a tach seen on tele overnight then, this am, had run of irregular narrow complex tachycardia; cannot r/o PAF either way she remains on beta ute and will be on anticoagulation (5) Obesity (BMI 30.0-34.9): BMI 34 I certify that the inpatient services were ordered in accordance with Medicare regulations governing the order. This includes certification that hospital inpatient services are reasonable and necessary and in the case of services not specified as inpatient-only under 42 CFR 419.22(n), that they are appropriately provided as inpatient services in accordance to with the 2-midnight benchmark under 43 CFR 412.3(e) Change observation status to full admission status Admission and Anticipated Discharge Date Admission Date: July 12, 2019 Subjective tele overnight - a.tach (brief run, seconds in duration); NSR, PACs. during my visit she was sitting near the window comfortably. stated she is still having dyspnea on exertion but it is a little better. denies any cough. no fevers. excellent appetite. no dyspnea at rest. has been having abdominal bloating and LE edema - worse recently. Review of Systems Constitutional: no fever, no chills, no fatigue and no anorexia Respiratory: no cough, no hemoptysis and no wheezing Cardiovascular: + edema; no chest pain, no orthopnea and no paroxysmal nocturnal dyspnea Gastrointestinal: + bloating; no abdominal pain, no nausea and no vomiting Physical Exam Constitutional: well developed, well nourished and + obese; no acute distress and no altered mental status ENMT: external ear and nose normal, oropharynx normal Respiratory: Auscultation: + rales (fine, bases, very mild ) Cardiovascular: Rate/Rhythm: regular rate and regular rhythm Heart Sounds: normal S1 and normal S2; no murmur Vessels: + JVD (mild), posterior tibial pulses present and dorsalis pedis pulses present Extremities: + edema (<1+ on right; 1-2+ on left) Gastrointestinal (Abdomen): normal bowel sounds, soft, nontender, no hepatosplenomegaly Inspection/Auscultation: + abdomen distended (mild) Psychiatric: A+Ox3, euthymic affect Results & Data Results & Data ([facility]) Vital Signs (Past 12 Hours) Vital Signs Temp Pulse Pulse Resp BP Pulse Ox 07/14/19 11:19 36.9 C 62 18 123/67 95 07/14/19 07:00 68 Laboratory Results Laboratory Results - last 24 hr 07/14/19 07/14/19 06:01 06:01 WBC 7.92 RBC 4.53 Hgb 12.5 Hct 38.1 MCV 84.1 MCH 27.6 MCHC 32.8 RDW Std Deviation 44.0 RDW Coeff of Ranjana 14.4 Plt Count 233 MPV 10.4 Absolute Nucleated RBC 0.04 H Nucleated RBC % (auto) 0.5 Sodium 138 Potassium Chloride 107 Carbon Dioxide 23 Anion Gap 8.0 BUN 13 Creatinine 0.79 Est Cr Clr Drug Dosing 51.3 Est GFR ( Amer) 79.7 Est GFR (Non-Af Amer) 68.7 BUN/Creatinine Ratio 16.6 Glucose 124 H Calcium 8.6 Magnesium NT-Pro-B Natriuret Pep 1212 PG Care Time/CCT Total # of Minutes Spent Total Time Spent with Patient: Total time spent is greater than 50% in coordination of care (as documented) at patient's floor/unit and/or counseling patient: Coding Level of Care Code 45430 Subseq Hosp Care Lvl 3 Diagnoses Dyspnea on exertion R06.00 DVT (deep venous thrombosis) I82.402 DVT location: lower extremity Affected thrombotic vein of extremity: unspecified vein of extremity Chronicity: acute Laterality: left Essential (primary) hypertension I10 SVT (supraventricular tachycardia) I47.1 Obesity (BMI 30.0-34.9) E66.9 (1) DVT (deep venous thrombosis) DVT location: lower extremity Affected thrombotic vein of extremity: unspecified vein of extremity Chronicity: acute Laterality: left Qualified Code(s): I82.402 - Acute embolism and thrombosis of unspecified deep veins of left lower extremity
[2019-07-14] MEDS: cephALEXin 500 MG CAP PO SCH ×2 (17:40→20:20)
[2019-07-14] MEDS ORDERED: OPTIRAY 320 125ml IV PRN (18:12)
--- NOTE | 2019-07-14 19:58 | CT Scan Report ---
CT ANGIOGRAM OF THE CHEST CLINICAL HISTORY: Shortness of breath, DVT. Possible pulmonary embolism. COMPARISON STUDY: Noncontrast chest CT dated 07/12/2019 TECHNIQUE: Following the IV administration of 116 mL of Optiray-320, CT angiogram of the thorax was p erformed from the thoracic inlet to the lung bases utilizing the pulmonary embolus protocol. Images a re reviewed in the axial, sagittal, and coronal planes. IV contrast was administered without complica tion. MIP imaging was performed. A dose lowering technique was utilized adhering to the principles o f ALARA. CT DOSE: 858.26 mGy.cm FINDINGS: No pathologically enlarged axillary mediastinal or hilar lymph nodes were visualized. There was no evidence of thoracic aortic dilatation. There are bilateral pulmonary artery filling defects, most pronounced within the left main pulmonary artery and proximal left upper lobe and left lower lobe arteries No pleural effusions are visualized. There is respiratory motion artifact. There is no focal pulmonary consolidation. There is mild elevation right hemidiaphragm. There is mild thickening of an accessory right lung fiss ure. IMPRESSION: 1. Acute pulmonary embolism with moderate left pulmonary artery thrombus burden. ACT 112: Negative or not required by law. Electronically signed by: Kaden Duron M.D. 07/14/2019 7:57 PM
[2019-07-14] MEDS ORDERED: ENOXAPARIN 80 MG/0.8 ML SYR SQ SCH (20:00)
[2019-07-14] MEDS: TAMSULOSIN HCL 0.4 MG CAP PO SCH (20:20)
[2019-07-14] MEDS: MIRTAZAPINE TAB 15 MG TAB PO SCH (20:21)
[2019-07-14] MEDS: SERTRALINE HCL 50 MG TABLET PO SCH (20:21)
--- NOTE | 2019-07-14 20:25 | Communication Note ---
Date of Service: July 14, 2019 CT-Chest returned acute pulmonary embolism with moderate left pulmonary artery thrombus burden. Patient pending lovenox for DVT. Discussed with attending syed galo, held pending enoxaparin 1mpk dose and started on heparin gtt + bolus overnight for acute PE treatment.
[2019-07-14] MEDS ORDERED: HEPARIN IV BOLUS 5,000 UNITS in SYRINGE 0 ML IV ONE (22:00)
[2019-07-14] MEDS: HEPARIN SODIUM/DEXTROSE 25,000 UNITS/500 ML BAG IV SCH (22:06)
[2019-07-15 04:32] LABS: BUN Creatinine Ratio 19.6 (10-20); Creatinine Clr Calc Pharmacy 46.6 ml/min; Est GFR (African American) 70.9; Est GFR (Non-African American) 61.2
[2019-07-15 04:33] LABS: Partial Thromboplastin Ratio 2.5
[2019-07-15 04:56] LABS: Partial Thromboplastin Time 69.5 Seconds (21.0-31.0)
[2019-07-15 06:16] LABS: Hemoglobin 12.1 g/dL (12.0-16.0); Mean Corpuscular Hemoglobin 27.6 pg (25-34); Mean Corpuscular Hgb Conc 33.6 g/dL (32-36); Mean Corpuscular Volume 82.2 fL (80-100); Platelet Count 265 K/uL (130-400); Red Blood Count 4.38 M/uL (4.2-5.4); White Blood Count 9.46 K/uL (4.8-10.8)
[2019-07-15] MEDS: LOSARTAN POTASSIUM 50 MG TAB PO SCH (07:54)
[2019-07-15] MEDS: THIAMINE HCL 100 MG TAB PO SCH (07:54)
[2019-07-15] MEDS: METOPROLOL SUCC 25MG EXT REL TAB PO SCH (07:54)
[2019-07-15] MEDS: AMLODIPINE BESYLATE 5 MG TAB PO SCH (07:54)
[2019-07-15] MEDS: cephALEXin 500 MG CAP PO SCH ×2 (07:54→20:44)
[2019-07-15] MEDS: CEROVITE ADV FORMULA TAB PO SCH (07:54)
[2019-07-15 11:39] LABS: Partial Thromboplastin Ratio 2.3
[2019-07-15 12:03] LABS: Partial Thromboplastin Time 64.1 Seconds (21.0-31.0)
--- NOTE | 2019-07-15 13:23 | Hospitalist Progress Note ---
Date of Service July 15, 2019 Assessment & Plan (1) Pulmonary emboli: left-sided PEs with LLE DVT. likely the main reason for presenting dyspnea at admission. unfortunately does not have Medicare Part D coverage thus novel agent is not possible due to cost. also, [facility] cannot accommodate use of lovenox. thus, our only option is heparin drip with coumadin. cont heparin; start coumadin today - 7.5mg - PTT and INR in am. supportive care/O2 as needed. I believe extremely sedentary lifestyle and isolation at the [facility] led to immobility and hence the VTE. no recent surgery or travel. no obvious COVID disease. (2) DVT (deep venous thrombosis): LLE. Suspect due to sedentary lifestyle in the midst of lockdown/isolation from COVID-19. Heparin w/ coumadin. See PE above. (3) Fever: likely 2nd to DVT/PE. biofire panel negative at admission. COVID-19 negative at admission. does have UTI but received rocephin previously followed by keflex thus doubt ongoing fever is from UTI. blood cultures negative. (4) Dyspnea on exertion: To date the following have been negative - * biofire respiratory panel * COVID-19 * chest x-ray * echo is largely normal CTA chest POSITIVE for PEs which is likely the main reason for dyspnea. I also believe she has mild volume overload/pulm edema- see below. Today she had wheezing - uncertain if this was from pulm edema or other cause (silent aspiration? other?). cont to treat PEs. cont to diurese. (5) Acute diastolic (congestive) heart failure: s/p 2 days of lasix with improving edema and symptoms. will give lasix 20mg IV x 1 again today. (6) Essential (primary) hypertension: Cont home meds (7) SVT (supraventricular tachycardia): a tach seen on tele this admission ?PAF run as well either way will be on beta ute and anticoagulation (8) UTI (urinary tract infection): received rocephin IV x 2 doses; now on keflex 500mg BID x 5 additional days (9) Exposure to COVID-19 virus: multiple cases of COVID-[address] [facility] living [facility] in June patient did not have obvious COVID disease but son states patient has been short of breath for 1-2 months uncertain if patient could have had unrecognized COVID illness her COVID PCR was negative this admission there may be value in checking COVID IgG antibody test will check this in the am son, Vinny, updated on 07/13 and 07/14 consult PT and OT Admission and Anticipated Discharge Date Admission Date: July 14, 2019 Subjective sitting in chair by bed today. had audible wheezing. she said "I've been getting like this for some time" (could not estimate exact time amount). no h/o asthma/COPD. no chest pain. feels a bit better than yesterday. good appetite still. had chills last night when she had fever but no fever/chills today. we discussed anticoagulation for DVT and PEs and that heparin would be used for bridge while coumadin is initiated. Review of Systems Constitutional: + fever and + chills Respiratory: + cough (Occasional ) and + wheezing Cardiovascular: no chest pain Gastrointestinal: + abdominal pain (Epigastric - very mild - not worsened by eating ) Physical Exam Constitutional: well developed, well nourished and + obese; no acute distress and no altered mental status ENMT: external ear and nose normal, oropharynx normal Respiratory: Auscultation: + rales (fine, bases, very mild ) and + wheezes (Occasional) Cardiovascular: Rate/Rhythm: regular rate and regular rhythm Heart Sounds: normal S1 and normal S2; no murmur Vessels: + JVD (mild), posterior tibial pulses present and dorsalis pedis pulses present Extremities: + edema (<1+ on right; 1-2+ on left) Gastrointestinal (Abdomen): Inspection/Auscultation: + abdomen distended (m ild) and normal bowel sounds Percussion/Palpation: + abdomen tender (Mild - epigastric area ) and abdomen soft; no hepatosplenomegaly Psychiatric: A+Ox3, euthymic affect Results & Data Results & Data ([facility]) Vital Signs (Past 12 Hours) Vital Signs Temp Pulse Pulse Resp BP Pulse Ox 07/15/19 11:15 36.7 C 75 20 118/73 91 07/15/19 08:00 81 07/15/19 07:48 37.3 C 80 20 124/69 90 07/15/19 03:13 37.2 C 82 19 122/73 90 Laboratory Results Laboratory Results - last 24 hr 07/15/19 07/15/19 07/15/19 04:00 04:00 04:00 WBC Cancelled RBC Cancelled Hgb Cancelled Hct Cancelled MCV Cancelled MCH Cancelled MCHC Cancelled RDW Std Deviation Cancelled RDW Coeff of Ranjana Cancelled Plt Count Cancelled MPV Cancelled Absolute Nucleated RBC Cancelled Nucleated RBC % (auto) Cancelled Platelet Estimate Cancelled APTT 69.5 H* PTT Ratio 2.5 Sodium 137 Potassium 4.0 Chloride 107 Carbon Dioxide 22 Anion Gap 8.0 BUN 17 Creatinine 0.87 Est Cr Clr Drug Dosing 46.6 Est GFR ( Amer) 70.9 Est GFR (Non-Af Amer) 61.2 BUN/Creatinine Ratio 19.6 Glucose 156 H Calcium 8.0 L 07/15/19 07/15/19 05:16 11:04 WBC 9.46 RBC 4.38 Hgb 12.1 Hct 36.0 L MCV 82.2 MCH 27.6 MCHC 33.6 RDW Std Deviation RDW Coeff of Ranjana Plt Count 265 MPV Absolute Nucleated RBC Nucleated RBC % (auto) Platelet Estimate APTT 64.1 H* PTT Ratio 2.3 Sodium Potassium Chloride Carbon Dioxide Anion Gap BUN Creatinine Est Cr Clr Drug Dosing Est GFR ( Amer) Est GFR (Non-Af Amer) BUN/Creatinine Ratio Glucose Calcium PG Care Time/CCT Total # of Minutes Spent Total Time Spent with Patient: Total time spent is greater than 50% in coordination of care (as documented) at patient's floor/unit and/or counseling patient: Coding Level of Care Code 59979 Subseq Hosp Care Lvl 3 Diagnoses Pulmonary emboli I26.99 Acute cor pulmonale presence: without acute cor pulmonale Chronicity: acute Pulmonary embolism type: unspecified DVT (deep venous thrombosis) I82.402 Affected thrombotic vein of extremity: unspecified vein of extremity Chronicity: acute DVT location: lower extremity Laterality: left Fever R50.9 Fever type: unspecified Dyspnea on exertion R06.00 Acute diastolic (congestive) heart failure I50.31 Essential (primary) hypertension I10 SVT (supraventricular tachycardia) I47.1 UTI (urinary tract infection) N30.00 Urinary tract infection type: acute cystitis Hematuria presence: without hematuria Exposure to COVID-19 virus Z20.828 (1) UTI (urinary tract infection) Urinary tract infection type: acute cystitis Hematuria presence: without hematuria Qualified Code(s): N30.00 - Acute cystitis without hematuria (2) Fever Fever type: unspecified Qualified Code(s): R50.9 - Fever, unspecified (3) DVT (deep venous thrombosis) Affected thrombotic vein of extremity: unspecified vein of extremity Chronicity: acute DVT location: lower extremity Laterality: left Qualified Code(s): I82.402 - Acute embolism and thrombosis of unspecified deep veins of left lower extremity (4) Pulmonary emboli Acute cor pulmonale presence: without acute cor pulmonale Chronicity: acute Pulmonary embolism type: unspecified Qualified Code(s): I26.99 - Other pulmonary embolism without acute cor pulmonale
[2019-07-15] MEDS ORDERED: FUROSEMIDE 20 MG in SYRINGE 0 ML IV ONE (14:00)
[2019-07-15] MEDS ORDERED: WARFARIN SOD 7.5 MG TAB PO ONE (16:00)
[2019-07-15] MEDS: SERTRALINE HCL 50 MG TABLET PO SCH (20:44)
[2019-07-15] MEDS: MIRTAZAPINE TAB 15 MG TAB PO SCH (20:44)
[2019-07-15] MEDS: TAMSULOSIN HCL 0.4 MG CAP PO SCH (20:44)
[2019-07-15] MEDS: HEPARIN SODIUM/DEXTROSE 25,000 UNITS/500 ML BAG IV SCH (21:56)
[2019-07-16 07:29] LABS: INR 1.1 (0.9-1.1); Partial Thromboplastin Ratio 1.9; Prothrombin Time 11.4 Seconds (9.0-12.0)
--- NOTE | 2019-07-16 07:31 | XRay Report ---
XR chest 1V portable CLINICAL HISTORY: Wheezing COMPARISON STUDY: 07/12/2019 FINDINGS: The cardiac and mediastinal contours remain stable. There is no lobar consolidation. There is no failure. There are no pleural effusions. Linear opacities within the right midlung zone likely represents subsegmental atelectasis[ IMPRESSION: No active disease in the chest. ACT 112: Negative or not required by law. Electronically signed by: Kaden Duron M.D. 07/16/2019 7:30 AM
[2019-07-16 07:43] LABS: BUN Creatinine Ratio 20.7 (10-20); Calcium 8.5 mg/dl (8.5-10.1); Creatinine Clr Calc Pharmacy 44.5 ml/min; Est GFR (African American) 66.3; Est GFR (Non-African American) 57.2; Potassium 3.3 mmol/L (3.5-5.1)
[2019-07-16 07:46] LABS: Partial Thromboplastin Time 52.1 Seconds (21.0-31.0)
[2019-07-16] MEDS ORDERED: POTASSIUM CHLORIDE 20 MEQ TABCR PO ONE (08:15)
[2019-07-16] MEDS: cephALEXin 500 MG CAP PO SCH ×2 (08:24→21:38)
[2019-07-16] MEDS: LOSARTAN POTASSIUM 50 MG TAB PO SCH (08:25)
[2019-07-16] MEDS: METOPROLOL SUCC 25MG EXT REL TAB PO SCH (08:25)
[2019-07-16] MEDS: THIAMINE HCL 100 MG TAB PO SCH (08:27)
[2019-07-16] MEDS: AMLODIPINE BESYLATE 5 MG TAB PO SCH (08:27)
[2019-07-16] MEDS: CEROVITE ADV FORMULA TAB PO SCH (08:27)
--- NOTE | 2019-07-16 14:32 | Hospitalist Progress Note ---
Date of Service July 16, 2019 Assessment & Plan (1) Pulmonary emboli: left-sided PEs with LLE DVT. likely the main reason for presenting dyspnea at admission. unfortunately does not have Medicare Part D coverage thus novel agent is not possible due to cost. also, [facility] cannot accommodate use of lovenox. thus, our only option is heparin drip with coumadin. cont heparin; first dose of coumadin was 7.5mg on 07/14; will give another dose of 7.5mg today. repeat PTT and INR in am. based on INR tomorrow and rise this will dictate next dose on 07/16. oncoming attending physician - please be sure to REDOSE THE COUMADIN ON 07/16. supportive care/O2 as needed. I believe extremely sedentary lifestyle and isolation at the [facility] led to immobility and hence the VTE. no recent surgery or travel. no obvious COVID disease. (2) DVT (deep venous thrombosis): LLE. Suspect due to sedentary lifestyle in the midst of lockdown/isolation from COVID-19. Heparin w/ coumadin. See PE above. (3) Fever: likely 2nd to DVT/PE. biofire panel negative at admission. COVID-19 negative at admission. does have UTI but received rocephin previously followed by keflex thus doubt ongoing fever is from UTI. blood cultures negative. continue to monitor. (4) Dyspnea on exertion: acute on chronic. acute - PEs +/- diastolic CHF. chronic - etiology uncertain. To date the following have been negative - * biofire respiratory panel * COVID-19 * chest x-ray * echo is largely normal CTA chest POSITIVE for PEs which is likely the main reason for dyspnea. I also believe she has mild volume overload/pulm edema- have given multiple doses of IV/PO lasix. She has had an intermittent wheeze - she reports ongoing for a year or more. No prior dx of COPD, asthma, etc. Uncertain if the wheezing is from pulm edema or other cause (silent aspiration? other?). cont to treat PEs. will give another dose of PO lasix today. add combivent 1 puff QID as well. if "wheezing" persists consider outpatient PFTs. (5) Acute diastolic (congestive) heart failure: s/p 3 days of lasix IV/PO with improving edema and symptoms. will give lasix 20mg PO x 1 again today. re-eval tomorrow. (6) Essential (primary) hypertension: Cont home meds (7) SVT (supraventricular tachycardia): a tach seen on tele this admission ?PAF run as well either way will be on beta ute and anticoagulation (8) UTI (urinary tract infection): received rocephin IV x 2 doses; now on keflex 500mg BID x 5 additional days (9) Chronic kidney disease, stage 3a: baseline CrCL 40s/50s BMP am (10) Exposure to COVID-19 virus: multiple cases of COVID-[address] [facility] living [facility] in June patient did not have obvious COVID disease but son states patient has been short of breath for 1-2 months uncertain if patient could have had unrecognized COVID illness her COVID PCR was negative this admission there may be value in checking COVID IgG antibody test this has been sent and is pending sonVinny, updated on 07/13 and 07/14 consulted PT and OT Admission and Anticipated Discharge Date Admission Date: July 14, 2019 Subjective patient had low-grade fever overnight with some chills. these have not recurred. she felt good during my bedside rounds. appetite still good. occasionally still hearing "wheezing" which she states is chronic (for at least 1 year?). has never been dx with COPD or asthma, and has never taken inhalers/neb treatments. LE edema is improved. denies orthopnea. Review of Systems Constitutional: + fever and + chills; no fatigue and no anorexia Respiratory: + dyspnea on exertion and + wheezing; no cough Cardiovascular: no chest pain Gastrointestinal: + bloating; no abdominal pain, no nausea and no vomiting Physical Exam Constitutional: well developed, well nourished and + obese; no acute distress and no altered mental status ENMT: external ear and nose normal, oropharynx normal Respiratory: Auscultation: + rales (fine, bases, very mild ) and + wheezes (Occasionally, and only when she purses her lips with breathing) Cardiovascular: Rate/Rhythm: regular rate and regular rhythm Heart Sounds: normal S1 and normal S2; no murmur Vessels: + JVD (mild), posterior tibial pulses present and dorsalis pedis pulses present Extremities: + edema (<1+ on right; 1+ left ) Gastrointestinal (Abdomen): normal bowel sounds, soft, nontender, no hepatosplenomegaly Inspection/Auscultation: + abdomen distended (mild) and normal bowel sounds Percussion/Palpation: abdomen soft; abdomen nontender and no hepatosplenomegaly Psychiatric: A+Ox3, euthymic affect Results & Data Results & Data ([facility]) Vital Signs (Past 12 Hours) Vital Signs Temp Pulse Pulse Resp BP Pulse Ox 07/16/19 12:45 97 07/16/19 07:36 36.7 C 57 L 80 18 130/76 95 07/16/19 05:30 37.2 C 07/16/19 03:35 90 07/16/19 03:14 37.7 C H 81 18 131/76 89 L Laboratory Results Laboratory Results - last 24 hr 07/16/19 07/16/19 07/16/19 06:41 06:41 06:41 PT 11.4 INR 1.1 APTT 52.1 H* PTT Ratio 1.9 Sodium 135 L Potassium 3.3 L D Chloride 104 Carbon Dioxide 24 Anion Gap 7.0 BUN 19 H Creatinine 0.92 Est Cr Clr Drug Dosing 44.5 Est GFR ( Amer) 66.3 Est GFR (Non-Af Amer) 57.2 BUN/Creatinine Ratio 20.7 H Glucose 130 H Calcium 8.5 SARS Serology Pending PG Care Time/CCT Total # of Minutes Spent Total Time Spent with Patient: Total time spent is greater than 50% in coordination of care (as documented) at patient's floor/unit and/or counseling patient: Coding Level of Care Code 40124 Subseq Hosp Care Lvl 3 Diagnoses Pulmonary emboli I26.99 Acute cor pulmonale presence: without acute cor pulmonale Chronicity: acute Pulmonary embolism type: unspecified DVT (deep venous thrombosis) I82.402 Affected thrombotic vein of extremity: unspecified vein of extremity Chronicity: acute DVT location: lower extremity Laterality: left Fever R50.9 Fever type: unspecified Dyspnea on exertion R06.00 Acute diastolic (congestive) heart failure I50.31 Essential (primary) hypertension I10 SVT (supraventricular tachycardia) I47.1 UTI (urinary tract infection) N30.00 Hematuria presence: without hematuria Urinary tract infection type: acute cystitis Chronic kidney disease, stage 3a N18.3 Exposure to COVID-19 virus Z20.828 (1) UTI (urinary tract infection) Hematuria presence: without hematuria Urinary tract infection type: acute cystitis Qualified Code(s): N30.00 - Acute cystitis without hematuria (2) Fever Fever type: unspecified Qualified Code(s): R50.9 - Fever, unspecified (3) DVT (deep venous thrombosis) Affected thrombotic vein of extremity: unspecified vein of extremity Chronicity: acute DVT location: lower extremity Laterality: left Qualified Code(s): I82.402 - Acute embolism and thrombosis of unspecified deep veins of left lower extremity (4) Pulmonary emboli Acute cor pulmonale presence: without acute cor pulmonale Chronicity: acute Pulmonary embolism type: unspecified Qualified Code(s): I26.99 - Other pulmonary embolism without acute cor pulmonale
[2019-07-16] MEDS ORDERED: FUROSEMIDE 20 MG TAB PO ONE (15:00)
[2019-07-16] MEDS ORDERED: IPRATROPIUM BROMIDE/ALBUTEROL respimat INH INH SCH (15:00)
[2019-07-16] MEDS ORDERED: WARFARIN SOD 7.5 MG TAB PO ONE (16:00)
[2019-07-16] MEDS: MIRTAZAPINE TAB 15 MG TAB PO SCH (21:28)
[2019-07-16] MEDS: TAMSULOSIN HCL 0.4 MG CAP PO SCH (21:29)
[2019-07-16] MEDS: HEPARIN SODIUM/DEXTROSE 25,000 UNITS/500 ML BAG IV SCH (21:31)
[2019-07-16] MEDS: SERTRALINE HCL 50 MG TABLET PO SCH (21:31)
[2019-07-16] MEDS: ALBUTEROL HFA 8 GM INHALER INH SCH (21:34)
[2019-07-16] MEDS: IPRATROPIUM BROMIDE HFA INHALER INH SCH (21:34)
[2019-07-16] MEDS ORDERED: ALBUT/IPRATROP 3MG/0.5MG NEB 3 ML VIAL NEB PRN (22:19)
[2019-07-17 06:34] LABS: INR 1.5 (0.9-1.1); Prothrombin Time 15.1 Seconds (9.0-12.0)
[2019-07-17 06:37] LABS: Partial Thromboplastin Time 56.4 Seconds (21.0-31.0)
[2019-07-17 06:55] LABS: BUN Creatinine Ratio 22.7 (10-20); Calcium 8.3 mg/dl (8.5-10.1); Creatinine Clr Calc Pharmacy 49.9 ml/min; Est GFR (African American) 75.1; Est GFR (Non-African American) 64.8
[2019-07-17] MEDS: ALBUTEROL HFA 8 GM INHALER INH SCH ×4 (07:21→20:04)
[2019-07-17] MEDS: IPRATROPIUM BROMIDE HFA INHALER INH SCH ×4 (07:22→20:04)
[2019-07-17] MEDS: METOPROLOL SUCC 25MG EXT REL TAB PO SCH (08:12)
[2019-07-17] MEDS: THIAMINE HCL 100 MG TAB PO SCH (08:13)
[2019-07-17] MEDS: AMLODIPINE BESYLATE 5 MG TAB PO SCH (08:13)
[2019-07-17] MEDS: CEROVITE ADV FORMULA TAB PO SCH (08:15)
[2019-07-17] MEDS: LOSARTAN POTASSIUM 50 MG TAB PO SCH (08:15)
[2019-07-17] MEDS: cephALEXin 500 MG CAP PO SCH ×2 (08:16→20:53)
[2019-07-17 08:17] LABS: Hematocrit (blood only) 24.1 % (37-47); Hemoglobin 9.3 g/dL (12.0-16.0); Mean Corpuscular Hemoglobin 35.9 pg (25-34); Mean Corpuscular Hgb Conc 38.6 g/dL (32-36); Mean Corpuscular Volume 93.1 fL (80-100); Mean Platelet Volume 9.9 fL (7.4-10.4); Platelet Count 264 K/uL (130-400); RDW Coefficient of Variation 18.4 % (11.5-14.5); RDW Standard Deviation 44.7 fL (36.4-46.3); Red Blood Count 2.59 M/uL (4.2-5.4); White Blood Count 8.65 K/uL (4.8-10.8)
--- NOTE | 2019-07-17 17:20 | Hospitalist Progress Note ---
Date of Service July 17, 2019 Assessment & Plan (1) Pulmonary emboli: left-sided PEs with LLE DVT. likely the main reason for presenting dyspnea at admission. unfortunately does not have Medicare Part D coverage thus novel agent is not possible due to cost. also, [facility] cannot accommodate use of lovenox. thus, our only option is heparin drip with coumadin. cont heparin; first dose of coumadin was 7.5mg on 07/14; same on 07/15 INR increased to 1.5, will redose at 7.5 again today supportive care/O2 as needed. I believe extremely sedentary lifestyle and isolation at the [facility] in the setting of COVID led to immobility and hence the VTE. no recent surgery or travel. COVID neg 07/11 (2) DVT (deep venous thrombosis): LLE. Suspect due to sedentary lifestyle in the midst of lockdown/isolation from COVID-19. Heparin w/ coumadin. See PE above. (3) Fever: likely 2nd to DVT/PE. biofire panel negative at admission. COVID-19 negative at admission. does have UTI but received rocephin previously followed by kevon thus doubt ongoing fever is from UTI. blood cultures negative. continue to monitor. (4) Dyspnea on exertion: acute on chronic. acute - PEs +/- diastolic CHF. chronic - etiology uncertain. To date the following have been negative - * biofire respiratory panel * COVID-19 * chest x-ray * echo is largely normal CTA chest POSITIVE for PEs which is likely the main reason for dyspnea. I also believe she has mild volume overload/pulm edema- have given multiple doses of IV/PO lasix. She has had an intermittent wheeze - she reports ongoing for a year or more. No prior dx of COPD, asthma, etc. Uncertain if the wheezing is from pulm edema or other cause (silent aspiration? other?). cont to treat PEs. will give another dose of PO lasix today. add combivent 1 puff QID as well. if "wheezing" persists consider outpatient PFTs. (5) Acute diastolic (congestive) heart failure: s/p 3 days of lasix IV/PO with improving edema and symptoms. using lasix 20mg PO PRN, hold today Monitor (6) Essential (primary) hypertension: Cont home meds (7) SVT (supraventricular tachycardia): a tach seen on tele this admission ?PAF run as well either way will be on beta ute and anticoagulation (8) UTI (urinary tract infection): received rocephin IV x 2 doses; now on keflex 500mg BID x 5 additional days (9) Chronic kidney disease, stage 3a: baseline CrCL 40s/50s BMP am (10) Exposure to COVID-19 virus: multiple cases of COVID-[address] [facility] in June patient did not have obvious COVID disease but son states patient has been short of breath for 1-2 months uncertain if patient could have had unrecognized COVID illness her COVID PCR was negative this admission there may be value in checking COVID IgG antibody test this has been sent and is pending PT/OT recs for SNF, CM d/w son and working on placement Admission and Anticipated Discharge Date Admission Date: July 14, 2019 Subjective Pt feeling overall improved. She has not SOB or chest pain. Eating without issue. Pt denies fever, SOB, chest pain, abd pain, n/v/c/d, LE pain or swelling. Review of Systems Review of Systems: Pertinent positives and negatives reviewed in HPI--all others negative Physical Exam Constitutional: WD/WN, vitals as above Eyes: normal visual [place] by confrontation and + anicteric sclerae Neck: normal visual inspection and trachea midline Respiratory: normal respiratory effort, lungs clear to auscultation Cardiovascular: Rate/Rhythm: regular rate and regular rhythm Gastrointestinal (Abdomen): Inspection/Auscultation: abdomen not distended Percussion/Palpation: abdomen soft; abdomen nontender Musculoskeletal: Head/Neck/Chest: normocephalic and head atraumatic negative for edema, peripheral pulses intact Skin: no rashes, warm and dry Neurologic: awake; not confused Speech / Cognition: normal speech Psychiatric: A+Ox3, euthymic affect Results & Data Results & Data ([facility]) Vital Signs (Past 12 Hours) Vital Signs Temp Pulse Pulse Resp BP Pulse Ox 07/17/19 16:00 36.9 C 74 18 112/68 93 07/17/19 15:10 74 18 92 07/17/19 15:00 91 07/17/19 12:05 36.6 C 64 20 109/71 92 07/17/19 08:03 36.8 C 79 18 125/73 90 07/17/19 07:27 71 07/17/19 05:57 81 PG Care Time/CCT Total # of Minutes Spent Total Time Spent with Patient: Total time spent is greater than 50% in coordination of care (as documented) at patient's floor/unit and/or counseling patient: Coding Level of Care Code 00777 Subseq Hosp Care Lvl 3 Diagnoses Pulmonary emboli I26.99 Pulmonary embolism type: unspecified Chronicity: acute Acute cor pulmonale presence: without acute cor pulmonale DVT (deep venous thrombosis) I82.402 DVT location: lower extremity Affected thrombotic vein of extremity: unspecified vein of extremity Chronicity: acute Laterality: left Fever R50.9 Fever type: unspecified Dyspnea on exertion R06.00 Acute diastolic (congestive) heart failure I50.31 Essential (primary) hypertension I10 SVT (supraventricular tachycardia) I47.1 UTI (urinary tract infection) N30.00 Urinary tract infection type: acute cystitis Hematuria presence: without hematuria Chronic kidney disease, stage 3a N18.3 Exposure to COVID-19 virus Z20.828 (1) Pulmonary emboli Pulmonary embolism type: unspecified Chronicity: acute Acute cor pulmonale presence: without acute cor pulmonale Qualified Code(s): I26.99 - Other pulmonary embolism without acute cor pulmonale (2) DVT (deep venous thrombosis) DVT location: lower extremity Affected thrombotic vein of extremity: unspecified vein of extremity Chronicity: acute Laterality: left Qualified Code(s): I82.402 - Acute embolism and thrombosis of unspecified deep veins of left lower extremity (3) Fever Fever type: unspecified Qualified Code(s): R50.9 - Fever, unspecified (4) UTI (urinary tract infection) Urinary tract infection type: acute cystitis Hematuria presence: without hematuria Qualified Code(s): N30.00 - Acute cystitis without hematuria
[2019-07-17] MEDS: WARFARIN SOD 7.5 MG TAB PO SCH (18:35)
[2019-07-17] MEDS: MIRTAZAPINE TAB 15 MG TAB PO SCH (20:52)
[2019-07-17] MEDS: TAMSULOSIN HCL 0.4 MG CAP PO SCH (20:53)
[2019-07-17] MEDS: SERTRALINE HCL 50 MG TABLET PO SCH (20:53)
[2019-07-17] MEDS: HEPARIN SODIUM/DEXTROSE 25,000 UNITS/500 ML BAG IV SCH (22:41)
[2019-07-18 05:56] LABS: INR 1.9 (0.9-1.1); Partial Thromboplastin Ratio 1.8; Prothrombin Time 19.2 Seconds (9.0-12.0)
[2019-07-18 06:02] LABS: Partial Thromboplastin Time 51.5 Seconds (21.0-31.0)
[2019-07-18] MEDS: IPRATROPIUM BROMIDE HFA INHALER INH SCH ×4 (07:09→19:06)
[2019-07-18] MEDS: ALBUTEROL HFA 8 GM INHALER INH SCH ×4 (07:09→19:05)
[2019-07-18] MEDS: THIAMINE HCL 100 MG TAB PO SCH (09:03)
[2019-07-18] MEDS: METOPROLOL SUCC 25MG EXT REL TAB PO SCH (09:03)
[2019-07-18] MEDS: cephALEXin 500 MG CAP PO SCH ×2 (09:03→21:16)
[2019-07-18] MEDS: LOSARTAN POTASSIUM 50 MG TAB PO SCH (09:04)
[2019-07-18] MEDS: AMLODIPINE BESYLATE 5 MG TAB PO SCH (09:04)
[2019-07-18] MEDS: CEROVITE ADV FORMULA TAB PO SCH (09:04)
[2019-07-18] MEDS ORDERED: WARFARIN SOD 5 MG TAB PO ONE (16:27)
--- NOTE | 2019-07-18 16:32 | Hospitalist Progress Note ---
Date of Service July 18, 2019 Assessment & Plan (1) Pulmonary emboli: left-sided PEs with LLE DVT. likely the main reason for presenting dyspnea at admission. unfortunately does not have Medicare Part D coverage thus novel agent is not possible due to cost. also, [facility] cannot accommodate use of lovenox. thus, our only option is heparin drip with coumadin. cont heparin; first dose of coumadin was 7.5mg on 07/14; same on 07/15 INR increased to 1.5, will redose at 7.5 again 07/17 Further increase to 1.9, will dose at 5mg 06/17 supportive care/O2 as needed. I believe extremely sedentary lifestyle and isolation at the [facility] in the setting of COVID led to immobility and hence the VTE. no recent surgery or travel. COVID neg 07/11 (2) DVT (deep venous thrombosis): LLE. Suspect due to sedentary lifestyle in the midst of lockdown/isolation from COVID-19. Heparin w/ coumadin. See PE above. (3) Fever: likely 2nd to DVT/PE. biofire panel negative at admission. COVID-19 negative at admission. does have UTI but received rocephin previously followed by keflex thus doubt ongoing fever is from UTI. blood cultures negative. continue to monitor. (4) Dyspnea on exertion: acute on chronic. acute - PEs +/- diastolic CHF. chronic - etiology uncertain. To date the following have been negative - * biofire respiratory panel * COVID-19 * chest x-ray * echo is largely normal CTA chest POSITIVE for PEs which is likely the main reason for dyspnea. I also believe she has mild volume overload/pulm edema- have given multiple doses of IV/PO lasix. She has had an intermittent wheeze - she reports ongoing for a year or more. No prior dx of COPD, asthma, etc. Uncertain if the wheezing is from pulm edema or other cause (silent aspiration? other?). cont to treat PEs. will give another dose of PO lasix today. add combivent 1 puff QID as well. if "wheezing" persists consider outpatient PFTs. (5) Acute diastolic (congestive) heart failure: s/p 3 days of lasix IV/PO with improving edema and symptoms. using lasix 20mg PO PRN, hold today Monitor (6) Essential (primary) hypertension: Cont home meds (7) SVT (supraventricular tachycardia): a tach seen on tele this admission ?PAF run as well either way will be on beta ute and anticoagulation (8) UTI (urinary tract infection): received rocephin IV x 2 doses; now on keflex 500mg BID x 5 additional days (9) Chronic kidney disease, stage 3a: baseline CrCL 40s/50s BMP am (10) Exposure to COVID-19 virus: multiple cases of COVID-19 at the [place] [facility] in June patient did not have obvious COVID disease but son states patient has been short of breath for 1-2 months uncertain if patient could have had unrecognized COVID illness her COVID PCR was negative this admission there may be value in checking COVID IgG antibody test this has been sent and is pending PT/OT recs for SNF, CM d/w son and working on placement (11) Wheezing: Pt states this has happened in the past Hx of smoking, although quit several years ago Possibly underlying COPD?? Will need formal PFTs once recovered from PE PRN albuterol for now Pt advised to keep track of frequency of use of inhaler as she may need a preventive inhaler for regular use rather than rescue inhaler Admission and Anticipated Discharge Date Admission Date: July 14, 2019 Subjective Pt feels better. She has not had SOB or chest pain. Eating without issue. Pt denies fever, abd pain, n/v/c/d, LE pain or swelling. She states she had mild wheezing overnight and O2 was put on. She states she was given an inhaler for this, but was not attempted by nursing. It is now resolved. Review of Systems Review of Systems: Pertinent positives and negatives reviewed in HPI--all others negative Physical Exam Constitutional: WD/WN, vitals as above Eyes: normal visual [place] by confrontation and + anicteric sclerae Neck: normal visual inspection and trachea midline Respiratory: normal respiratory effort, lungs clear to auscultation Cardiovascular: Rate/Rhythm: regular rate and regular rhythm Gastrointestinal (Abdomen): Inspection/Auscultation: abdomen not distended Percussion/Palpation: abdomen soft; abdomen nontender Musculoskeletal: Head/Neck/Chest: normocephalic and head atraumatic Skin: no rashes, warm and dry Neurologic: awake; not confused Speech / Cognition: normal speech Psychiatric: A+Ox3, euthymic affect Results & Data Results & Data ([facility]) Vital Signs (Past 12 Hours) Vital Signs Temp Pulse Pulse Resp BP Pulse Ox 07/18/19 15:45 70 16 90 07/18/19 15:00 37.5 C 70 19 103/64 92 07/18/19 11:33 37.0 C 61 18 106/55 L 92 07/18/19 11:14 68 14 94 07/18/19 09:30 93 07/18/19 07:27 71 07/18/19 07:26 36.9 C 77 18 125/72 94 PG Care Time/CCT Total # of Minutes Spent Total Time Spent with Patient: Total time spent is greater than 50% in coordination of care (as documented) at patient's floor/unit and/or counseling patient: Coding Level of Care Code 32275 Subseq Hosp Care Lvl 2 Diagnoses Pulmonary emboli I26.99 Pulmonary embolism type: unspecified Chronicity: acute Acute cor pulmonale presence: without acute cor pulmonale DVT (deep venous thrombosis) I82.402 DVT location: lower extremity Affected thrombotic vein of extremity: unspecified vein of extremity Chronicity: acute Laterality: left Fever R50.9 Fever type: unspecified Dyspnea on exertion R06.00 Acute diastolic (congestive) heart failure I50.31 Essential (primary) hypertension I10 SVT (supraventricular tachycardia) I47.1 UTI (urinary tract infection) N30.00 Urinary tract infection type: acute cystitis Hematuria presence: without hematuria Chronic kidney disease, stage 3a N18.3 Exposure to COVID-19 virus Z20.828 Wheezing R06.2 (1) Pulmonary emboli Pulmonary embolism type: unspecified Chronicity: acute Acute cor pulmonale presence: without acute cor pulmonale Qualified Code(s): I26.99 - Other pulmonary embolism without acute cor pulmonale (2) DVT (deep venous thrombosis) DVT location: lower extremity Affected thrombotic vein of extremity: unspecified vein of extremity Chronicity: acute Laterality: left Qualified Code(s): I82.402 - Acute embolism and thrombosis of unspecified deep veins of left lower extremity (3) Fever Fever type: unspecified Qualified Code(s): R50.9 - Fever, unspecified (4) UTI (urinary tract infection) Urinary tract infection type: acute cystitis Hematuria presence: without hematuria Qualified Code(s): N30.00 - Acute cystitis without hematuria
[2019-07-18] MEDS: WARFARIN SOD 7.5 MG TAB PO SCH (18:43)
[2019-07-18] MEDS: TAMSULOSIN HCL 0.4 MG CAP PO SCH (21:15)
[2019-07-18] MEDS: MIRTAZAPINE TAB 15 MG TAB PO SCH (21:15)
[2019-07-18] MEDS: SERTRALINE HCL 50 MG TABLET PO SCH (21:16)
[2019-07-18] MEDS: HEPARIN SODIUM/DEXTROSE 25,000 UNITS/500 ML BAG IV SCH (23:16)
[2019-07-19] MEDS: ALBUTEROL HFA 8 GM INHALER INH SCH ×5 (06:52→19:07)
[2019-07-19] MEDS: IPRATROPIUM BROMIDE HFA INHALER INH SCH ×5 (06:52→19:08)
[2019-07-19] MEDS: THIAMINE HCL 100 MG TAB PO SCH (08:35)
[2019-07-19] MEDS: METOPROLOL SUCC 25MG EXT REL TAB PO SCH (08:35)
[2019-07-19] MEDS: cephALEXin 500 MG CAP PO SCH (08:35)
[2019-07-19] MEDS: CEROVITE ADV FORMULA TAB PO SCH (08:35)
[2019-07-19] MEDS: AMLODIPINE BESYLATE 5 MG TAB PO SCH (08:36)
[2019-07-19] MEDS: LOSARTAN POTASSIUM 50 MG TAB PO SCH (08:36)
[2019-07-19 08:51] LABS: INR 2.6 (0.9-1.1); Partial Thromboplastin Ratio 2.6; Prothrombin Time 26.1 Seconds (9.0-12.0)
[2019-07-19 08:55] LABS: Partial Thromboplastin Time 71.4 Seconds (21.0-31.0)
[2019-07-19] MEDS ORDERED: WARFARIN SOD 2.5 MG TAB PO ONE (15:40)
[2019-07-19 16:03] LABS: Partial Thromboplastin Ratio 1.7
[2019-07-19 16:14] LABS: Partial Thromboplastin Time 48.5 Seconds (21.0-31.0)
[2019-07-19] MEDS ORDERED: ENOXAPARIN 1 MG/KG SQ SCH (17:00)
--- NOTE | 2019-07-19 17:02 | Hospitalist Progress Note ---
Date of Service July 19, 2019 Assessment & Plan (1) Pulmonary emboli: left-sided PEs with LLE DVT. likely the main reason for presenting dyspnea at admission. unfortunately does not have Medicare Part D coverage thus novel agent is not possible due to cost. also, [facility] cannot accommodate use of lovenox. thus, our only option is heparin drip with coumadin. cont heparin; first dose of coumadin was 7.5mg on 07/14; same on 07/15 INR increased to 1.5, will redose at 7.5 again 07/17 Further increase to 1.9, will dose at 5mg 06/17 Therapeutic on 07/18 at 2.5, will dose at 2.5mg Heparin to lovenox 1mg/kg BID 07/18 x48 hours supportive care/O2 as needed. I believe extremely sedentary lifestyle and isolation at the [facility] in the setting of COVID led to immobility and hence the VTE. no recent surgery or travel. COVID neg 07/11 (2) DVT (deep venous thrombosis): LLE. Suspect due to sedentary lifestyle in the midst of lockdown/isolation from COVID-19. Lovenox w/ coumadin. See PE above. (3) Fever: likely 2nd to DVT/PE. biofire panel negative at admission. COVID-19 negative at admission. does have UTI but received rocephin previously followed by alexis thus doubt ongoing fever is from UTI. blood cultures negative. continue to monitor. (4) Dyspnea on exertion: acute on chronic. acute - PEs +/- diastolic CHF. chronic - etiology uncertain. To date the following have been negative - * biofire respiratory panel * COVID-19 * chest x-ray * echo is largely normal CTA chest POSITIVE for PEs which is likely the main reason for dyspnea. I also believe she has mild volume overload/pulm edema- have given multiple doses of IV/PO lasix. She has had an intermittent wheeze - she reports ongoing for a year or more. No prior dx of COPD, asthma, etc. Uncertain if the wheezing is from pulm edema or other cause (silent aspiration? other?). cont to treat PEs. lasix PRN add combivent 1 puff QID as well. if "wheezing" persists consider outpatient PFTs. (5) Acute diastolic (congestive) heart failure: s/p 3 days of lasix IV/PO with improving edema and symptoms. using lasix 20mg PO PRN, hold today Monitor (6) Essential (primary) hypertension: Cont home meds (7) SVT (supraventricular tachycardia): a tach seen on tele this admission ?PAF run as well either way will be on beta ute and anticoagulation (8) UTI (urinary tract infection): received rocephin IV x 2 doses; now on keflex 500mg BID x 5 additional days (9) Chronic kidney disease, stage 3a: baseline CrCL 40s/50s BMP am (10) Exposure to COVID-19 virus: multiple cases of COVID-19 at the [facility] living [facility] in June patient did not have obvious COVID disease but son states patient has been short of breath for 1-2 months uncertain if patient could have had unrecognized COVID illness her COVID PCR was negative this admission there may be value in checking COVID IgG antibody test this has been sent and is pending PT/OT recs for SNF, CM d/w son and working on placement No auth available until after the weekend per CM (11) Wheezing: Pt states this has happened in the past Hx of smoking, although quit several years ago Possibly underlying COPD?? Will need formal PFTs once recovered from PE PRN albuterol for now Pt advised to keep track of frequency of use of inhaler as she may need a preventive inhaler for regular use rather than rescue inhaler Admission and Anticipated Discharge Date Admission Date: July 14, 2019 Subjective Pt is stable. Denies SOB or chest pain. Eating without issue. Pt denies fever, abd pain, n/v/c/d, LE pain or swelling. Mild wheezing today. Review of Systems Review of Systems: Pertinent positives and negatives reviewed in HPI--all others negative Physical Exam Constitutional: WD/WN, vitals as above Eyes: normal visual [place] by confrontation and + anicteric sclerae Neck: normal visual inspection and trachea midline Respiratory: normal respiratory effort; no respiratory distress Auscultation: + wheezes; no crackles Cardiovascular: Rate/Rhythm: regular rate and regular rhythm Gastrointestinal (Abdomen): Inspection/Auscultation: abdomen not distended Percussion/Palpation: abdomen soft; abdomen nontender Musculoskeletal: Head/Neck/Chest: normocephalic and head atraumatic Skin: no rashes, warm and dry Neurologic: awake; not confused Speech / Cognition: normal speech Psychiatric: A+Ox3, euthymic affect Results & Data Results & Data ([facility]) Vital Signs (Past 12 Hours) Vital Signs Temp Pulse Pulse Resp BP Pulse Ox 07/19/19 16:00 36.6 C 71 20 107/56 L 97 07/19/19 15:20 63 07/19/19 15:04 69 18 96 07/19/19 12:17 36.8 C 67 18 120/74 94 07/19/19 08:00 61 07/19/19 07:00 36.6 C 62 18 132/77 93 07/19/19 06:52 72 18 97 PG Care Time/CCT Total # of Minutes Spent Total Time Spent with Patient: Total time spent is greater than 50% in coordination of care (as documented) at patient's floor/unit and/or counseling patient: Coding Level of Care Code 55911 Subseq Hosp Care Lvl 2 Diagnoses Pulmonary emboli I26.99 Pulmonary embolism type: unspecified Chronicity: acute Acute cor pulmonale presence: without acute cor pulmonale DVT (deep venous thrombosis) I82.402 DVT location: lower extremity Affected thrombotic vein of extremity: unspecified vein of extremity Chronicity: acute Laterality: left Fever R50.9 Fever type: unspecified Dyspnea on exertion R06.00 Acute diastolic (congestive) heart failure I50.31 Essential (primary) hypertension I10 SVT (supraventricular tachycardia) I47.1 UTI (urinary tract infection) N30.00 Urinary tract infection type: acute cystitis Hematuria presence: without hematuria Chronic kidney disease, stage 3a N18.3 Exposure to COVID-19 virus Z20.828 Wheezing R06.2 (1) Pulmonary emboli Pulmonary embolism type: unspecified Chronicity: acute Acute cor pulmonale presence: without acute cor pulmonale Qualified Code(s): I26.99 - Other pulmonary embolism without acute cor pulmonale (2) DVT (deep venous thrombosis) DVT location: lower extremity Affected thrombotic vein of extremity: unspecified vein of extremity Chronicity: acute Laterality: left Qualified Code(s): I82.402 - Acute embolism and thrombosis of unspecified deep veins of left lower extremity (3) Fever Fever type: unspecified Qualified Code(s): R50.9 - Fever, unspecified (4) UTI (urinary tract infection) Urinary tract infection type: acute cystitis Hematuria presence: without hematuria Qualified Code(s): N30.00 - Acute cystitis without hematuria
[2019-07-19] MEDS: ENOXAPARIN 80 MG/0.8 ML SYR SQ SCH (18:04)
[2019-07-19] MEDS: SERTRALINE HCL 50 MG TABLET PO SCH (20:39)
[2019-07-19] MEDS: TAMSULOSIN HCL 0.4 MG CAP PO SCH (20:39)
[2019-07-19] MEDS: MIRTAZAPINE TAB 15 MG TAB PO SCH (20:39)
[2019-07-20] MEDS: ENOXAPARIN 80 MG/0.8 ML SYR SQ SCH ×2 (05:47→18:01)
[2019-07-20] MEDS: IPRATROPIUM BROMIDE HFA INHALER INH SCH ×4 (07:01→19:05)
[2019-07-20] MEDS: ALBUTEROL HFA 8 GM INHALER INH SCH ×4 (07:03→19:05)
[2019-07-20] MEDS: CEROVITE ADV FORMULA TAB PO SCH (08:12)
[2019-07-20] MEDS: LOSARTAN POTASSIUM 50 MG TAB PO SCH (08:12)
[2019-07-20] MEDS: THIAMINE HCL 100 MG TAB PO SCH (08:12)
[2019-07-20] MEDS: METOPROLOL SUCC 25MG EXT REL TAB PO SCH (08:12)
[2019-07-20] MEDS: AMLODIPINE BESYLATE 5 MG TAB PO SCH (08:12)
[2019-07-20 08:41] LABS: INR 2.3 (0.9-1.1); Prothrombin Time 23.4 Seconds (9.0-12.0)
[2019-07-20 08:48] LABS: Hematocrit (blood only) 29.1 % (37-47); Hemoglobin 9.6 g/dL (12.0-16.0); Mean Corpuscular Hemoglobin 27.8 pg (25-34); Mean Corpuscular Volume 84.3 fL (80-100); Mean Platelet Volume 9.5 fL (7.4-10.4); Platelet Count 284 K/uL (130-400); RDW Coefficient of Variation 15.8 % (11.5-14.5); Red Blood Count 3.45 M/uL (4.2-5.4)
[2019-07-20 08:59] LABS: Creatinine Clr Calc Pharmacy 55.9 ml/min; Est GFR (African American) 87.7; Est GFR (Non-African American) 75.6
[2019-07-20] MEDS ORDERED: MICONAZOLE NITRATE POWDER 43 GM EXT PRN (10:45)
--- NOTE | 2019-07-20 13:01 | Hospitalist Progress Note ---
Date of Service July 20, 2019 Assessment & Plan (1) Pulmonary emboli: left-sided PEs with LLE DVT. likely the main reason for presenting dyspnea at admission. unfortunately does not have Medicare Part D coverage thus novel agent is not possible due to cost. also, [facility] long-term cannot accommodate use of lovenox. thus, our only option is heparin drip with coumadin. cont heparin; first dose of coumadin was 7.5mg on 07/14; same on 07/15 INR increased to 1.5, will redose at 7.5 again 07/17 Further increase to 1.9, will dose at 5mg 06/17 Therapeutic on 07/18 at 2.5, will dose at 2.5mg 07/19 2.3, will dose at 2.5 Heparin to lovenox 1mg/kg BID 07/18 x48 hours, will complete 07/20 supportive care/O2 as needed. I believe extremely sedentary lifestyle and isolation at the [facility] in the setting of COVID led to immobility and hence the VTE. no recent surgery or travel. COVID neg 07/11 (2) DVT (deep venous thrombosis): LLE. Suspect due to sedentary lifestyle in the midst of lockdown/isolation from COVID-19. Lovenox w/ coumadin. See PE above. (3) Fever: likely 2nd to DVT/PE. biofire panel negative at admission. COVID-19 negative at admission. does have UTI but received rocephin previously followed by [facility] thus doubt ongoing fever is from UTI. blood cultures negative. continue to monitor. (4) Dyspnea on exertion: acute on chronic. acute - PEs +/- diastolic CHF. chronic - etiology uncertain. To date the following have been negative - * biofire respiratory panel * COVID-19 * chest x-ray * echo is largely normal CTA chest POSITIVE for PEs which is likely the main reason for dyspnea. I also believe she has mild volume overload/pulm edema- have given multiple doses of IV/PO lasix. She has had an intermittent wheeze - she reports ongoing for a year or more. No prior dx of COPD, asthma, etc. Uncertain if the wheezing is from pulm edema or other cause (silent aspiration? other?). cont to treat PEs. lasix PRN add combivent 1 puff QID as well. if "wheezing" persists consider outpatient PFTs. (5) Acute diastolic (congestive) heart failure: s/p 3 days of lasix IV/PO with improving edema and symptoms. using lasix 20mg PO PRN, hold today Monitor (6) Essential (primary) hypertension: Cont home meds (7) SVT (supraventricular tachycardia): a tach seen on tele this admission ?PAF run as well either way will be on beta ute and anticoagulation (8) UTI (urinary tract infection): received rocephin IV x 2 doses; now on keflex 500mg BID x 5 additional days (9) Chronic kidney disease, stage 3a: baseline CrCL 40s/50s BMP am (10) Exposure to COVID-19 virus: multiple cases of COVID-19 at the [facility] living facility in June patient did not have obvious COVID disease but son states patient has been short of breath for 1-2 months uncertain if patient could have had unrecognized COVID illness her COVID PCR was negative this admission there may be value in checking COVID IgG antibody test this has been sent and is pending PT/OT recs for SNF, CM d/w son and working on placement No auth available until after the weekend per (11) Wheezing: Pt states this has happened in the past Hx of smoking, although quit several years ago Possibly underlying COPD?? Will need formal PFTs once recovered from PE PRN albuterol for now Pt advised to keep track of frequency of use of inhaler as she may need a preventive inhaler for regular use rather than rescue inhaler Admission and Anticipated Discharge Date Admission Date: July 14, 2019 Subjective Pt states "I woke up and feel the best I have felt in a long time". Denies SOB or chest pain. Eating without issue. Pt denies fever, abd pain, n/v/c/d, LE pain or swelling. Review of Systems Review of Systems: Pertinent positives and negatives reviewed in HPI--all others negative Physical Exam Constitutional: WD/WN, vitals as above Eyes: normal visual [place] by confrontation and + anicteric sclerae Neck: normal visual inspection and trachea midline Respiratory: normal respiratory effort, lungs clear to auscultation normal respiratory effort; no respiratory distress Auscultation: no crackles and no wheezes Cardiovascular: Rate/Rhythm: regular rate and regular rhythm Gastrointestinal (Abdomen): Inspection/Auscultation: abdomen not distended Percussion/Palpation: abdomen soft; abdomen nontender Musculoskeletal: Head/Neck/Chest: normocephalic and head atraumatic Skin: no rashes, warm and dry Neurologic: awake; not confused Speech / Cognition: normal speech Psychiatric: A+Ox3, euthymic affect Results & Data Results & Data ([facility]) Vital Signs (Past 12 Hours) Vital Signs Temp Pulse Pulse Resp BP BP Pulse Ox 07/20/19 11:37 36.6 C 70 20 123/72 95 07/20/19 11:06 65 16 95 07/20/19 07:34 36.9 C 77 20 112/71 90 07/20/19 07:04 70 16 93 07/20/19 07:00 60 07/20/19 03:55 36.9 C 66 20 108/66 92 PG Care Time/CCT Total # of Minutes Spent Total Time Spent with Patient: Total time spent is greater than 50% in coordination of care (as documented) at patient's floor/unit and/or counseling patient: Coding Level of Care Code 98511 Subseq Hosp Care Lvl 2 Diagnoses Pulmonary emboli I26.99 Pulmonary embolism type: unspecified Chronicity: acute Acute cor pulmonale presence: without acute cor pulmonale DVT (deep venous thrombosis) I82.402 DVT location: lower extremity Affected thrombotic vein of extremity: unspecified vein of extremity Chronicity: acute Laterality: left Fever R50.9 Fever type: unspecified Dyspnea on exertion R06.00 Acute diastolic (congestive) heart failure I50.31 Essential (primary) hypertension I10 SVT (supraventricular tachycardia) I47.1 UTI (urinary tract infection) N30.00 Urinary tract infection type: acute cystitis Hematuria presence: without hematuria Chronic kidney disease, stage 3a N18.3 Exposure to COVID-19 virus Z20.828 Wheezing R06.2 (1) Pulmonary emboli Pulmonary embolism type: unspecified Chronicity: acute Acute cor pulmonale presence: without acute cor pulmonale Qualified Code(s): I26.99 - Other pulmonary embolism without acute cor pulmonale (2) DVT (deep venous thrombosis) DVT location: lower extremity Affected thrombotic vein of extremity: unspecified vein of extremity Chronicity: acute Laterality: left Qualified Code(s): I82.402 - Acute embolism and thrombosis of unspecified deep veins of left lower extremity (3) Fever Fever type: unspecified Qualified Code(s): R50.9 - Fever, unspecified (4) UTI (urinary tract infection) Urinary tract infection type: acute cystitis Hematuria presence: without hematuria Qualified Code(s): N30.00 - Acute cystitis without hematuria
[2019-07-20] MEDS ORDERED: WARFARIN SOD 2.5 MG TAB PO ONE (13:15)
[2019-07-20] MEDS: HEPARIN SODIUM/DEXTROSE 25,000 UNITS/500 ML BAG IV SCH ×3 (19:27→20:37)
[2019-07-20] MEDS: TAMSULOSIN HCL 0.4 MG CAP PO SCH (21:41)
[2019-07-20] MEDS: SERTRALINE HCL 50 MG TABLET PO SCH (21:42)
[2019-07-20] MEDS: MIRTAZAPINE TAB 15 MG TAB PO SCH (21:43)
[2019-07-21] MEDS: ENOXAPARIN 80 MG/0.8 ML SYR SQ SCH ×2 (06:45→17:48)
[2019-07-21 07:37] LABS: INR 1.9 (0.9-1.1); Prothrombin Time 19.8 Seconds (9.0-12.0)
[2019-07-21] MEDS: ALBUTEROL HFA 8 GM INHALER INH SCH ×4 (07:47→18:29)
[2019-07-21] MEDS: IPRATROPIUM BROMIDE HFA INHALER INH SCH ×4 (07:47→18:29)
[2019-07-21] MEDS: THIAMINE HCL 100 MG TAB PO SCH (08:18)
[2019-07-21] MEDS: CEROVITE ADV FORMULA TAB PO SCH (08:19)
[2019-07-21] MEDS: LOSARTAN POTASSIUM 50 MG TAB PO SCH (08:19)
[2019-07-21] MEDS: METOPROLOL SUCC 25MG EXT REL TAB PO SCH (08:19)
[2019-07-21] MEDS: AMLODIPINE BESYLATE 5 MG TAB PO SCH (08:19)
[2019-07-21] MEDS ORDERED: WARFARIN SOD 4 MG TAB PO ONE (14:04)
--- NOTE | 2019-07-21 14:08 | Hospitalist Progress Note ---
Date of Service July 21, 2019 Assessment & Plan (1) Pulmonary emboli: left-sided PEs with LLE DVT. likely the main reason for presenting dyspnea at admission. unfortunately does not have Medicare Part D coverage thus novel agent is not possible due to cost. also, [facility] long term cannot accommodate use of lovenox. thus, our only option is heparin drip with coumadin. cont heparin; first dose of coumadin was 7.5mg on 07/14; same on 07/15 INR increased to 1.5, will redose at 7.5 again 07/17 Further increase to 1.9, will dose at 5mg 06/17 Therapeutic on 07/18 at 2.5, will dose at 2.5mg 07/19 2.3, will dose at 2.5mg 07/20 1.9, will dose at 4mg Heparin to lovenox 1mg/kg BID 07/18 x48 hours, will complete 07/20 supportive care/O2 as needed. I believe extremely sedentary lifestyle and isolation at the [facility] in the setting of COVID led to immobility and hence the VTE. no recent surgery or travel. COVID neg 07/11 (2) DVT (deep venous thrombosis): LLE. Suspect due to sedentary lifestyle in the midst of lockdown/isolation from COVID-19. Lovenox w/ coumadin. See PE above. (3) Fever: likely 2nd to DVT/PE. biofire panel negative at admission. COVID-19 negative at admission. does have UTI but received rocephin previously followed by keflex thus doubt ongoing fever is from UTI. blood cultures negative. continue to monitor. (4) Dyspnea on exertion: acute on chronic. acute - PEs +/- diastolic CHF. chronic - etiology uncertain. To date the following have been negative - * biofire respiratory panel * COVID-19 * chest x-ray * echo is largely normal CTA chest POSITIVE for PEs which is likely the main reason for dyspnea. I also believe she has mild volume overload/pulm edema- have given multiple doses of IV/PO lasix. She has had an intermittent wheeze - she reports ongoing for a year or more. No prior dx of COPD, asthma, etc. Uncertain if the wheezing is from pulm edema or other cause (silent aspiration? other?). cont to treat PEs. lasix PRN add combivent 1 puff QID as well. if "wheezing" persists consider outpatient PFTs. (5) Acute diastolic (congestive) heart failure: s/p 3 days of lasix IV/PO with improving edema and symptoms. using lasix 20mg PO PRN, hold today Monitor (6) Essential (primary) hypertension: Cont home meds (7) SVT (supraventricular tachycardia): a tach seen on tele this admission ?PAF run as well either way will be on beta ute and anticoagulation (8) UTI (urinary tract infection): received rocephin IV x 2 doses; now on keflex 500mg BID x 5 additional days (9) Chronic kidney disease, stage 3a: baseline CrCL 40s/50s BMP am (10) Exposure to COVID-19 virus: multiple cases of COVID-19 at the [facility] in June patient did not have obvious COVID disease but son states patient has been short of breath for 1-2 months uncertain if patient could have had unrecognized COVID illness her COVID PCR was negative this admission there may be value in checking COVID IgG antibody test this has been sent and is pending PT/OT recs for SNF, CM d/w son and working on placement No bed available at [facility] yet, pt needs to go to SNF for rehab Pt likely developed clots due to inactivity at [facility], she should not return there given need for rehab (11) Wheezing: Pt states this has happened in the past Hx of smoking, although quit several years ago Possibly underlying COPD?? Will need formal PFTs once recovered from PE PRN albuterol for now Pt advised to keep track of frequency of use of inhaler as she may need a preventive inhaler for regular use rather than rescue inhaler Admission and Anticipated Discharge Date Admission Date: July 14, 2019 Subjective Pt continues to feel well. Denies SOB or chest pain. Eating without issue. Pt denies fever, abd pain, n/v/c/d, LE pain or swelling. Review of Systems Review of Systems: Pertinent positives and negatives reviewed in HPI--all others negative Physical Exam Constitutional: WD/WN, vitals as above Eyes: normal visual [place] by confrontation and + anicteric sclerae Neck: normal visual inspection and trachea midline Respiratory: normal respiratory effort, lungs clear to auscultation normal respiratory effort; no respiratory distress Auscultation: no crackles and no wheezes Cardiovascular: Rate/Rhythm: regular rate and regular rhythm Gastrointestinal (Abdomen): Inspection/Auscultation: abdomen not distended Percussion/Palpation: abdomen soft; abdomen nontender Musculoskeletal: Head/Neck/Chest: normocephalic and head atraumatic Skin: no rashes, warm and dry Neurologic: awake; not confused Speech / Cognition: normal speech Psychiatric: A+Ox3, euthymic affect Results & Data Results & Data ([facility]) Vital Signs (Past 12 Hours) Vital Signs Temp Pulse Resp BP BP Pulse Ox 07/21/19 11:21 70 16 93 07/21/19 11:13 36.6 C 77 20 120/75 92 07/21/19 07:51 68 16 94 07/21/19 07:36 36.6 C 78 18 151/71 H 92 07/21/19 03:00 36.7 C 69 20 110/66 92 PG Care Time/CCT Total # of Minutes Spent Total Time Spent with Patient: Total time spent is greater than 50% in coordination of care (as documented) at patient's floor/unit and/or counseling patient: Coding Level of Care Code 16085 Subseq Hosp Care Lvl 2 Diagnoses Pulmonary emboli I26.99 Pulmonary embolism type: unspecified Chronicity: acute Acute cor pulmonale presence: without acute cor pulmonale DVT (deep venous thrombosis) I82.402 DVT location: lower extremity Affected thrombotic vein of extremity: unspecified vein of extremity Chronicity: acute Laterality: left Fever R50.9 Fever type: unspecified Dyspnea on exertion R06.00 Acute diastolic (congestive) heart failure I50.31 Essential (primary) hypertension I10 SVT (supraventricular tachycardia) I47.1 UTI (urinary tract infection) N30.00 Urinary tract infection type: acute cystitis Hematuria presence: without hematuria Chronic kidney disease, stage 3a N18.3 Exposure to COVID-19 virus Z20.828 Wheezing R06.2 (1) Pulmonary emboli Pulmonary embolism type: unspecified Chronicity: acute Acute cor pulmonale presence: without acute cor pulmonale Qualified Code(s): I26.99 - Other pulmonary embolism without acute cor pulmonale (2) DVT (deep venous thrombosis) DVT location: lower extremity Affected thrombotic vein of extremity: unspecified vein of extremity Chronicity: acute Laterality: left Qualified Code(s): I82.402 - Acute embolism and thrombosis of unspecified deep veins of left lower extremity (3) Fever Fever type: unspecified Qualified Code(s): R50.9 - Fever, unspecified (4) UTI (urinary tract infection) Urinary tract infection type: acute cystitis Hematuria presence: without hematuria Qualified Code(s): N30.00 - Acute cystitis without hematuria
[2019-07-21] MEDS: TAMSULOSIN HCL 0.4 MG CAP PO SCH (20:03)
[2019-07-21] MEDS: MIRTAZAPINE TAB 15 MG TAB PO SCH (20:03)
[2019-07-21] MEDS: SERTRALINE HCL 50 MG TABLET PO SCH (20:03)
[2019-07-22] MEDS: ENOXAPARIN 80 MG/0.8 ML SYR SQ SCH ×2 (05:31→18:50)
[2019-07-22] MEDS: IPRATROPIUM BROMIDE HFA INHALER INH SCH ×4 (07:53→19:12)
[2019-07-22] MEDS: ALBUTEROL HFA 8 GM INHALER INH SCH ×4 (07:54→19:12)
[2019-07-22 08:55] LABS: INR 1.9 (0.9-1.1); Prothrombin Time 19.5 Seconds (9.0-12.0)
[2019-07-22 09:47] LABS: Hematocrit (blood only) 30.7 % (37-47); Hemoglobin 9.9 g/dL (12.0-16.0); Mean Corpuscular Hemoglobin 27.4 pg (25-34); Mean Corpuscular Hgb Conc 32.2 g/dL (32-36); Mean Platelet Volume 9.8 fL (7.4-10.4); Platelet Count 312 K/uL (130-400); RDW Coefficient of Variation 16.2 % (11.5-14.5); Red Blood Count 3.61 M/uL (4.2-5.4); White Blood Count 7.98 K/uL (4.8-10.8)
[2019-07-22 09:50] LABS: BUN Creatinine Ratio 15.4 (10-20); Calcium 8.6 mg/dl (8.5-10.1); Creatinine Clr Calc Pharmacy 47.2 ml/min; Est GFR (African American) 70.9; Est GFR (Non-African American) 61.2; Potassium 4.2 mmol/L (3.5-5.1)
[2019-07-22] MEDS: LOSARTAN POTASSIUM 50 MG TAB PO SCH (10:01)
[2019-07-22] MEDS: AMLODIPINE BESYLATE 5 MG TAB PO SCH (10:02)
[2019-07-22] MEDS: METOPROLOL SUCC 25MG EXT REL TAB PO SCH (10:02)
[2019-07-22] MEDS: THIAMINE HCL 100 MG TAB PO SCH (10:02)
[2019-07-22] MEDS: CEROVITE ADV FORMULA TAB PO SCH (10:03)
[2019-07-22] MEDS ORDERED: FUROSEMIDE 20 MG TAB PO ONE (12:29)
[2019-07-22] MEDS: WARFARIN SOD 5 MG TAB PO SCH (16:57)
--- NOTE | 2019-07-22 17:09 | Hospitalist Progress Note ---
Date of Service July 22, 2019 Assessment & Plan (1) Pulmonary emboli: left-sided PEs with LLE DVT. likely the main reason for presenting dyspnea at admission. First dose of coumadin was 7.5mg on 07/14. received another dose of 7.5mg on 07/15. INR kyrie to >2 for 48 hours but then trended to 1.9. Received 4mg on 07/20. Will give 5mg TODAY. Repeat INR in am. Cont lovenox 1mg/kg BID. I believe extremely sedentary lifestyle and isolation at the [facility] led to immobility and hence the VTE. no recent surgery or travel. no COVID disease. (2) DVT (deep venous thrombosis): LLE. Suspect due to sedentary lifestyle in the midst of lockdown/isolation from COVID-19. lovenox/coumadin see above (3) Fever: likely 2nd to DVT/PE. resolved. biofire panel negative at admission. COVID-19 negative at admission. COVID-19 serological ab test negative. had UTI - adequately treated. blood cx's also negative. (4) Dyspnea on exertion: acute on chronic. acute - PEs +/- diastolic CHF. chronic - etiology uncertain. patient reports improvement in "wheezing" with bronchodilators. consider outpatient PFTs. some form of obstructive lung disease could be causing chronic ROBERTO and chronic wheezing (or wheeze is from "cardiac" wheezing from pulm edema?). (5) Acute diastolic (congestive) heart failure: resolved however will gave lasix PO again today for LE edema but lungs sounds good and she has no JVD (6) Essential (primary) hypertension: Cont home meds (7) SVT (supraventricular tachycardia): a tach seen on tele this admission ?PAF run as well either way will be on beta ute and anticoagulation (8) UTI (urinary tract infection): completed 7 days of Rx resolved (9) Chronic kidney disease, stage 3a: baseline CrCL 40s/50s BMP stable (10) Exposure to COVID-19 virus: multiple cases of COVID-19 at the [facility] living [facility] in June patient did not have obvious COVID disease but son states patient has been short of breath for 1-2 months COVID-19 PCR neg COVID-19 serological antibody test negative (11) Physical deconditioning: rehab recommended by PT/OT [facility]ian[facility] accepted patient but did not have bed social work trying to secure 2nd option also, social work trying to see if patient's needs could be met back at the [facility] awaiting final dispo Admission and Anticipated Discharge Date Admission Date: July 14, 2019 Subjective feeling good no complaints except LE edema eating well no dyspnea at rest or w/ activity anxious to leave - wants to return to the [facility]; can't understand "why I can't go back there" Review of Systems Constitutional: no fever Respiratory: no cough and no dyspnea Cardiovascular: no chest pain Gastrointestinal: no abdominal pain and no constipation Physical Exam Constitutional: well developed, well nourished and + obese; no acute distress and no altered mental status ENMT: external ear and nose normal, oropharynx normal Respiratory: normal respiratory effort, lungs clear to auscultation Cardiovascular: Rate/Rhythm: regular rate and regular rhythm Heart Sounds: normal S1 and normal S2; no murmur Vessels: posterior tibial pulses present and dorsalis pedis pulses present; no JVD Extremities: + edema (1+ bilaterally ) Gastrointestinal (Abdomen): normal bowel sounds, soft, nontender, no hepatosplenomegaly Psychiatric: A+Ox3, euthymic affect Results & Data Results & Data ([facility]) Vital Signs (Past 12 Hours) Vital Signs Temp Pulse Pulse Resp BP Pulse Ox 07/22/19 15:16 37.3 C 69 18 104/67 94 07/22/19 11:35 64 16 96 07/22/19 11:11 36.3 C L 66 20 100/54 L 95 07/22/19 07:58 76 14 96 07/22/19 07:57 66 07/22/19 07:00 36.6 C 77 20 117/72 91 Laboratory Results Laboratory Results - last 24 hr 07/22/19 07/22/19 07/22/19 08:24 08:28 08:28 WBC 7.98 RBC 3.61 L Hgb 9.9 L Hct 30.7 L MCV 85.0 MCH 27.4 MCHC 32.2 RDW Std Deviation 46.0 RDW Coeff of Ranjana 16.2 H Plt Count 312 MPV 9.8 PT 19.5 H INR 1.9 H Sodium 136 Potassium 4.2 Chloride 106 Carbon Dioxide 24 Anion Gap 7.0 BUN 13 Creatinine 0.87 Est Cr Clr Drug Dosing 47.2 Est GFR ( Amer) 70.9 Est GFR (Non-Af Amer) 61.2 BUN/Creatinine Ratio 15.4 Glucose 125 H Calcium 8.6 PG Care Time/CCT Total # of Minutes Spent Total Time Spent with Patient: Total time spent is greater than 50% in coordination of care (as documented) at patient's floor/unit and/or counseling patient: Coding Level of Care Code 43512 Subseq Hosp Care Lvl 2 Diagnoses Pulmonary emboli I26.99 Acute cor pulmonale presence: without acute cor pulmonale Chronicity: acute Pulmonary embolism type: unspecified DVT (deep venous thrombosis) I82.402 Affected thrombotic vein of extremity: unspecified vein of extremity Chronicity: acute DVT location: lower extremity Laterality: left Fever R50.9 Fever type: unspecified Dyspnea on exertion R06.00 Acute diastolic (congestive) heart failure I50.31 Essential (primary) hypertension I10 SVT (supraventricular tachycardia) I47.1 UTI (urinary tract infection) N30.00 Hematuria presence: without hematuria Urinary tract infection type: acute cystitis Chronic kidney disease, stage 3a N18.3 Exposure to COVID-19 virus Z20.828 Physical deconditioning R53.81 (1) UTI (urinary tract infection) Hematuria presence: without hematuria Urinary tract infection type: acute cystitis Qualified Code(s): N30.00 - Acute cystitis without hematuria (2) Fever Fever type: unspecified Qualified Code(s): R50.9 - Fever, unspecified (3) DVT (deep venous thrombosis) Affected thrombotic vein of extremity: unspecified vein of extremity Chronicity: acute DVT location: lower extremity Laterality: left Qualified Code(s): I82.402 - Acute embolism and thrombosis of unspecified deep veins of left lower extremity (4) Pulmonary emboli Acute cor pulmonale presence: without acute cor pulmonale Chronicity: acute Pulmonary embolism type: unspecified Qualified Code(s): I26.99 - Other pulmonary embolism without acute cor pulmonale
[2019-07-22] MEDS: MIRTAZAPINE TAB 15 MG TAB PO SCH (20:05)
[2019-07-22] MEDS: TAMSULOSIN HCL 0.4 MG CAP PO SCH (20:05)
[2019-07-22] MEDS: SERTRALINE HCL 50 MG TABLET PO SCH (20:06)
[2019-07-23] MEDS: ENOXAPARIN 80 MG/0.8 ML SYR SQ SCH ×2 (05:55→17:57)
[2019-07-23 06:25] LABS: INR 1.9 (0.9-1.1); Prothrombin Time 19.2 Seconds (9.0-12.0)
[2019-07-23] MEDS: ALBUTEROL HFA 8 GM INHALER INH SCH ×3 (07:24→20:04)
[2019-07-23] MEDS: IPRATROPIUM BROMIDE HFA INHALER INH SCH ×3 (07:24→20:04)
[2019-07-23] MEDS ORDERED: SODIUM CHLORIDE 0.9% 250 ML IV PRN (07:25)
[2019-07-23] MEDS ORDERED: POTASSIUM CHLORIDE 20 MEQ TABCR PO ONE (08:30)
[2019-07-23] MEDS: METOPROLOL SUCC 25MG EXT REL TAB PO SCH (08:59)
[2019-07-23] MEDS: CEROVITE ADV FORMULA TAB PO SCH (08:59)
[2019-07-23] MEDS: AMLODIPINE BESYLATE 5 MG TAB PO SCH (08:59)
[2019-07-23] MEDS: THIAMINE HCL 100 MG TAB PO SCH (09:00)
[2019-07-23] MEDS ORDERED: CALCIUM GLUCONATE 10% 1,000 MG in SODIUM CHLORIDE 0.9% 50 ML IV ONE (09:15)
[2019-07-23 09:16] LABS: Ferritin 277.9 ng/ml (8-388)
[2019-07-23 09:24] LABS: Hematocrit (blood only) 31.9 % (37-47); Hemoglobin 10.5 g/dL (12.0-16.0)
[2019-07-23 10:29] LABS: BUN Creatinine Ratio 13.9 (10-20); Calcium 8.6 mg/dl (8.5-10.1); Creatinine Clr Calc Pharmacy 45.5 ml/min; Est GFR (Non-African American) 59.5; Potassium 4.1 mmol/L (3.5-5.1)
[2019-07-23 10:48] LABS: Mean Corpuscular Hemoglobin 26.7 pg (25-34); Platelet Count 325 K/uL (130-400); RDW Coefficient of Variation 16.3 % (11.5-14.5); RDW Standard Deviation 46.9 fL (36.4-46.3); Red Blood Count 3.93 M/uL (4.2-5.4); White Blood Count 6.48 K/uL (4.8-10.8)
[2019-07-23 11:04] LABS: Mean Corpuscular Hgb Conc 32.9 g/dL (32-36); Mean Corpuscular Volume 83.3 fL (80-100)
[2019-07-23] MEDS: WARFARIN SOD 5 MG TAB PO SCH (15:47)
--- NOTE | 2019-07-23 19:51 | Hospitalist Progress Note ---
Date of Service July 23, 2019 Assessment & Plan (1) Pulmonary emboli: left-sided PEs with LLE DVT. likely the main reason for presenting dyspnea at admission. First dose of coumadin was 7.5mg on 07/14. received another dose of 7.5mg on 07/15. INR kyrie to >2 for 48 hours but then trended to 1.9. Received 4mg on 07/20; 5mg on 07/21. Will redose at 5mg again today. Repeat INR in am. Cont lovenox 1mg/kg BID. I believe extremely sedentary lifestyle and isolation at the [facility] led to immobility and hence the VTE. no recent surgery or travel. no COVID disease. coumadin constitutes high risk medication and careful monitoring (2) DVT (deep venous thrombosis): LLE. Suspect due to sedentary lifestyle in the midst of lockdown/isolation from COVID-19. lovenox/coumadin see above (3) Fever: earlier this admission - resolved. was likely 2nd to DVT/PE. biofire panel negative at admission. COVID-19 negative at admission. COVID-19 serological ab test negative. had UTI - adequately treated. blood cx's also negative. (4) Dyspnea on exertion: acute on chronic. acute - PEs +/- diastolic CHF. chronic - etiology uncertain. patient reports improvement in "wheezing" with bronchodilators. consider outpatient PFTs. may have some form of obstructive lung disease causing chronic ROBERTO and chronic wheezing (or wheeze is from "cardiac" wheezing from pulm edema?). either way o2 sats are normal; lung exam normal today. (5) Acute diastolic (congestive) heart failure: resolved use lasix prn (6) Essential (primary) hypertension: Cont home meds (7) SVT (supraventricular tachycardia): cont BB (8) UTI (urinary tract infection): completed 7 days of Rx resolved (9) Chronic kidney disease, stage 3a: baseline CrCL 40s/50s BMP cont to remain stable (10) Exposure to COVID-19 virus: multiple cases of COVID-19 at the [facility] in June patient did not have obvious COVID disease but son states patient has been short of breath for 1-2 months COVID-19 PCR neg COVID-19 serological antibody test negative (11) Hypocalcemia: ionized Ca is low thus - calcium gluconate 1gm x 1 repeat BMP am (12) Physical deconditioning: rehab recommended by PT/OT [facility] accepted patient but did not have bed social work trying to secure 2nd option - possible SNF in [facility] d/c to SNF tomorrow? patient with low Hb this am - repeat checked and was wnl also with low calcium today - gave calcium gluconate 1gm x 1 repeat BMP am updated Vinny - son - 07/23/19 Admission and Anticipated Discharge Date Admission Date: July 14, 2019 Subjective patient feeling well. no new complaints. just wants to get out of hospital. eating well. breathing is normal. Review of Systems Constitutional: no fever, no chills, no fatigue and no anorexia Respiratory: no cough and no wheezing Cardiovascular: no chest pain Gastrointestinal: no abdominal pain Physical Exam Constitutional: well developed, well nourished and + obese; no acute distress and no altered mental status ENMT: external ear and nose normal, oropharynx normal Respiratory: normal respiratory effort, lungs clear to auscultation Cardiovascular: Rate/Rhythm: regular rate and regular rhythm Heart Sounds: normal S1 and normal S2; no murmur Vessels: posterior tibial pulses present and dorsalis pedis pulses present; no JVD Extremities: + edema (trace RLE; 1+ LLE ) Gastrointestinal (Abdomen): normal bowel sounds, soft, nontender, no hepatosplenomegaly Psychiatric: A+Ox3, euthymic affect Results & Data Results & Data ([facility]) Vital Signs (Past 12 Hours) Vital Signs Temp Pulse Resp BP Pulse Ox 07/23/19 15:41 36.6 C 75 18 112/59 L 97 Laboratory Results Laboratory Results - last 24 hr 07/23/19 07/23/19 07/23/19 06:01 06:01 06:01 WBC RBC Hgb Hct MCV MCH MCHC RDW Std Deviation RDW Coeff of Ranjana Plt Count MPV PT 19.2 H INR 1.9 H Sodium Potassium Chloride Carbon Dioxide Anion Gap BUN Creatinine Est Cr Clr Drug Dosing Est GFR ( Amer) Est GFR (Non-Af Amer) BUN/Creatinine Ratio Glucose Calcium Ionized Calcium Iron Transferrin Transferrin % Sat Ferritin Blood Type Antibody Screen Crossmatch 07/23/19 07/23/19 07/23/19 08:08 08:08 08:08 WBC 6.48 RBC 3.93 L Hgb 10.5 L Hct 31.9 L MCV 83.3 MCH 26.7 MCHC 32.9 RDW Std Deviation 46.9 H RDW Coeff of Ranjana 16.3 H Plt Count 325 MPV 10.0 PT INR Sodium Potassium Chloride Carbon Dioxide Anion Gap BUN Creatinine Est Cr Clr Drug Dosing Est GFR ( Amer) Est GFR (Non-Af Amer) BUN/Creatinine Ratio Glucose Calcium Ionized Calcium Iron 37 Transferrin 255 Transferrin % Sat 10 L Ferritin 277.9 Blood Type O Positive Antibody Screen NEGATIVE Crossmatch See Detail 07/23/19 07/23/19 08:08 08:26 WBC RBC Hgb Hct MCV MCH MCHC RDW Std Deviation RDW Coeff of Ranjana Plt Count MPV PT INR Sodium 136 Potassium 4.1 Chloride 105 Carbon Dioxide 24 Anion Gap 7.0 BUN 12 Creatinine 0.89 Est Cr Clr Drug Dosing 45.5 Est GFR ( Amer) 69.0 Est GFR (Non-Af Amer) 59.5 BUN/Creatinine Ratio 13.9 Glucose 147 H Calcium 8.6 Ionized Calcium 1.04 L Iron Transferrin Transferrin % Sat Ferritin Blood Type Antibody Screen Crossmatch PG Care Time/CCT Total # of Minutes Spent Total Time Spent with Patient: Total time spent is greater than 50% in coordination of care (as documented) at patient's floor/unit and/or counseling patient: Coding Level of Care Code 38568 Subseq Hosp Care Lvl 3 Diagnoses Pulmonary emboli I26.99 Pulmonary embolism type: unspecified Chronicity: acute Acute cor pulmonale presence: without acute cor pulmonale DVT (deep venous thrombosis) I82.402 DVT location: lower extremity Affected thrombotic vein of extremity: unspecified vein of extremity Chronicity: acute Laterality: left Fever R50.9 Fever type: unspecified Dyspnea on exertion R06.00 Acute diastolic (congestive) heart failure I50.31 Essential (primary) hypertension I10 SVT (supraventricular tachycardia) I47.1 UTI (urinary tract infection) N30.00 Urinary tract infection type: acute cystitis Hematuria presence: without hematuria Chronic kidney disease, stage 3a N18.3 Exposure to COVID-19 virus Z20.828 Hypocalcemia E83.51 Physical deconditioning R53.81 (1) Pulmonary emboli Pulmonary embolism type: unspecified Chronicity: acute Acute cor pulmonale presence: without acute cor pulmonale Qualified Code(s): I26.99 - Other pulmonary embolism without acute cor pulmonale (2) DVT (deep venous thrombosis) DVT location: lower extremity Affected thrombotic vein of extremity: unspecified vein of extremity Chronicity: acute Laterality: left Qualified Code(s): I82.402 - Acute embolism and thrombosis of unspecified deep veins of left lower extremity (3) Fever Fever type: unspecified Qualified Code(s): R50.9 - Fever, unspecified (4) UTI (urinary tract infection) Urinary tract infection type: acute cystitis Hematuria presence: without hematuria Qualified Code(s): N30.00 - Acute cystitis without hematuria
[2019-07-23] MEDS: SERTRALINE HCL 50 MG TABLET PO SCH (20:06)
[2019-07-23] MEDS: TAMSULOSIN HCL 0.4 MG CAP PO SCH (20:07)
[2019-07-23] MEDS: MIRTAZAPINE TAB 15 MG TAB PO SCH (20:07)
[2019-07-24] MEDS: ALBUTEROL HFA 8 GM INHALER INH SCH ×5 (03:54→18:31)
[2019-07-24] MEDS: IPRATROPIUM BROMIDE HFA INHALER INH SCH ×5 (03:54→18:32)
[2019-07-24] MEDS: ENOXAPARIN 80 MG/0.8 ML SYR SQ SCH ×2 (05:36→18:31)
[2019-07-24 08:00] LABS: INR 2.2 (0.9-1.1); Prothrombin Time 22.4 Seconds (9.0-12.0)
[2019-07-24 08:25] LABS: Calcium 8.7 mg/dl (8.5-10.1); Creatinine Clr Calc Pharmacy 52.2 ml/min; Est GFR (African American) 80.9; Est GFR (Non-African American) 69.8; Potassium 4.3 mmol/L (3.5-5.1)
[2019-07-24] MEDS: AMLODIPINE BESYLATE 5 MG TAB PO SCH (08:38)
[2019-07-24] MEDS: THIAMINE HCL 100 MG TAB PO SCH (08:38)
[2019-07-24] MEDS: METOPROLOL SUCC 25MG EXT REL TAB PO SCH (08:38)
[2019-07-24] MEDS: CEROVITE ADV FORMULA TAB PO SCH (08:38)
[2019-07-24] MEDS: WARFARIN SOD 5 MG TAB PO SCH (16:32)
--- NOTE | 2019-07-24 19:31 | Hospitalist Progress Note ---
Date of Service July 24, 2019 Assessment & Plan (1) Pulmonary emboli: left-sided PEs with LLE DVT. likely the main reason for presenting dyspnea at admission. First dose of coumadin was 7.5mg on 07/14. received another dose of 7.5mg on 07/15. INR kyrie to >2 for 48 hours but then trended to 1.9. Received 4mg on 07/20; 5mg on 07/21, 07/22, and then again today. INR today 2.2. If INR >2 tomorrow can stop lovenox 1mg/kg BID. I believe extremely sedentary lifestyle and isolation at the [facility] led to i mmobility and hence the VTE. no recent surgery or travel. no COVID disease. coumadin constitutes high risk medication and careful monitoring (2) DVT (deep venous thrombosis): LLE. Suspect due to sedentary lifestyle in the midst of lockdown/isolation from COVID-19. lovenox/coumadin see above (3) Fever: earlier this admission - resolved. was likely 2nd to DVT/PE. biofire panel negative at admission. COVID-19 negative at admission. COVID-19 serological ab test negative. had UTI - adequately treated. blood cx's also negative. (4) Dyspnea on exertion: acute on chronic. acute - PEs + acute diastolic CHF. acute issues resolved. chronic - suspect some form of obstructive lung issue. Wheezing improved with bronchodilators this admission. She states daily how much the "puffers help." consider outpatient PFTs. (5) Acute diastolic (congestive) heart failure: resolved use lasix prn (6) Essential (primary) hypertension: Cont home meds Controlled (7) SVT (supraventricular tachycardia): cont BB (8) UTI (urinary tract infection): completed 7 days of Rx resolved (9) Chronic kidney disease, stage 3a: baseline CrCL 40s/50s BMP cont to remain stable (10) Exposure to COVID-19 virus: multiple cases of COVID-[address] [facility] living facility in June patient did not have obvious COVID disease but son states patient has been short of breath for 1-2 months COVID-19 PCR neg COVID-19 serological antibody test negative needs yet another COVID-19 test to gain entrance to [facility] in [facility] [employer] swab sent on 6/11/20 (11) Physical deconditioning: rehab recommended by PT/OT [facility] accepted patient but [facility]24 updated Vinny - son - 07/23/19 will update him again tomorrow check mag level due to nocturnal cramps last pm Admission and Anticipated Discharge Date Admission Date: July 14, 2019 Subjective no complaints today other than she wants out of hospital and is disappointed she can't go back to the [place] no new physical complaints except had cramps in legs last pm Review of Systems Respiratory: no cough, no dyspnea and no dyspnea on exertion Cardiovascular: no chest pain Gastrointestinal: no abdominal pain Physical Exam Constitutional: well developed, well nourished and + obese; no acute distress and no altered mental status ENMT: external ear and nose normal, oropharynx normal Respiratory: normal respiratory effort, lungs clear to auscultation Cardiovascular: Rate/Rhythm: regular rate and regular rhythm Heart Sounds: normal S1 and normal S2; no murmur Vessels: posterior tibial pulses present and dorsalis pedis pulses present; no JVD Extremities: + edema (trace RLE; <1+ LLE ) Gastrointestinal (Abdomen): normal bowel sounds, soft, nontender, no hepatosplenomegaly Psychiatric: A+Ox3, euthymic affect Results & Data Results & Data ([facility]) Vital Signs (Past 12 Hours) Vital Signs Temp Pulse Resp BP BP Pulse Ox 07/24/19 15:49 36.8 C 64 18 119/58 L 96 07/24/19 07:38 36.5 C 72 17 123/70 93 Laboratory Results Laboratory Results - last 24 hr 07/23/19 07/24/19 07/24/19 08:08 07:20 07:20 PT 22.4 H INR 2.2 H Sodium 137 Potassium 4.3 Chloride 107 Carbon Dioxide 24 Anion Gap 6.0 BUN 15 Creatinine 0.78 Est Cr Clr Drug Dosing 52.2 Est GFR ( Amer) 80.9 Est GFR (Non-Af Amer) 69.8 BUN/Creatinine Ratio 19.0 Glucose 117 H Calcium 8.7 SARS-CoV-2 RNA (RT-PCR) Crossmatch See Detail 07/24/19 14:00 PT INR Sodium Potassium Chloride Carbon Dioxide Anion Gap BUN Creatinine Est Cr Clr Drug Dosing Est GFR ( Amer) Est GFR (Non-Af Amer) BUN/Creatinine Ratio Glucose Calcium SARS-CoV-2 RNA (RT-PCR) Pending Crossmatch PG Care Time/CCT Total # of Minutes Spent Total Time Spent with Patient: Total time spent is greater than 50% in coordination of care (as documented) at patient's floor/unit and/or counseling patient: Coding Level of Care Code 44734 Subseq Hosp Care Lvl 2 Diagnoses Pulmonary emboli I26.99 Pulmonary embolism type: unspecified Chronicity: acute Acute cor pulmonale presence: without acute cor pulmonale DVT (deep venous thrombosis) I82.402 DVT location: lower extremity Affected thrombotic vein of extremity: unspecified vein of extremity Chronicity: acute Laterality: left Fever R50.9 Fever type: unspecified Dyspnea on exertion R06.00 Acute diastolic (congestive) heart failure I50.31 Essential (primary) hypertension I10 SVT (supraventricular tachycardia) I47.1 UTI (urinary tract infection) N30.00 Urinary tract infection type: acute cystitis Hematuria presence: without hematuria Chronic kidney disease, stage 3a N18.3 Exposure to COVID-19 virus Z20.828 Physical deconditioning R53.81 (1) Pulmonary emboli Pulmonary embolism type: unspecified Chronicity: acute Acute cor pulmonale presence: without acute cor pulmonale Qualified Code(s): I26.99 - Other pulmonary embolism without acute cor pulmonale (2) DVT (deep venous thrombosis) DVT location: lower extremity Affected thrombotic vein of extremity: unspecified vein of extremity Chronicity: acute Laterality: left Qualified Code(s): I82.402 - Acute embolism and thrombosis of unspecified deep veins of left lower extremity (3) Fever Fever type: unspecified Qualified Code(s): R50.9 - Fever, unspecified (4) UTI (urinary tract infection) Urinary tract infection type: acute cystitis Hematuria presence: without hematuria Qualified Code(s): N30.00 - Acute cystitis without hematuria
[2019-07-24] MEDS: MIRTAZAPINE TAB 15 MG TAB PO SCH (20:17)
[2019-07-24] MEDS: SERTRALINE HCL 50 MG TABLET PO SCH (20:18)
[2019-07-24] MEDS: TAMSULOSIN HCL 0.4 MG CAP PO SCH (20:18)
[2019-07-25] MEDS: ENOXAPARIN 80 MG/0.8 ML SYR SQ SCH (05:43)
[2019-07-25] MEDS: ALBUTEROL HFA 8 GM INHALER INH SCH ×2 (06:01→10:55)
[2019-07-25] MEDS: IPRATROPIUM BROMIDE HFA INHALER INH SCH ×2 (06:01→10:55)
[2019-07-25 07:43] LABS: INR 2.4 (0.9-1.1); Prothrombin Time 24.4 Seconds (9.0-12.0)
[2019-07-25 07:44] LABS: Hemoglobin 10.7 g/dL (12.0-16.0); Mean Corpuscular Hemoglobin 27.5 pg (25-34); Mean Corpuscular Hgb Conc 32.4 g/dL (32-36); Mean Corpuscular Volume 84.8 fL (80-100); Mean Platelet Volume 9.5 fL (7.4-10.4); Nucleated RBC # (auto) 0.02 K/uL (0-0); Nucleated RBC % (auto) 0.4 %; Platelet Count 335 K/uL (130-400); RDW Coefficient of Variation 16.4 % (11.5-14.5); RDW Standard Deviation 48.5 fL (36.4-46.3); Red Blood Count 3.89 M/uL (4.2-5.4); White Blood Count 5.41 K/uL (4.8-10.8)
[2019-07-25] MEDS: AMLODIPINE BESYLATE 5 MG TAB PO SCH (08:49)
[2019-07-25] MEDS: CEROVITE ADV FORMULA TAB PO SCH (08:49)
[2019-07-25] MEDS: METOPROLOL SUCC 25MG EXT REL TAB PO SCH (08:49)
[2019-07-25] MEDS: THIAMINE HCL 100 MG TAB PO SCH (08:50)
[2019-07-25] MEDS ORDERED: FUROSEMIDE 20 MG TAB PO ONE (09:05)
[2019-07-25] MEDS ORDERED: FAMOTIDINE 20 MG TAB PO SCH (09:15)
[2019-07-25] MEDS ORDERED: FEXOFENADINE 60 MG TAB PO SCH (09:15)
[2019-07-25] MEDS ORDERED: TRIAMCINOLONE ACET NASAL SPRAY 10.8ML BTL NAE SCH (09:15)
--- NOTE | 2019-07-25 10:43 | XRay Report ---
XR chest 2V PA/lateral CLINICAL HISTORY: wheezing COMPARISON STUDY: 07/16/2019 FINDINGS: The cardiac and mediastinal contours are normal. There is no evidence of focal pulmonary co nsolidation. There is no evidence of failure. There is blunting the posterior costophrenic angles. Tr marissa effusions cannot be excluded.[There is stable linear subsegmental atelectasis/scarring within the right middle lobe. There are multiple lumbar vertebral body compression fractures. There are several thoracic vertebral body compression fractures. IMPRESSION: 1. No evidence of failure. No evidence of focal pulmonary consolidation 2. Blunting of posterior costophrenic angles. Trace effusions cannot be excluded 3. Multiple lumbar and thoracic vertebral body compression deformities. ACT 112: Negative or not required by law. Electronically signed by: Kaden Duron M.D. 07/25/2019 10:42 AM
--- NOTE | 2019-07-25 12:05 | Discharge Summary ---
Date of Service date of admission - July 12, 2019 date of discharge - July 25, 2019 Admission HPI Per Admitting Provider Patient is an 84-year-old female with a past medical history of SVT and hypertension who presents with 1 day of shortness of breath with a fever to approximately 100 F at the [facility]. At bedside she endorses that she has been short of breath for 1 day without a cough or sputum production. She notes that walking to the bathroom increases her shortness of breath. She does not have a normal home oxygen requirement. She denies a history of asthma/COPD, denies history of heart disease including congestive heart failure and [place]. No tobacco use in the last 4 years, 1 pack/week sporadic use prior to this. She has not had any chest pain, jaw pain, or shoulder pain. She is not had any lightheadedness or dizziness. She has not had a feeling that she is going to p ass out. She endorses increased urinary output without dysuria or blood in the urine for 2 to 3 days. She denies abdominal and lower back pain. She lives alone at the [facility] and has been mostly quarantining, she denies any recent sick contacts. Medical history: Patient denies history of medical problems. Surgical history: Reviewed Medications: Reviewed Allergies: No known drug allergies Social: Denies alcohol use. Denies tobacco use in the last 4 years, 1 pack/week sporadic tobacco use prior to this. She lives alone at the [facility]. No recent sick contacts. Denies recreational drug use. CODE STATUS: DNR/DNI. Discussed with patient. Patient reports she would not want chest compressions if her heart were to stop, and would not want intubation if she were not able to breathe on her own. Principal Diagnosis LLE DVT with PEs Discharge Exam Constitutional well developed, well nourished and + obese; no acute distress and no altered mental status ENMT external ear and nose normal, oropharynx normal Respiratory normal respiratory effort, lungs clear to auscultation Auscultation: + wheezes (Occasionally, and only when she purses her lips with breathing) Cardiovascular Rate/Rhythm: regular rate and regular rhythm Heart Sounds: normal S1 and normal S2; no murmur Vessels: posterior tibial pulses present and dorsalis pedis pulses present; no JVD Extremities: + edema (trace RLE; <1+ LLE ) Gastrointestinal (Abdomen) normal bowel sounds, soft, nontender, no hepatosplenomegaly Psychiatric A+Ox3, euthymic affect Discharge Data Allergies Allergy/AdvReac Type Severity Reaction Status Date / Time No Known Allergies Allergy Verified 07/12/19 17:52 Consultations PT, OT Case Management Procedures Performed COVID-19 IgG serological antibody test - NEGATIVE COVID-19 PCR - NEGATIVE (07/12/19; 07/24/19) Ordered Studies 07/12/19 22:47 CT abd pelvis wo con - no acute process CT chest wo con - IMPRESSION: 1. Slight interstitial prominence throughout both hemithoraces. 2. Otherwise no acute process the chest. 07/13/19 08:24 US abdomen limited - normal; liver normal; no gallstones. 07/14/19 14:30 US venous doppler LE BI - FINDINGS: Normal evaluation of the right leg. Venous flow is unremarkable. Left leg shows acute deep venous thrombosis within the popliteal posterior tibial and peroneal veins. 07/14/19 15:59 CT angio chest PE protocol - IMPRESSION: 1. Acute pulmonary embolism with moderate left pulmonary artery thrombus burden. Hospital Course (1) Pulmonary emboli: left-sided PEs with LLE DVT. likely the main reason for presenting dyspnea at admission. I believe extremely sedentary lifestyle and isolation at her [facility] during the COVID-19 pandemic led to immobility and hence the VTE. no recent surgery or travel. no COVID disease. Patient did NOT have Medicare Part D coverage and thus novel anticoagulants were not an option due to high cost. Thus, she was initiated on heparin with coumadin. First dose of coumadin was 07/15/19. Later in her stay therapeutic lovenox was used in eleanor of heparin infusion. INR on day of discharge was 2.4. She completed 48-hours of "overlap" therapy and thus lovenox was discontinued on day of discharge. Coumadin dosing at discharge -- * 5mg every Sunday, Sunday, Sunday and Sunday * 4mg every Sunday, , and Sunday * above subject to change Additional recommendations at discharge -- * DAILY INR checks for at least 5 days starting July 25 * INR goal 2-3 * Length of treatment with coumadin - at least 6 months * All INR checks should go to medical staff director for his/her review (2) DVT (deep venous thrombosis): LLE. Suspect due to sedentary lifestyle in the midst of lockdown/isolation from COVID-19. lovenox/coumadin throughout her stay see above in "pulmonary emboli" (3) Fever: earlier in admission - resolved. was likely 2nd to DVT/PE. biofire respiratory panel negative at admission. COVID-19 negative at admission. COVID-19 serological ab test negative. had UTI - adequately treated. blood cx's negative. repeat COVID-19 PCR test on 07/24/2019 NEGATIVE. (4) Dyspnea on exertion: acute on chronic. acute - PEs + acute diastolic CHF. acute issues resolved with anticoagulation and diuresis. chronic - suspect some form of obstructive lung issue. Her intermittent wheezing improved with bronchodilators this admission. She stated daily how much the "puffers help" (ie - combivent). consider outpatient PFTs with pulmonary once she returns to the [facility]. (5) Acute diastolic (congestive) heart failure: resolved with IV lasix. discharge weight 84 kg. 07/25/2019 chest x-ray without pulmonary edema. recommend daily weights and PRN lasix use for weight gains of more than 2-3 pounds in 1-2 days. (6) Essential (primary) hypertension: Cont home meds Controlled (7) SVT (supraventricular tachycardia): history of such, and had brief runs of atrial tachycardia on telemetry while here. cont beta ute. (8) UTI (urinary tract infection): completed 7 days of Rx for e.coli UTI. resolved. (9) Chronic kidney disease, stage 3a: baseline CrCL 40s/50s discharge Cr 0.7 (10) Exposure to COVID-19 virus: multiple cases of COVID-19 at the [facility] in June 2019 patient did not have obvious COVID disease or symptoms of such this spring while living there (has chronic dyspnea on exertion however) COVID-19 PCR negative x 2 COVID-19 serological IgG antibody test negative (11) Physical deconditioning: rehab recommended by PT/OT transferring to the [facility] in [facility] for such with ultimate goal of returning to the [facility] following rehab Total Time Total Time Spent Total Time Spent (In Minutes): 60 Total Time Includes: Examination of the Patient, Discharge Planning and Medication Reconciliation Discharge Plan Discharge Items Patient Disposition: Transfer Care Home Fac Reason For Visit: shortness of breath Discharge Diagnosis: 1. pulmonary emboli 2. left leg DVTs 3. acute diastolic CHF 4. obesity 5. chronic dyspnea - uncertain etiology; asthma-like condition? needs pulmonary follow-up for PFTs 6. e.coli UTI - resolved 7. CKD stage 3 8. HTN 9. chronic post-nasal drip - allergies vs GERD Activity: Resume your previous activity Non-emergency contact: Primary Care Provider Call non-emergency contact if: you have any medication questions, your symptoms worsen and you have a fever Follow-up/Referrals: Tre Adorno PA-C [Physician Frameman] - (see Kishor Adorno or any provider - [facility] - for chronic wheezing and need for PFTs; first available appointment ) Tomer Belcher MD [Primary Care Provider] - (see Dr Belcher upon return to the [facility] in [place] ) Diet: Heart Healthy Fluids: 1800ml (7 cups) Addtl Attending Provider Instructions: Patient was treated for problems listed in "discharge diagnoses" above. Recommendations - 1. DAILY INR starting AM of 07/26/19, for at least 5 days. INR goal 2-3. Report INR values to medical staff director. INR is 2.4 on 07/25/[address] [facility]. 2. pulmonary referral - [facility] - first available 3. CBC, BMP in 1 week for stability; results to medical staff director Pending Studies at Discharge: Yes Studies:: COVID-19 PCR testing (prior COVID-19 test on 07/12/19 was NEGATIVE) Stand-Alone Forms: My [facility] Skilled Items Patient informed of condition?: Yes DNR: Yes Discharge Level of Care: Skilled Communicable Disease: No Discharge Prognosis: Stable Lines: None Urinary Catheter: No Medications and DC Order Prescriptions: New fexofenadine 60 mg Tablet 60 mg PO BID Qty: 60 RF: 0 famotidine 20 mg Tablet 20 mg PO BID Qty: 60 RF: 0 triamcinolone acetonide [Nasacort] 55 mcg Aerosol,Kendall 2 spray GERMAN DAILY Qty: 1 RF: 0 warfarin 5 mg Tablet 5 mg PO DIRECTED Qty: 30 RF: 0 warfarin [Coumadin] 4 mg tablet 4 mg PO DIRECTED Qty: 30 RF: 0 furosemide [Lasix] 20 mg tablet 20 mg PO QAM PRN (Reason: edema OR weight gain of more than 2 # in 1-2 days) Qty: 30 RF: 0 Combivent Respimat 20-100 mcg/actuation mist 1 puffs INH Q6H Qty: 4 RF: 1 Continued amlodipine 10 mg tablet 10 mg PO QAM RF: 0 metoprolol succinate 25 mg capsule,sprinkle,ER 24hr 25 mg PO QAM RF: 0 losartan 50 mg Tablet 50 mg PO QAM RF: 0 sertraline [Zoloft] 50 mg Tablet 50 mg PO HS RF: 0 cholecalciferol (vitamin D3) 125 mcg (5,000 unit) Tablet 125 mcg PO QAM RF: 0 mirtazapine 7.5 mg Tablet 7.5 mg PO HS RF: 0 acetaminophen [Tylenol] 325 mg Tablet 650 mg PO QID MDD 3G PRN (Reason: Fever Or Pain) RF: 0 Calmoseptine 0.44-20.6 % Ointment 1 applic TOPICAL BID PRN (Reason: Skin Irritation) RF: 0 thiamine HCl (vitamin B1) 100 mg Tablet 100 mg PO QAM RF: 0 tamsulosin 0.4 mg capsule 0.4 mg PO QPM RF: 0 multivitamin with minerals [Multiple Vitamin-Minerals] Tablet 1 tab PO QAM RF: 0 Discharge Orders: Discharge Order (Routine); Ordered 07/25/19 Ordered By: Taz Dejesus/Other Patient Handouts: DVT, Embolism Pulmonary Admission Data Admit Date/Time: 07/14/19 16:02 Attending Provider: Taz Abel Admit Provider: Tomer Tony Primary Care Provider: Tomer Belcher Other Providers: Az Lynch ; Taz Abel Other Interventions: Discharge Summary Assessment (RN) Last Done: 07/25/19 11:58 DC Date/Time DO NOT enter until pt leaves facility: 07/25/19 15:44 Coding Level of Care Code D/C Day Management >30 mins Diagnoses Pulmonary emboli I26.99 Acute cor pulmonale presence: without acute cor pulmonale Chronicity: acute Pulmonary embolism type: unspecified DVT (deep venous thrombosis) I82.402 Affected thrombotic vein of extremity: unspecified vein of extremity Chronicity: acute DVT location: lower extremity Laterality: left Fever R50.9 Fever type: unspecified Dyspnea on exertion R06.00 Acute diastolic (congestive) heart failure I50.31 Essential (primary) hypertension I10 SVT (supraventricular tachycardia) I47.1 UTI (urinary tract infection) N30.00 Hematuria presence: without hematuria Urinary tract infection type: acute cystitis Chronic kidney disease, stage 3a N18.3 Exposure to COVID-19 virus Z20.828 Physical deconditioning R53.81
== END 2019-07-25 15:44 | DRG 175 ==
LOC: ED 15:48 → 1E 15:48 → SUATTDRO 22:47 → 1E 23:17 → 2W 07-13 15:55 → SUATTDRO 07-14 16:02